=== PATIENT | female | born 1945 | race Caucasian/White ===

== ENCOUNTER → 2018-01-28 | Outpatient (CLI) | payer OTHER ==
[~2018-01-28] MED LIST: ATOR-22 PO; HYDC25 PO; LISI-461 PO; OMEP20CA9 OR; SERT50TA PO; SYNUNK
[2018-01-28 12:08] LABS: BASO % 0.3 %; BASO ABS # 0.02 K/uL (0-0.2); EOS % 2.2 %; EOS ABS # 0.15 K/uL (0-0.5); HEMATOCRIT 38.5 % (37-47); IG# 0.01 K/uL (0.00-0.02); LYMPH % 19.4 %; LYMPH ABS # 1.32 K/uL (1.2-3.4); MEAN CELL VOLUME 88.1 fL (80-100); MEAN CORPUSCULAR HEMOGLOBIN 29.7 pg (25-34); MEAN CORPUSCULAR HGB CONC 33.8 g/dl (32-36); MEAN PLATELET VOLUME 10.5 fL (7.4-10.4); MONO % 5.6 %; MONO ABS # 0.38 K/uL (0.11-0.59); NEUT % 72.4 %; NEUT ABS # 4.93 K/uL (1.4-6.5); PLATELET COUNT 198 K/uL (130-400); RED CELL DISTRIBUTION WIDTH CV 14.9 % (11.5-14.5); WHITE BLOOD COUNT 6.81 K/uL (4.8-10.8)
[2018-01-28 12:41] LABS: ALBUMIN 3.7 gm/dl (3.4-5.0); ALT/SGPT 58 U/L (12-78); AST/SGOT 37 U/L (15-37); BLOOD UREA NITROGEN 16 mg/dl (7-18); CALCIUM 8.9 mg/dl (8.5-10.1); CARBON DIOXIDE 24 mmol/L (21-32); CREATININE 1.04 mg/dl (0.60-1.20); GLUCOSE 119 mg/dl (70-99); POTASSIUM 3.9 mmol/L (3.5-5.1); SODIUM 138 mmol/L (136-145)
[2018-01-28 12:53] LABS: ALKALINE PHOSPHATASE 47 U/L (45-117); CHOLESTEROL 255 mg/dl (0-200); LDL CHOLESTEROL CALCULATED 170 mg/dl; TOTAL PROTEIN 7.6 gm/dl (6.4-8.2)
== END | disposition home or self-care (01) ==
LOC: C.LAB1850 10:00
PROVIDERS: ATTEND Internal Medicine
DX: E03.9 Hypothyroidism, unspecified (principal); E78.5 Hyperlipidemia, unspecified; I10 Essential (primary) hypertension; E55.9 Vitamin D deficiency, unspecified

== ENCOUNTER → 2018-06-11 | Day surgery (SDC) | payer OTHER ==
[2018-05-28 09:21] VITALS: Ht 157.5 cm; Wt 90.9 kg
[~2018-06-11] VITALS: Ht 157.5 cm; Wt 90.9 kg
[~2018-06-11] MED LIST changes: +500ML BSS 0.3ML EPI 1:1000PF IRRIG ONE; +ACETAMINOPHEN 325 MG TAB PO PRN; +AMVISC PLUS 0.8ML SYRINGE INT OCU ONE; +ATROPINE SULFATE 0.1 MG/ML 5ML SYR IV PRN; +AcetaZOLAMIDE 250 MG TAB PO SCH; +BETAXOLOL HCL 0.25% OP SUSP PER DROP CHARGE OPR SCH; +BRIMONIDINE TART 0.2% OP SOLN PER DROP CHARGE ONE; +BSS FLUSH ONE; +CARTIA PO; +ENDOCOAT 0.85ML SYRINGE INT OCU ONE; +EpHEDrine SULFATE INJ 50 MG/ML AMP IV PRN; +EpINEphrine INJ 1MG/ML AMP 1 MG/ML AMP ONE; +FENTANYL CITRATE INJ 50 MCG/1 ML 2 ML VIAL IV PRN; -HYDC25 PO; +HYDR25TA4 PO; +LACTATED RINGER'S 1000ML 500 ML IV SCH; +LEVO50TA6 PO; +LIDOCAINE 4% OP SOLN DROP CHARGE ONE; +LIDOCAINE 4% OP SOLN DROP CHARGE OPR SCH; +LIDOCAINE HCL 1% MPF 2 ML VIAL ONE; +MIDAZOLAM HCL 1 MG/ML 2ML VIAL ONE; +MIX: 4ML BSS 1ML EPI 1:1000 PF INSTIL ONE; +MOXIFLOXACIN OPH SOLN PER DROP CHARGE ONE; -OMEP20CA9 OR; +OMEP20CA9 PO; +ONDANSETRON INJ 2 MG/ML 2 ML VIAL IV PRN; +POVIDONE-IODINE OP SOLN 30 ML BTL ONE; +PROPARACAINE 0.5% OP SOLN PER DROP CHARGE OPR SCH; -SYNUNK; +TOBRAMYCIN/DEXAMETHASONE OPH OINT PER APPLN CHARGE ONE
[2018-06-11] MEDS: PHENYLEPHRINE HCL 2.5% OP SOLN PER DROP CHARGE OPR SCH ×2 (06:08→07:29)
--- NOTE | 2018-06-11 06:51 | History & Physical Bridge - SC ---
H&P Re-Evaluation Bridge Note: I have examined the patient, reviewed the History & Physical and in the interval since the performance of the History & Physical I have noted the following changes of clinical significance: No changes noted
[2018-06-11] MEDS: TROPICAMIDE 1% OP SOLN PER DROP CHARGE OPR SCH ×2 (07:30→07:39)
[2018-06-11] MEDS: CYCLOPENTOLATE HCL 1% OP SOLN PER DROP CHARGE OPR SCH ×2 (07:31→07:40)
[2018-06-11] MEDS: MOXIFLOXACIN OPH SOLN PER DROP CHARGE OPR SCH ×2 (07:32→07:41)
--- NOTE | 2018-06-11 07:58 | [facility] Operative Report ---
Operative Report Date of Service Jun 11, 2018. Operative Report 1. PREOPERATIVE DIAGNOSIS: Senile nuclear cataract, right eye. 2. POSTOPERATIVE DIAGNOSIS: Senile nuclear cataract, right eye. 3. PROCEDURE: Phacoemulsification of right cataract with posterior chamber lens implant, type [employer], model MI60L, power +30.0 diopters. ANESTHESIA: Local standby. SURGEON: Dr. Flores. COMPLICATIONS: None. OPERATING TIME: 10 minutes. 4. OPERATION AND FINDINGS: DESCRIPTION OF PROCEDURE: The right pupil was dilated. The anesthetic was administered using a topical technique. The right eye was prepped and draped. A speculum was placed. A clear corneal incision was formed. The chamber was filled with Amvisc Plus and Endocoat. Epinephrine solution was used. A paracentesis was placed. A capsulorrhexis was performed. The nucleus was hydrodissected. The lens was removed with phacoemulsification. Time was 1.76 seconds. The aspiration unit was used to remove the cortex. The capsule was filled with Amvisc Plus. The lens implant was folded and placed into the capsule. The incision was hydrated. The Amvisc was aspirated. The wound was secure. The chamber was deep. The pupil was round. Brimonidine, TobraDex ointment and Vigamox solution were placed. The speculum was removed. The patient was returned to the Recovery Room in stable condition. I attest to the content of the Intraoperative Record and any orders documented therein. Any exceptions are noted below. The scribe's documentation has been prepared in my presence, under my direction and personally reviewed by me in its entirety. I confirm that the note above accurately reflects all work, treatment, procedures, and medical decision making performed by me. I personally scribed for James Flores M.D. ([email or web address]) on 06/11/18 at 07:58. Electronically submitted by Kelly Salgado ([email or web address]).
--- NOTE | 2018-06-11 07:59 | Discharge Instructions-SurgCtr ---
Discharge Instructions Date of Service Jun 11, 2018. Visit Reason for Visit: Cataract Right Eye Discharge Discharge Diagnosis / Problem: lens implant right eye Discharge Goals Goal(s): Improve function Activity Recommendations Activity Limitations: resume your previous activity Lifting Limitations: no more than 10 pounds Exercise/Sports Limitations: gradually increase as tolerated May Resume Sexual Activity: when tolerated Shower/Bathe: tomorrow Driving or Machine Use: resume 1 day after discharge Anesthesia . Post Anesthesia Instructions: If you have had General Anesthesia or IV Sedation: * Do not drive today. * Resume driving when surgeon permits. * Do not make important decisions or sign legal documents today. * Call surgeon for: 1. Temperature elevations greater than 101 degrees F. 2. Uncontrollable pain. 3. Excessive bleeding. 4. Persistent nausea and vomiting. 5. Medication intolerance (nausea, vomiting or rash). * For nausea and vomiting use only clear liquids such as: tea, soda, bouillon until nausea subsides, then gradually increase diet as tolerated. * If you have any concerns or questions, call your surgeon's office. If physician is unavailable and it is an emergency, call 911 or go to the nearest emergency room. . Instructions / Follow-Up Instructions / Follow-Up ACTIVITY RECOMMENDATIONS: * Light activities. * Mild irritation and blurred vision are common for the first few days. * You may walk outside, read, watch television. * Redness around the white part of the eye is common. MEDICATIONS: Resume previous medications unless instructed otherwise by your surgeon. * Take white Diamox (Acetazolamide) tablet at 1 pm today. Start all eye drops at 1 pm today: * Eye drops (today and tomorrow): Prednisone - one drop in operative eye every 3 hours while awake Ofloxacin - one drop in operative eye every 3 hours while awake SPECIAL CARE INSTRUCTIONS: * Tape plastic shield over eye to sleep at night. Call your doctor at with any concerns or problems. FOLLOW UP VISIT: Follow-up with Dr Flores at [facility] as scheduled. Diet Recommendations Home Diet: no limitations Procedures Procedures Performed: Right Cataract Phacoemulsification With Intraocular Lens Implant Pending Studies Studies pending at discharge: no Medical Emergencies . Who to Call and When: Medical Emergencies: If at any time you feel your situation is an emergency, please call 911 immediately. . Non-Emergent Contact Non-Emergency issues call your: Event Mgr Call Non-Emergent contact if: your pain is not controlled [phone] . . "Provider Documentation" section prepared by James Flores. .
[2018-06-11 08:02] VITALS: TEMP 36.5
[2018-06-11 08:28] VITALS: BP 150/78; PULSE 75; O2SAT 95
--- NOTE | 2018-06-11 08:34 | Anesthesia Progress Nt - [facility] ---
Anesthesia Post Op Note Date & Time Jun 11, 2018 at 08:33 Vital Signs Pain Intensity: 2 Vital Signs Past 12 Hours Date Time Temp Pulse Resp B/P (MAP) Pulse Ox O2 Delivery O2 Flow Rate FiO2 06/11/18 08:28 75 16 150/78 (102) 95 Room Air 06/11/18 08:02 36.5 75 16 137/79 (98) 93 Room Air 06/11/18 07:07 36.7 78 16 152/83 (106) 96 Room Air Notes Mental Status: alert / awake / arousable, participated in evaluation Pt Amnestic to Procedure: Yes Nausea / Vomiting: adequately controlled Pain: adequately controlled Airway Patency, RR, SpO2: stable & adequate BP & HR: stable & adequate Hydration State: stable & adequate Anesthetic Complications: no major complications apparent
== END | disposition home or self-care (01) ==
LOC: X.SURG 06:48
PROVIDERS: ATTEND Specialist
DX: H25.11 Age-related nuclear cataract, right eye (principal); I10 Essential (primary) hypertension; Z88.0 Allergy status to penicillin; Z79.899 Other long term (current) drug therapy; E66.01 Morbid (severe) obesity due to excess calories; Z68.43 Body mass index [BMI] 50.0-59.9, adult; F32.9 Major depressive disorder, single episode, unspecified

== ENCOUNTER 2019-03-13 08:08 | Inpatient (IN) ==
[2019-03-13] MEDS ORDERED: ACETAMINOPHEN 1,000 MG/100 ML VIAL IV ONE (08:34)
[2019-03-13] MEDS ORDERED: SODIUM CHLORIDE 0.9% 1000ML 1,000 ML IV ONE (08:36)
--- NOTE | 2019-03-13 08:56 | XRay Report ---
XR chest 1V portable CLINICAL HISTORY: 73 years-old Female presenting with chest pain, SOB. TECHNIQUE: Portable upright AP view of the chest was obtained. COMPARISON: None. FINDINGS: Atherosclerosis of the aortic arch. Cardiac silhouette mildly enlarged. Mildly low lung volumes. Coar sened lung markings. Right basilar opacity. No large effusion or pneumothorax. Degenerative changes o f the thoracic spine. Upper abdomen normal. IMPRESSION: 1. Right basilar opacity, possibly subsegmental atelectasis although this is indeterminate. Confirma tion with PA and lateral views to be considered. 2. Mild cardiomegaly. Coarsened lung markings could relate to underlying mild interstitial congestiv e change. No bolivar pulmonary edema. Electronically signed by: Grant Jameson M.D. 03/13/2019 8:55 AM
[2019-03-13 09:05] LABS: Hematocrit (blood only) 30.5 % (37-47); Hemoglobin 10.3 g/dL (12.0-16.0); Mean Corpuscular Hgb Conc 33.8 g/dL (32-36); Mean Corpuscular Volume 86.4 fL (80-100); Mean Platelet Volume 9.5 fL (7.4-10.4); Nucleated RBC # (auto) 0.02 K/uL (0-0); Nucleated RBC % (auto) 0.1 %; Platelet Count 111 K/uL (130-400); RDW Coefficient of Variation 18.6 % (11.5-14.5); RDW Standard Deviation 58.1 fL (36.4-46.3); Red Blood Count 3.53 M/uL (4.2-5.4); White Blood Count 15.56 K/uL (4.8-10.8)
[2019-03-13 09:21] LABS: Alanine Aminotransferase 40 U/L (12-78); Albumin Level 3.1 gm/dl (3.4-5.0); Aspartate Aminotransferase 21 U/L (15-37); BUN Creatinine Ratio 12.3 (10-20); Blood Urea Nitrogen 13 mg/dl (7-18); Calcium 8.3 mg/dl (8.5-10.1); Carbon Dioxide 23 mmol/L (21-32); Chloride 102 mmol/L (98-107); Creatinine Clr Calc Pharmacy 51.1 ml/min; Est GFR (African American) 58.7; Est GFR (Non-African American) 50.7; Glucose 140 mg/dl (70-99); Sodium 134 mmol/L (136-145)
[2019-03-13 09:26] LABS: Alkaline Phosphatase 56 U/L (45-117); Bilirubin,Total 1.3 mg/dl (0.2-1); Globulin 3.2 gm/dl (2.5-4.0); Total Protein 6.3 gm/dl (6.4-8.2); Troponin I < 0.015 ng/ml (0-0.045)
[2019-03-13 09:52] LABS: Basophils # (auto) 0.01 K/uL (0-0.2); Basophils % (auto) 0.1 %; Eosinophils # (auto) 0.01 K/uL (0-0.5); Eosinophils % (auto) 0.1 %; Immature Granulocytes % (auto) 2.6 %; Lymphocytes # (auto) 0.65 K/uL (1.2-3.4); Lymphocytes % (auto) 4.2 %; Monocytes # (auto) 0.56 K/uL (0.11-0.59); Monocytes % (auto) 3.6 %; Neutrophils # (auto) 13.93 K/uL (1.4-6.5); Neutrophils % (auto) 89.4 %; Toxic Granulation 1+
--- NOTE | 2019-03-13 10:52 | XRay Report ---
XR chest 2V routine CLINICAL HISTORY: 73 years-old Female presenting with Eval R basilar infiltrate vs atelectasis. TECHNIQUE: PA and lateral views of the chest were obtained. COMPARISON: AP view of the chest performed earlier today. FINDINGS: Atherosclerosis of the aortic arch. Cardiac silhouette enlarged. Bandlike basilar opacities noted in the lower lobes. No pleural effusion or pneumothorax. Degenerative changes of the thoracic spine. Upp er abdomen normal. IMPRESSION: 1. Minimal basilar opacities likely atelectasis or scarring. No convincing evidence of acute cardiop ulmonary disease. 2. Cardiomegaly. Electronically signed by: Grant Jameson M.D. 03/13/2019 10:50 AM
--- NOTE | 2019-03-13 11:02 | Emergency Department Note ---
History of Present Illness General Chief complaint: Cough Stated complaint: COUGH, FEVER, DRY SKIN Time Seen by Provider: 03/13/19 08:12 History of Present Illness Maximum Pain Intensity: 0 73-year-old female, history of breast cancer recently completing a course of chemotherapy, who presents to the emergency department with complaint of sore throat, shortness of breath, dry nonproductive cough, weakness, intermittent diarrhea, loss of appetite and fever of 100.4 F this morning. The patient reports discomfort when attempting to drink fluids. The patient completed her last round of chemotherapy on 03/02/2019. She was scheduled to drive to [facility] today to see her oncologist and surgeon to discuss planning for bilateral mastectomy. After her mastectomy procedure, the patient reports that she then is to undergo radiation therapy. The patient denies any urinary symptoms, back pain or abdominal pain. She does not recall any sick contacts. She rates her overall discomfort a 2 out of 10. Home Medications Home Medications Medication Instructions Recorded Confirmed Type acetaminophen [Tylenol Extra 500 mg PO Q6H PRN 03/13/19 03/13/19 History Strength] cholecalciferol (vitamin D3) 2,000 unit PO HS 03/13/19 03/13/19 History [Vitamin D3] cyclophosphamide 0 mg IV UD 03/13/19 03/13/19 History dexamethasone 8 mg PO UD 03/13/19 03/13/19 History diltiazem HCl [Cartia XT] 120 mg PO QAM 03/13/19 03/13/19 History levothyroxine 50 mcg PO QAM 03/13/19 03/13/19 History lisinopril 10 mg PO QAM 03/13/19 03/13/19 History omeprazole 10 mg PO QAM 03/13/19 03/13/19 History paclitaxel 0 mg IV UD 03/13/19 03/13/19 History sertraline 100 mg PO QAM 03/13/19 03/13/19 History Allergies Allergy/AdvReac Type Severity Reaction Status Date / Time Penicillins Allergy Intermediate RASH Unverified 03/13/19 11:42 shellfish derived Allergy Mild HIVES RASH Unverified 03/13/19 11:42 Past Med/Surg History Medical History Depression GERD (gastroesophageal reflux disease) HTN (hypertension) Hypothyroid Breast cancer PNA (pneumonia) No significant past surgical history Family History Father Stroke Social History Preferred Language: Japanese Communication Ability: Effective 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 Denies difficulty swallowing or oral lesions. PULMONARY: See HPI. CARDIOVASCULAR: Denies chest pain, palpitations, dyspnea on exertion, orthopnea or peripheral edema. GASTROINTESTINAL: Denies any significant nausea, vomiting, or abdominal pain. GENITOURINARY: Denies dysuria, frequency, urgency or nocturia. NEUROLOGIC: Denies history of epilepsy, CVA, TIA or chronic headaches. MUSCULOSKELETAL: Denies history of joint tenderness/swelling. SKIN: Denies rashes or lesions. PSYCHIATRIC: History of depression. ENDOCRINE: Denies history of diabetes. Reports history of hypothyroidism. Physical Exam Vital Signs Vital Signs - 24 hr 03/13/19 08:16 03/13/19 08:50 03/13/19 09:02 Temperature 37.2 C Temperature Source Oral Sepsis Recent Fever Within 48 Hours No Sepsis New/Unexplained Change in Mental Status No Sepsis Action Taken by Nursing No Action Required Pulse Rate 122 H 101 H Pulse Rate from SpO2 Sensor 100 H Respiratory Rate 18 14 Respiratory Effort / Characteristics Non-Labored Spontaneous Respiratory Depth Normal Respiratory Pattern Regular Blood Pressure 137/69 131/80 Blood Pressure Mean 91 97 Blood Pressure Position Sitting Pulse Oximetry 96 87 L 94 Oxygen Delivery Method Room Air Room Air Nasal Cannula Oxygen Flow Rate 2 03/13/19 09:31 03/13/19 10:01 03/13/19 10:02 Temperature Temperature Source Sepsis Recent Fever Within 48 Hours Sepsis New/Unexplained Change in Mental Status Sepsis Action Taken by Nursing Pulse Rate 94 H 93 H 92 H Pulse Rate from SpO2 Sensor 94 H 94 H 92 H Respiratory Rate 19 20 20 Respiratory Effort / Characteristics Respiratory Depth Respiratory Pattern Blood Pressure 135/68 125/69 Blood Pressure Mean 90 87 Blood Pressure Position Pulse Oximetry 95 96 95 Oxygen Delivery Method Oxygen Flow Rate 2 2 03/13/19 10:30 03/13/19 10:31 03/13/19 11:00 Temperature 36.8 C Temperature Source Sepsis Recent Fever Within 48 Hours Sepsis New/Unexplained Change in Mental Status Sepsis Action Taken by Nursing Pulse Rate 91 H 91 H Pulse Rate from SpO2 Sensor 91 H 91 H 100 H Respiratory Rate 18 19 Respiratory Effort / Characteristics Respiratory Depth Respiratory Pattern Blood Pressure 96/54 L Blood Pressure Mean 68 Blood Pressure Position Pulse Oximetry 94 94 96 Oxygen Delivery Method Oxygen Flow Rate 03/13/19 11:25 03/13/19 11:30 03/13/19 12:01 Temperature Temperature Source Sepsis Recent Fever Within 48 Hours Sepsis New/Unexplained Change in Mental Status Sepsis Action Taken by Nursing Pulse Rate Pulse Rate from SpO2 Sensor 92 H 91 H 90 Respiratory Rate Respiratory Effort / Characteristics Respiratory Depth Respiratory Pattern Blood Pressure 126/63 133/66 120/61 Blood Pressure Mean 84 88 80 Blood Pressure Position Pulse Oximetry 96 96 96 Oxygen Delivery Method Oxygen Flow Rate 03/13/19 12:04 03/13/19 12:31 03/13/19 13:00 Temperature Temperature Source Sepsis Recent Fever Within 48 Hours Sepsis New/Unexplained Change in Mental Status Sepsis Action Taken by Nursing Pulse Rate 85 Pulse Rate from SpO2 Sensor 85 85 Respiratory Rate 17 Respiratory Effort / Characteristics Non-Labored Spontaneous SOB on Exertion Respiratory Depth Normal Respiratory Pattern Blood Pressure 114/63 119/59 L Blood Pressure Mean 80 79 Blood Pressure Position Pulse Oximetry 96 95 Oxygen Delivery Method Nasal Cannula Oxygen Flow Rate 2 CONSTITUTIONAL: Healthy and well nourished. Alert and oriented X 3. Patient does not appear in any acute distress, nor does she appear toxic. HEENT: Normocephalic, atraumatic. Pupils equal, round and reactive. Examination of the ears and nares are clear. Examination of the oropharynx shows minimal posterior pharyngeal erythema. Mucous membranes are dry. No exudates noted. NECK: Full active range of motion without discomfort. No nuchal rigidity. No JVD or carotid bruits. LYMPHATICS: No cervical chain adenopathy appreciated. RESPIRATORY: Clear to auscultation bilaterally with no wheezing, crackles, rhonchi or stridor. CARDIOVASCULAR: Regular rate and rhythm with no murmurs, rubs or gallops. GASTROINTESTINAL: Bowel sounds present in all quadrants. Abdomen is soft and nontender to palpation. MUSCULOSKELETAL: Full range of motion of all joints without discomfort. INTEGUMENTARY: No rash or other significant dermatologic conditions noted. HEMATOLOGIC: No ecchymosis or petechiae. PSYCHIATRIC: Positive affect. NEUROLOGIC: No focal neurologic deficits noted. Course Patient history and physical exam were performed. Nurse's notes were reviewed. Initial vital signs were reviewed. The patient is currently afebrile, but does have a heart rate of 122 bpm. She is normotensive. IV access was established, and labs were drawn. The patient was hydrated with normal saline, and administered IV Tylenol. Review of labs shows a moderate leukocytosis with left shift and bandemia. No neutropenia is noted. Hemoglobin is 10.3. I did review labs that were performed for the patient on 03/02/2019 that showed a hemoglobin of 9.9 and a count of 163,000. Lately count today is 111,000. INR is 1.2. CMP shows a mild hyponatremia and mildly elevated total bilirubin. LFTs are normal. Sed rate and C-reactive protein are markedly elevated with a [id number] lactate elevation of 2.29. An initial portable chest x-ray shows a right basilar infiltrate versus atelectasis. A two-view chest x-ray was therefore performed and did not show any obvious consolidations. Initial ECG shows a sinus bradycardia of [address] elevation or ischemic changes. The case was further discussed with Dr. Mata, ED attending physician, who recommended additional IV hydration, along with IV cefepime and vancomycin antibiotics. The case was then discussed with Dr. Melba Bradford, [facility] hospitalist. The patient was evaluated and admitted to the hospital. Please see their dictation for further treatment and final disposition. Administered Medications Sodium Chloride (Nss 1000ml) 1,000 mls @ 125 mls/hr IV .Q8H STA Stop: 03/13/19 19:46 Last Infusion: 03/13/19 16:15 Dose: 0 mls/hr Documented by: [id number] Admin: 03/13/19 12:56 Dose: 125 mls/hr Documented by: [id number] Sodium Chloride (1/2 Nss) 1,000 mls @ 50 mls/hr IV .Q20H TERA Stop: 04/12/19 16:59 Last Admin: 03/13/19 16:18 Dose: 50 mls/hr Documented by: [id number] Discontinued Medications Acetaminophen (Ofirmev) 1,000 mg in 100 mls @ 400 mls/hr IV NOW ONE Stop: 03/13/19 08:48 Last Infusion: 03/13/19 09:27 Dose: 0 mls/hr Documented by: [id number] Admin: 03/13/19 09:09 Dose: 400 mls/hr Documented by: [id number] Sodium Chloride (Nss 1000ml) 1,000 mls @ 999 mls/hr IV .Q1H1M ONE Stop: 03/13/19 09:36 Last Infusion: 03/13/19 10:11 Dose: 0 mls/hr Documented by: [id number] Admin: 03/13/19 09:09 Dose: 999 mls/hr Documented by: [id number] Sodium Chloride (Nss 1000ml) 500 mls @ 999 mls/hr IV .Q31M ONE Stop: 03/13/19 12:17 Last Infusion: 03/13/19 12:56 Dose: 0 mls/hr Documented by: [id number] Admin: 03/13/19 12:23 Dose: 999 mls/hr Documented by: [id number] Vancomycin HCl 1,750 mg/ (Sodium Chloride) 535 mls @ 200 mls/hr IV NOW ONE; Protocol Stop: 03/13/19 14:27 Last Infusion: 03/13/19 15:30 Dose: 0 mls/hr Documented by: [id number] Admin: 03/13/19 12:24 Dose: 200 mls/hr Documented by: [id number] Cefepime HCl 1,000 mg/ Syringe 11.3 mls @ 5.5 mls/min IV NOW STA; Protocol Stop: 03/13/19 11:49 Last Admin: 03/13/19 12:39 Dose: 5.5 mls/min Documented by: [id number] Medical Decision Making Medical Records Attestation: I reviewed the patient's medical records. Home Medications Current Medication List: was personally reviewed by me Laboratory Data Attestation: I reviewed the patient's lab results. Result diagrams: 03/13/19 08:56 03/13/19 08:56 Lab Results 03/13/19 03/13/19 03/13/19 Range/Units 08:56 08:56 09:01 WBC 15.56 H (4.8-10.8) K/uL RBC 3.53 L (4.2-5.4) M/uL Hgb 10.3 L (12.0-16.0) g/dL Hct 30.5 L (37-47) % MCV 86.4 (80-100) fL MCH 29.2 (25-34) pg MCHC 33.8 (32-36) g/dL RDW Std Deviation 58.1 H (36.4-46.3) fL RDW Coeff of Catrachito 18.6 H (11.5-14.5) % Plt Count 111 L (130-400) K/uL MPV 9.5 (7.4-10.4) fL Immature Gran % (Auto) 2.6 % Neut % (Auto) 89.4 % Lymph % (Auto) 4.2 % Ward % (Auto) 3.6 % Eos % (Auto) 0.1 % Baso % (Auto) 0.1 % Immature Gran # (Auto) 0.40 H (0.00-0.02) K/uL Neut # (Auto) 13.93 H (1.4-6.5) K/uL Lymph # (Auto) 0.65 L (1.2-3.4) K/uL Ward # (Auto) 0.56 (0.11-0.59) K/uL Eos # (Auto) 0.01 (0-0.5) K/uL Baso # (Auto) 0.01 (0-0.2) K/uL Absolute Nucleated RBC 0.02 H (0-0) K/uL Nucleated RBC % (auto) 0.1 % Toxic Granulation 1+ Sodium 134 L (136-145) mmol/L Potassium 4.0 (3.5-5.1) mmol/L Chloride 102 (98-107) mmol/L Carbon Dioxide 23 (21-32) mmol/L Anion Gap 9.0 (3-11) BUN 13 (7-18) mg/dl Creatinine 1.09 (0.6-1.2) mg/dl Est Cr Clr Drug Dosing 51.1 ml/min Est GFR ( Amer) 58.7 Est GFR (Non-Af Amer) 50.7 BUN/Creatinine Ratio 12.3 (10-20) Glucose 140 H (70-99) mg/dl POC Lactic Acid Braden 2.29 H (0.90-1.70) mmol/L Calcium 8.3 L (8.5-10.1) mg/dl Total Bilirubin 1.3 H (0.2-1) mg/dl AST 21 (15-37) U/L ALT 40 (12-78) U/L Alkaline Phosphatase 56 (45-117) U/L Troponin I < 0.015 (0-0.045) ng/ml C-Reactive Protein 14.90 H (0-0.29) mg/dl Total Protein 6.3 L (6.4-8.2) gm/dl Albumin 3.1 L (3.4-5.0) gm/dl Globulin 3.2 (2.5-4.0) gm/dl Albumin/Globulin Ratio 1.0 (0.9-2) Imaging Data Attestation: I personally reviewed and interpreted this imaging study as follows: My Impression: Initial portable chest x-ray shows a right basilar consolidation versus atelectasis. No cardiomegaly or pneumothorax noted. Repeat two-view chest x-ray shows minimal basilar opacities likely atelectasis or scarring. Cardia megaly is noted. Radiologist reports were reviewed. Radiologist's Impression: XR chest 1V portable CLINICAL HISTORY: 73 years-old Female presenting with chest pain, SOB. TECHNIQUE: Portable upright AP view of the chest was obtained. COMPARISON: None. FINDINGS: Atherosclerosis of the aortic arch. Cardiac silhouette mildly enlarged. Mildly low lung volumes. Coarsened lung markings. Right basilar opacity. No large effusion or pneumothorax. Degenerative changes of the thoracic spine. Upper a bdomen normal. IMPRESSION: 1. Right basilar opacity, possibly subsegmental atelectasis although this is indeterminate. Confirmation with PA and lateral views to be considered. 2. Mild cardiomegaly. Coarsened lung markings could relate to underlying mild interstitial congestive change. No bolivar pulmonary edema. XR chest 2V routine CLINICAL HISTORY: 73 years-old Female presenting with Eval R basilar infiltrate vs atelectasis. TECHNIQUE: PA and lateral views of the chest were obtained. COMPARISON: AP view of the chest performed earlier today. FINDINGS: Atherosclerosis of the aortic arch. Cardiac silhouette enlarged. Bandlike basilar opacities noted in the lower lobes. No pleural effusion or pneumothorax. Degenerative changes of the thoracic spine. Upper abdomen normal. IMPRESSION: 1. Minimal basilar opacities likely atelectasis or scarring. No convincing evidence of acute cardiopulmonary disease. 2. Cardiomegaly. ECG Data Attestation: I personally reviewed and interpreted this ECG as follows: Indication: SOB/dyspnea and weakness Rhythm: sinus bradycardia Comparison ECG Date: no prior available Blood Pressure Blood Pressure Findings: Normal blood pressure MDM Narrative Patient presents for evaluation of weakness, cough, sore throat and fever for less than 24 hours. Patient has a history of breast cancer with recent chemotherapy. The patient is currently not neutropenic. She does have a moderate leukocytosis and mild thrombocytopenia. I suspect the source of the patient's infection is likely upper respiratory. Chest x-ray does show consolidation versus atelectasis, and given the patient's current fever, underlying pneumonia cannot be ruled out. Based on work-up, I do not suspect myocardial infarction. Chest x-ray is not consistent with heart failure. Impression & Plan Upper respiratory infection, Breast cancer Discharge Plan Visit Data *Final* Discharge Date/Time: 03/13/19 13:52 Chief Complaint: Cough Stated Complaint: COUGH, FEVER, DRY SKIN ED Provider: Caleb Mata ED Midlevel Provider: Jesu Hector Discharge Problem: Upper respiratory infection, Breast cancer Patient Disposition: Admitted As Inpatient Discharge Instructions Interventions: ED Discharge Assessment Last Done: 03/13/19 13:52
[2019-03-13] MEDS ORDERED: SODIUM CHLORIDE 0.9% 1000ML 1,000 ML IV STA (11:47)
[2019-03-13] MEDS ORDERED: SODIUM CHLORIDE 0.9% 1000ML 500 ML IV ONE (11:47)
[2019-03-13] MEDS ORDERED: VANCOMYCIN CONSULT ACTIVE PRN (11:47)
[2019-03-13] MEDS ORDERED: VANCOMYCIN HCL 1,750 MG in SODIUM CHLORIDE 0.9% 500 ML IV ONE (11:47)
[2019-03-13] MEDS ORDERED: CEFEPIME 1,000 MG in SYRINGE 0 ML IV STA (11:47)
--- NOTE | 2019-03-13 13:37 | History & Physical Report ---
Date of Service March 13, 2019 Assessment & Plan (1) PNA (pneumonia): CXR as noted, PNA vs atelectasis Pt has elevated WBC, however recent steroid use BP is borderline hypoTN, however BP medication was recently increased Elevated lactic acid Given pt's immunocompromised state, will treat as PNA for now Cefepime/vanco started in the ED, continue with cefepime and will re-dose vanco if febrile (2) Breast cancer: Just finished chemo [place] [facility] [place] m[place] in March, date is TBD, with radiation after (3) Hypothyroid: continue home meds (4) HTN (hypertension): Pt with lisinopril increased last week from 10mg to 20mg and home BPs have been lower Monitor with 10mg for now (5) GERD (gastroesophageal reflux disease): continue home meds (6) Depression: continue home meds (7) DVT prophylaxis: Lovenox for DVT proph History of Present Illness Primary Care Provider: Armin Mosher MD 73 y/o F c/o cough and SOB. Pt states she has been coughing and getting SOB with exertion only for the last 2 days. She has had decreased appetite for some time now, which she associates with her chemo. She does tolerate the PO she takes. She has intermittent diarrhea since starting her chemo as well. Pt noted a fever of 100.4 this AM, so came to the ED. Pt received IVF and abx in the ED and states she is feeling much improved. Pt denies chest pain, abd pain, n/v, LE pain or swelling. Allergies Allergy/AdvReac Type Severity Reaction Status Date / Time Penicillins Allergy Intermediate RASH Unverified 03/13/19 11:42 shellfish derived Allergy Mild HIVES RASH Unverified 03/13/19 11:42 Home Medications Home Medications Medication Instructions Recorded Confirmed Type acetaminophen [Tylenol Extra 500 mg PO Q6H PRN 03/13/19 03/13/19 History Strength] cholecalciferol (vitamin D3) 2,000 unit PO HS 03/13/19 03/13/19 History [Vitamin D3] cyclophosphamide 0 mg IV UD 03/13/19 03/13/19 History dexamethasone 8 mg PO UD 03/13/19 03/13/19 History diltiazem HCl [Cartia XT] 120 mg PO QAM 03/13/19 03/13/19 History levothyroxine 50 mcg PO QAM 03/13/19 03/13/19 History lisinopril 10 mg PO QAM 03/13/19 03/13/19 History omeprazole 10 mg PO QAM 03/13/19 03/13/19 History paclitaxel 0 mg IV UD 03/13/19 03/13/19 History sertraline 100 mg PO QAM 03/13/19 03/13/19 History Past Med/Surg History Family History Father Stroke Social History Preferred Language: Nepali Communication Ability: Effective Video Editing Intern Required: No Beliefs That Will Affect Care: None Current Living Situation: Spouse Other Information That Helps Us Care for You: No Feels Safe at Home: Yes Safety Concerns: Feels Safe At This Time Smoking Status: Never smoker Do You Dip or Chew Tobacco: No Second Hand Exposure: No Tobacco Cessation Education Requested by Patient: No Hx Alcohol Use: Yes (occasional prior to cancer, dx but none now) Hx Substance Use: No Review of Systems Review of Systems: Pertinent positives and negatives reviewed in HPI--all others negative Physical Exam Constitutional: WD/WN, vitals as above Eyes: normal visual campa by confrontation and + anicteric sclerae Neck: normal visual inspection and trachea midline Respiratory: normal respiratory effort; no respiratory distress Auscultation: + crackles (R base); no wheezes Cardiovascular: Rate/Rhythm: regular rate and regular rhythm Gastrointestinal (Abdomen): Inspection/Auscultation: abdomen not distended Percussion/Palpation: abdomen soft; abdomen nontender Musculoskeletal: Head/Neck/Chest: normocephalic and head atraumatic negative for edema, peripheral pulses intact Skin: no rashes, warm and dry Neurologic: awake; not confused Speech / Cognition: normal speech Psychiatric: A+Ox3, euthymic affect Results & Data Vital Signs (Past 12 Hours) Vital Signs Temp Pulse Resp BP Pulse Ox 03/13/19 13:00 85 17 119/59 L 95 03/13/19 12:31 114/63 96 03/13/19 12:01 120/61 96 03/13/19 11:30 133/66 96 03/13/19 11:25 126/63 96 03/13/19 11:00 36.8 C 96 03/13/19 10:31 91 H 19 96/54 L 94 03/13/19 10:30 91 H 18 94 03/13/19 10:02 92 H 20 95 03/13/19 10:01 93 H 20 125/69 96 03/13/19 09:31 94 H 19 135/68 95 03/13/19 09:02 101 H 14 131/80 94 03/13/19 08:50 87 L 03/13/19 08:16 37.2 C 122 H 18 137/69 96 Diagnostic Findings CXR: atelectasis vs RLL PNA ECG Rhythm: normal sinus Code Status & VTE Plan Code Status Full code VTE Prophylaxis Plan VTE Prophylaxis will be ordered: Yes
[2019-03-13] MEDS ORDERED: ACETAMINOPHEN 500 MG TAB PO PRN (15:56)
[2019-03-13] MEDS ORDERED: MAGNESIUM HYDROXIDE SUSP 30 ML UDC PO PRN (15:56)
[2019-03-13] MEDS: SODIUM CHLORIDE 0.45 % 1,000 ML IV SCH ×2 (16:17→16:18)
--- NOTE | 2019-03-13 16:36 | Emergency Department Note ---
Entered by Krysta Villanueva acting as a scribe for Caleb Mata MD ED Visit Note The patient was seen and examined by myself in conjunction with the advanced care provider, Jesu Hector PA-C. I agree with the history, physical and findings as documented. Please see the note for disposition and details. . The scribe's documentation has been prepared under my direction and personally reviewed by me in its entirety. I confirm that the note above accurately reflects all work, treatment, procedures, and medical decision making performed by me.
[2019-03-13 16:58] LABS: INR 1.2 (0.9-1.1); Prothrombin Time 11.7 Seconds (9.0-12.0)
[2019-03-13] MEDS: ONDANSETRON INJ 2 MG/ML 2 ML VIAL IV PRN (19:38)
[2019-03-13] MEDS: CHOLECALCIFEROL 1,000 UNITS TAB PO SCH (20:46)
[2019-03-13] MEDS: CEFEPIME 2,000 MG in SYRINGE 7.5 ML IV SCH (20:46)
[2019-03-14] MEDS: LEVOTHYROXINE SODIUM 50 MCG TABLET PO SCH (05:49)
[2019-03-14 06:00] LABS: Hematocrit (blood only) 26.3 % (37-47); Hemoglobin 8.6 g/dL (12.0-16.0); Mean Corpuscular Hgb Conc 32.7 g/dL (32-36); Mean Corpuscular Volume 88.6 fL (80-100); RDW Coefficient of Variation 18.6 % (11.5-14.5); RDW Standard Deviation 59.6 fL (36.4-46.3); Red Blood Count 2.97 M/uL (4.2-5.4); White Blood Count 10.44 K/uL (4.8-10.8)
[2019-03-14 06:34] LABS: BUN Creatinine Ratio 11.9 (10-20); Calcium 7.9 mg/dl (8.5-10.1); Creatinine Clr Calc Pharmacy 67.9 ml/min; Est GFR (African American) 82.9; Est GFR (Non-African American) 71.5
[2019-03-14 06:35] LABS: Anisocytosis Present; Basophils # (auto) 0.01 K/uL (0-0.2); Basophils % (auto) 0.1 %; Dohle Bodies 1+; Eosinophils # (auto) 0.01 K/uL (0-0.5); Eosinophils % (auto) 0.1 %; Immature Granulocytes # (auto) 0.12 K/uL (0.00-0.02); Immature Granulocytes % (auto) 1.1 %; Lymphocytes # (auto) 0.38 K/uL (1.2-3.4); Lymphocytes % (auto) 3.6 %; Mean Platelet Volume 9.5 fL (7.4-10.4); Monocytes # (auto) 0.63 K/uL (0.11-0.59); Neutrophils # (auto) 9.29 K/uL (1.4-6.5); Neutrophils % (auto) 89.1 %; Phosphorus 3.6 mg/dl (2.5-4.9); Platelet Count 82 K/uL (130-400); Tear Drop Cells 1+
[2019-03-14] MEDS: CEFEPIME 2,000 MG in SYRINGE 7.5 ML IV SCH ×2 (08:36→20:42)
[2019-03-14] MEDS: dilTIAZem HCL 120 MG CAPCR PO SCH (08:41)
[2019-03-14] MEDS: PANTOprazole 40 MG TAB PO SCH (08:41)
[2019-03-14] MEDS: SERTRALINE HCL 100 MG TABLET PO SCH (08:42)
[2019-03-14] MEDS: LISINOPRIL 10 MG TAB PO SCH (08:42)
[2019-03-14] MEDS: ENOXAPARIN INJ 40 MG/0.4 ML SYR SQ SCH (08:43)
[2019-03-14] MEDS: ACETAMINOPHEN 325 MG TAB PO PRN (10:18)
--- NOTE | 2019-03-14 12:05 | Hospitalist Progress Note ---
Date of Service March 14, 2019 Assessment & Plan (1) PNA (pneumonia): CXR as noted, PNA vs atelectasis Pt has elevated WBC on admission, however recent steroid use--improving BP is borderline hypoTN on admission, however BP medication was recently increased Stable BP on lisinopril 10mg (prior dose) Elevated lactic acid Given pt's immunocompromised state, will treat as PNA for now Cefepime/vanco started in the ED, continue with cefepime only, will re-dose vanco if febrile Add humidifier to O2 (2) Breast cancer: Just finished chemo [place] [facility] [place] plan [place] b/[place] mastectomy in March, date is TBD, with radiation after (3) Hypothyroid: continue home meds (4) HTN (hypertension): Pt with lisinopril increased last week from 10mg to 20mg and home BPs have been lower Monitor with 10mg for now--stable (5) GERD (gastroesophageal reflux disease): continue home meds (6) Depression: continue home meds (7) DVT prophylaxis: Lovenox for DVT proph Subjective Pt states she feels weak today. She is still with GARRETT, but no SOB at rest. She feels that that O2 is drying out her nose so she is breathing through her mouth. No diarrhea today. Ongoing appetite issues. Did not eat much for breakfast. She states she feels "shaky". Nursing in to check BS and it was 133. No n/v. She does have a headache today. Pt denies fever, chest pain, abd pain, LE pain or swelling. Review of Systems Review of Systems: Pertinent positives and negatives reviewed in HPI--all others negative Physical Exam Constitutional: WD/WN, vitals as above Eyes: normal visual campa by confrontation and + anicteric sclerae Neck: normal visual inspection and trachea midline Respiratory: normal respiratory effort; no respiratory distress Auscultation: + crackles (R base); no wheezes Cardiovascular: Rate/Rhythm: regular rate and regular rhythm Gastrointestinal (Abdomen): Inspection/Auscultation: abdomen not distended Percussion/Palpation: abdomen soft; abdomen nontender Musculoskeletal: Head/Neck/Chest: normocephalic and head atraumatic Neg edema Skin: no rashes, warm and dry Neurologic: awake; not confused Speech / Cognition: normal speech Psychiatric: A+Ox3, euthymic affect Results & Data Vital Signs (Past 12 Hours) Vital Signs Temp Pulse Resp BP Pulse Ox 03/14/19 10:21 37.5 C 95 H 16 129/68 90 03/14/19 07:45 37 C 88 17 148/68 H 98
[2019-03-14] MEDS: CHOLECALCIFEROL 1,000 UNITS TAB PO SCH (20:42)
[2019-03-15] MEDS: LEVOTHYROXINE SODIUM 50 MCG TABLET PO SCH (06:04)
[2019-03-15] MEDS: ACETAMINOPHEN 325 MG TAB PO PRN (06:06)
[2019-03-15] MEDS: CEFEPIME 2,000 MG in SYRINGE 7.5 ML IV SCH ×2 (08:58→20:18)
[2019-03-15] MEDS: dilTIAZem HCL 120 MG CAPCR PO SCH (09:02)
[2019-03-15] MEDS: PANTOprazole 40 MG TAB PO SCH (09:02)
[2019-03-15] MEDS: LISINOPRIL 10 MG TAB PO SCH (09:02)
[2019-03-15] MEDS: ENOXAPARIN INJ 40 MG/0.4 ML SYR SQ SCH (09:03)
[2019-03-15] MEDS: SERTRALINE HCL 100 MG TABLET PO SCH (09:03)
[2019-03-15] MEDS ORDERED: SODIUM CHLORIDE 0.65% NA SOLN 45 ML (OCEAN) ONE (09:22)
[2019-03-15 10:14] LABS: Hematocrit (blood only) 26.8 % (37-47); Mean Corpuscular Hgb Conc 33.6 g/dL (32-36); Mean Corpuscular Volume 85.9 fL (80-100); RDW Coefficient of Variation 18.1 % (11.5-14.5); RDW Standard Deviation 56.3 fL (36.4-46.3); Red Blood Count 3.12 M/uL (4.2-5.4); White Blood Count 11.66 K/uL (4.8-10.8)
[2019-03-15 10:17] LABS: Mean Platelet Volume 9.3 fL (7.4-10.4); Platelet Count 93 K/uL (130-400)
[2019-03-15 10:31] LABS: BUN Creatinine Ratio 12.8 (10-20); Calcium 8.4 mg/dl (8.5-10.1); Creatinine Clr Calc Pharmacy 62.6 ml/min; Est GFR (Non-African American) 64.7; Potassium 3.7 mmol/L (3.5-5.1)
[2019-03-15 10:32] LABS: Basophils # (auto) 0.02 K/uL (0-0.2); Basophils % (auto) 0.2 %; Eosinophils # (auto) 0.01 K/uL (0-0.5); Eosinophils % (auto) 0.1 %; Immature Granulocytes # (auto) 0.09 K/uL (0.00-0.02); Immature Granulocytes % (auto) 0.8 %; Lymphocytes % (auto) 3.4 %; Monocytes # (auto) 0.55 K/uL (0.11-0.59); Monocytes % (auto) 4.7 %; Neutrophils # (auto) 10.59 K/uL (1.4-6.5); Neutrophils % (auto) 90.8 %
--- NOTE | 2019-03-15 14:56 | Hospitalist Progress Note ---
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 Umanzor at [facility] [place] Current plan is b/l mastectomy in March, date is TBD, with radiation after (4) Hypothyroid: continue home meds (5) HTN (hypertension): Pt with lisinopril increased last week from 10mg to 20mg and home BPs have been lower Monitor with 10mg for now--stable (6) GERD (gastroesophageal reflux disease): continue home meds (7) Depression: continue home meds (8) DVT prophylaxis: Lovenox for DVT proph Subjective Pt is feeling much improved today. She is not weak or shaky today. Her appetite has picked up and no n/v. She is still with cough and GARRETT. Attempted to d/c O2 and pt's sats dropped to high 80s at rest and low 80s with activity. Pt denies fever, chest pain, abd pain, c/d, LE pain or swelling. Review of Systems Review of Systems: Pertinent positives and negatives reviewed in HPI--all others negative Physical Exam Constitutional: WD/WN, vitals as above Eyes: normal visual campa by confrontation and + anicteric sclerae Neck: normal visual inspection and trachea midline Respiratory: normal respiratory effort; no respiratory distress Auscultation: + crackles (R base); no wheezes Cardiovascular: Rate/Rhythm: regular rate and regular rhythm Gastrointestinal (Abdomen): Inspection/Auscultation: abdomen not distended Percussion/Palpation: abdomen soft; abdomen nontender Musculoskeletal: Head/Neck/Chest: normocephalic and head atraumatic Skin: no rashes, warm and dry Neurologic: awake; not confused Speech / Cognition: normal speech Psychiatric: A+Ox3, euthymic affect Results & Data Vital Signs (Past 12 Hours) Vital Signs Temp Pulse Resp BP Pulse Ox 03/15/19 14:45 37.4 C 96 H 16 122/61 90 03/15/19 11:44 93 03/15/19 11:42 81 L 03/15/19 07:31 37.1 C 93 H 16 144/71 H 91
--- NOTE | 2019-03-15 15:36 | XRay Report ---
XR chest 2V routine HISTORY: desats off of O2 COMPARISON: Chest 03/13/2019. FINDINGS: No pneumothorax. No pleural effusions. The heart is mildly enlarged. Mild diffuse interstit ial thickening and basilar densities have likely been progressed. IMPRESSION: Progressive diffuse interstitial thickening and bibasilar densities. This likely represents resolving pulmonary edema. An atypical interstitial pneumonitis could also have a similar appearance. Electronically signed by: Nacho Mckenna M.D. 03/15/2019 3:33 PM
[2019-03-15] MEDS: ONDANSETRON INJ 2 MG/ML 2 ML VIAL IV PRN (15:59)
[2019-03-15] MEDS: CHOLECALCIFEROL 1,000 UNITS TAB PO SCH (20:18)
[2019-03-16] MEDS: LEVOTHYROXINE SODIUM 50 MCG TABLET PO SCH (05:50)
[2019-03-16 06:34] LABS: Hematocrit (blood only) 27.4 % (37-47); Hemoglobin 9.4 g/dL (12.0-16.0); Mean Corpuscular Hgb Conc 34.3 g/dL (32-36); Mean Corpuscular Volume 85.6 fL (80-100); Mean Platelet Volume 9.1 fL (7.4-10.4); Platelet Count 113 K/uL (130-400); RDW Standard Deviation 56.6 fL (36.4-46.3); White Blood Count 12.57 K/uL (4.8-10.8)
[2019-03-16 06:55] LABS: Basophils # (auto) 0.02 K/uL (0-0.2); Basophils % (auto) 0.2 %; Eosinophils # (auto) 0.01 K/uL (0-0.5); Eosinophils % (auto) 0.1 %; Immature Granulocytes # (auto) 0.06 K/uL (0.00-0.02); Immature Granulocytes % (auto) 0.5 %; Lymphocytes # (auto) 0.59 K/uL (1.2-3.4); Lymphocytes % (auto) 4.7 %; Monocytes # (auto) 0.59 K/uL (0.11-0.59); Monocytes % (auto) 4.7 %; Neutrophils % (auto) 89.8 %
[2019-03-16 07:12] LABS: BUN Creatinine Ratio 11.1 (10-20); Calcium 8.6 mg/dl (8.5-10.1); Creatinine Clr Calc Pharmacy 67.1 ml/min; Est GFR (African American) 81.7; Est GFR (Non-African American) 70.4; Potassium 3.5 mmol/L (3.5-5.1)
[2019-03-16] MEDS: LISINOPRIL 10 MG TAB PO SCH (07:56)
[2019-03-16] MEDS: PANTOprazole 40 MG TAB PO SCH (07:56)
[2019-03-16] MEDS: ENOXAPARIN INJ 40 MG/0.4 ML SYR SQ SCH (07:56)
[2019-03-16] MEDS: CEFEPIME 2,000 MG in SYRINGE 7.5 ML IV SCH ×2 (07:56→20:09)
[2019-03-16] MEDS: dilTIAZem HCL 120 MG CAPCR PO SCH (07:56)
[2019-03-16] MEDS: SERTRALINE HCL 100 MG TABLET PO SCH (07:57)
[2019-03-16] MEDS: GUAIFENESIN/DEXTROM SYRUP 100MG/10MG 5ML UDC PO PRN ×2 (10:03→21:50)
[2019-03-16] MEDS: CHOLECALCIFEROL 1,000 UNITS TAB PO SCH (20:10)
--- NOTE | 2019-03-16 22:32 | Hospitalist Progress Note ---
Date of Service March 16, 2019 Assessment & Plan (1) PNA (pneumonia): CXR as noted, PNA vs atelectasis Pt has elevated WBC on admission, however recent steroid use--improving BP is borderline hypoTN on admission, however BP medication was recently increased Stable BP on lisinopril 10mg (prior dose) Elevated lactic acid on admission Given pt's immunocompromised state, treating as PNA for now Cefepime/vanco started in the ED, continue with cefepime only, will re-dose vanco if febrile. 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 Likely multifacotorial from cancer treatment. Will continue to monitor patient. Reviwed x-ray will repeat tomorrow. (2) Anemia: Decreased s/p IVF, but now trending up Likely dilutional and low baseline related to recent chemo Monitor (3) Breast cancer: Just finished [place] [facility] [place], date is TBD, with radiation after (4) Hypothyroid: continue home meds (5) HTN (hypertension): Pt with lisinopril increased last week from 10mg to 20mg and home BPs have been lower Monitor with 10mg for now--stable (6) GERD (gastroesophageal reflux disease): continue home meds (7) Depression: continue home meds (8) DVT prophylaxis: Lovenox for DVT proph Spent 35 minutes in management of patient. Subjective Patient reports that her breathing is better but she still feels fatigued. She is concerned that her energy has not improved Review of Systems Review of Systems: All systems reviewed & are unremarkable except as noted in HPI & below Physical Exam Physical Exam: Constitutional: WD/WN, vitals as above Eyes: normal visual campa by confrontation and + anicteric sclerae Neck: normal visual inspection and trachea midline Respiratory: normal respiratory effort; no respiratory distress Auscultation: + crackles (R base); Cardiovascular: Rate/Rhythm: regular rate and regular rhythm Gastrointestinal (Abdomen): Inspection/Auscultation: abdomen not distended Percussion/Palpation: abdomen soft; abdomen nontender Musculoskeletal: Head/Neck/Chest: normocephalic and head atraumatic Skin: no rashes, warm and dry Neurologic: awake; not confused Speech / Cognition: normal speech Psychiatric: A+Ox3, euthymic affec Results & Data Vital Signs (Past 12 Hours) Vital Signs Temp Pulse Resp BP Pulse Ox 03/16/19 14:46 37.5 C 88 16 104/64 91
[2019-03-17] MEDS: LEVOTHYROXINE SODIUM 50 MCG TABLET PO SCH (05:53)
[2019-03-17] MEDS: CEFEPIME 2,000 MG in SYRINGE 7.5 ML IV SCH ×2 (08:02→21:02)
[2019-03-17] MEDS: dilTIAZem HCL 120 MG CAPCR PO SCH (08:02)
[2019-03-17] MEDS: ENOXAPARIN INJ 40 MG/0.4 ML SYR SQ SCH (08:03)
[2019-03-17] MEDS: SERTRALINE HCL 100 MG TABLET PO SCH (08:03)
[2019-03-17] MEDS: PANTOprazole 40 MG TAB PO SCH (08:03)
[2019-03-17] MEDS: LISINOPRIL 10 MG TAB PO SCH (08:03)
[2019-03-17] MEDS: GUAIFENESIN/DEXTROM SYRUP 100MG/10MG 5ML UDC PO PRN ×2 (08:03→21:17)
--- NOTE | 2019-03-17 15:11 | XRay Report ---
XR chest 1V portable CLINICAL HISTORY: pneumonia COMPARISON STUDY: 03/15/2019 FINDINGS: The heart is borderline enlarged. There are progressive bilateral pulmonary airspace opacit ies. There is an underlying nodular component. Diagnostic considerations include a multifocal pneumon ia versus pulmonary edema superimposed on chronic lung disease.[ IMPRESSION: Progressive bilateral pulmonary airspace opacities. Electronically signed by: Lucas Guerrero M.D. 03/17/2019 3:10 PM
[2019-03-17 15:28] LABS: Basophils # (auto) 0.01 K/uL (0-0.2); Basophils % (auto) 0.1 %; Eosinophils # (auto) 0.02 K/uL (0-0.5); Eosinophils % (auto) 0.2 %; Hematocrit (blood only) 24.3 % (37-47); Immature Granulocytes # (auto) 0.04 K/uL (0.00-0.02); Immature Granulocytes % (auto) 0.5 %; Lymphocytes % (auto) 4.6 %; Mean Corpuscular Hgb Conc 32.9 g/dL (32-36); Mean Corpuscular Volume 86.2 fL (80-100); Monocytes # (auto) 0.48 K/uL (0.11-0.59); Monocytes % (auto) 5.5 %; Neutrophils # (auto) 7.77 K/uL (1.4-6.5); Neutrophils % (auto) 89.1 %; Platelet Count 115 K/uL (130-400); RDW Coefficient of Variation 17.8 % (11.5-14.5); Red Blood Count 2.82 M/uL (4.2-5.4); White Blood Count 8.72 K/uL (4.8-10.8)
[2019-03-17 15:30] LABS: BUN Creatinine Ratio 13.3 (10-20); Calcium 8.3 mg/dl (8.5-10.1); Creatinine Clr Calc Pharmacy 75.2 ml/min; Est GFR (African American) 93.8; Est GFR (Non-African American) 80.9; Magnesium 2.1 mg/dl (1.8-2.4); Phosphorus 2.8 mg/dl (2.5-4.9); Potassium 3.1 mmol/L (3.5-5.1)
[2019-03-17] MEDS: ACETAMINOPHEN 325 MG TAB PO PRN (16:30)
[2019-03-17] MEDS ORDERED: methylPREDNISolone 125 MG/2 ML VIAL IV STA (18:33)
[2019-03-17] MEDS: LEVALBUTEROL HCL 1.25 MG/3 ML NEB NEB SCH (18:55)
[2019-03-17] MEDS ORDERED: methylPREDNISolone 60 MG in SYRINGE 0 ML IV ONE (19:30)
[2019-03-17] MEDS: POTASSIUM CHLORIDE 20 MEQ TABCR PO SCH (21:01)
[2019-03-17] MEDS: LEVOFLOXACIN/D5W 750 MG/150 ML BAG IV SCH (21:02)
[2019-03-17] MEDS: CHOLECALCIFEROL 1,000 UNITS TAB PO SCH (21:03)
--- NOTE | 2019-03-17 22:52 | Hospitalist Progress Note ---
Date of Service March 17, 2019 Assessment & Plan (1) PNA (pneumonia): CXR as noted, PNA vs atelectasis Pt has elevated WBC on admission, however recent steroid use--improving BP is borderline hypoTN on admission, however BP medication was recently increased Stable BP on lisinopril 10mg (prior dose) Elevated lactic acid on admission Given pt's immunocompromised state, treating as PNA for now Cefepime/vanco started in the ED, continue with cefepime only, will re-dose vanco if febrile. 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 Though WBC is better. X-Ray appear to have worsening bilateral infiltrates: worsening pneumonia vs possible early stages of ARDS. Will add second pseudomonal agent: levaquin. Will add steroid. Concern over possibliity that patient may be going into ARDS; currently not there at this point. Patient appears comfortable at rest, will keep patient on med surg overnight. Disucssed with pulmonary. Will also repeat chest x ray in AM. May consider diuerteics in AM, patient does not appear to be wet today. (2) Anemia: Decreased s/p IVF, but now trending up Likely dilutional and low baseline related to recent chemo Monitor (3) Breast cancer: Just finished chemo Follows with Dr. Umanzor at [facility] [place] Current plan is b/l mastectomy in March, date is TBD, with radiation after (4) Hypothyroid: continue home meds (5) HTN (hypertension): Pt with lisinopril increased last week from 10mg to 20mg and home BPs have been lower Monitor with 10mg for now--stable (6) GERD (gastroesophageal reflux disease): continue home meds (7) Depression: continue home meds (8) DVT prophylaxis: Lovenox for DVT proph Spent 35 minutes in management of patient. Subjective 73 yo female reports today feeling more SOB than yesterday. When she ambulated without oxygen her o2 sat dropped in the 70s. Nursing states her lips turned blue. Family was not at bedside. Tried calling but went to voice mail. Review of Systems Review of Systems: All systems reviewed & are unremarkable except as noted in HPI & below Physical Exam Physical Exam: Constitutional: WD/WN, vitals as above Eyes: normal visual campa by confrontation and + anicteric sclerae Neck: normal visual inspection and trachea midline Respiratory: normal respiratory effort; no respiratory distress Auscultation: + crackles (R base); with bilateral rhonchi' Cardiovascular: Rate/Rhythm: regular rate and regular rhythm Gastrointestinal (Abdomen): Inspection/Auscultation: abdomen not distended Percussion/Palpation: abdomen soft; abdomen nontender Musculoskeletal: Head/Neck/Chest: normocephalic and head atraumatic Skin: no rashes, warm and dry Neurologic: awake; not confused Speech / Cognition: normal speech Psychiatric: A+Ox3, euthymic affect Results & Data Vital Signs (Past 12 Hours) Vital Signs Temp Pulse Pulse Resp BP Pulse Ox 03/17/19 18:55 97 H 24 93 03/17/19 15:54 36.9 C 81 18 125/68 94
[2019-03-18] MEDS: LEVALBUTEROL HCL 1.25 MG/3 ML NEB NEB SCH ×4 (02:00→19:41)
[2019-03-18] MEDS: LEVOTHYROXINE SODIUM 50 MCG TABLET PO SCH (05:36)
[2019-03-18 06:42] LABS: Hematocrit (blood only) 27.8 % (37-47); Hemoglobin 9.1 g/dL (12.0-16.0); Mean Corpuscular Hgb Conc 32.7 g/dL (32-36); Mean Corpuscular Volume 86.6 fL (80-100); Mean Platelet Volume 8.9 fL (7.4-10.4); Platelet Count 141 K/uL (130-400); RDW Coefficient of Variation 17.5 % (11.5-14.5); RDW Standard Deviation 55.1 fL (36.4-46.3); Red Blood Count 3.21 M/uL (4.2-5.4)
[2019-03-18 07:19] LABS: BUN Creatinine Ratio 11.7 (10-20); Calcium 9.1 mg/dl (8.5-10.1); Creatinine Clr Calc Pharmacy 59.9 ml/min; Est GFR (African American) 71.2; Est GFR (Non-African American) 61.4; Potassium 3.4 mmol/L (3.5-5.1)
[2019-03-18] MEDS: dilTIAZem HCL 120 MG CAPCR PO SCH (07:47)
[2019-03-18] MEDS: POTASSIUM CHLORIDE 20 MEQ TABCR PO SCH ×2 (07:47→21:39)
[2019-03-18] MEDS: ENOXAPARIN INJ 40 MG/0.4 ML SYR SQ SCH (07:47)
[2019-03-18] MEDS: GUAIFENESIN/DEXTROM SYRUP 100MG/10MG 5ML UDC PO PRN (07:48)
[2019-03-18] MEDS: SERTRALINE HCL 100 MG TABLET PO SCH (07:48)
[2019-03-18] MEDS: LISINOPRIL 10 MG TAB PO SCH (07:48)
[2019-03-18] MEDS: PANTOprazole 40 MG TAB PO SCH (07:48)
[2019-03-18] MEDS: CEFEPIME 2,000 MG in SYRINGE 7.5 ML IV SCH ×2 (07:52→20:02)
--- NOTE | 2019-03-18 08:36 | XRay Report ---
XR chest 2V routine HISTORY: 73 years-old Female pneumonia acute shortness of breath COMPARISON: Chest radiograph 03/17/2019 TECHNIQUE: PA and lateral views of the chest FINDINGS: Cardiac silhouette is enlarged, unchanged. Pulmonary vascular congestion. Bilateral mixed interstitia l and alveolar opacities are redemonstrated, mildly improved from comparison. No pneumothorax, large pleural effusion or new focal airspace consolidation. Degenerative changes of the shoulders and spine . IMPRESSION: Mildly improved yet persistent mixed bilateral interstitial and alveolar opacities. The above report was generated using voice recognition software. It may contain grammatical, syntax o r spelling errors. Electronically signed by: Luís Cardoso M.D. 03/18/2019 8:34 AM
[2019-03-18] MEDS: methylPREDNISolone 60 MG in SYRINGE 0 ML IV SCH ×2 (10:26→20:01)
--- NOTE | 2019-03-18 13:59 | Hospitalist Progress Note ---
Date of Service March 18, 2019 Assessment & Plan (1) PNA (pneumonia): With cough and shortness of breath developing several days prior to admission CXR as noted with diffuse interstitial and alveolar opacities bilaterally, PNA versus question of chemotherapy-induced pneumonitis Pt has elevated WBC on admission, however recent steroid use--improving BP is borderline hypoTN on admission, however BP medication was recently increased Stable BP on lisinopril 10mg (prior dose) Elevated lactic acid on admission Given pt's immunocompromised state, treating as PNA for now She is much improved today Cefepime/vanco started in the ED, vancomycin was then discontinued due to negative MRSA swab -Levaquin was then added on on 03/17 as she was not improving -Continue IV Solu-Medrol in the case of pneumonitis Follow chest imaging -Awaiting pulmonary consultation (2) Anemia: Hemoglobin improved today at 9.1 Likely low previous due to being dilutional and low baseline related to recent chemo Monitor (3) Breast cancer: Just finished chemo with Taxol and cyclophosphamide [place] [facility] [place] Current plan is b/l mastectomy in March, date is TBD, with radiation afterwards (4) Hypothyroid: continue home meds (5) HTN (hypertension): Pt with lisinopril increased last week from 10mg to 20mg and home BPs have been lower Monitor with 10mg for now--stable (6) GERD (gastroesophageal reflux disease): continue home meds (7) Depression: continue home meds (8) Acute respiratory failure with hypoxia: Requiring oxygen as above for pneumonia pneumonitis -Wean as tolerated Ambulation (9) DVT prophylaxis: Lovenox for DVT proph Disposition-remain hospitalized Subjective Feels her breathing is better today. Still coughing but nonproductive. No chest pain. No abdominal pain or nausea. Review of Systems Review of Systems: All systems reviewed & are unremarkable except as noted in HPI & below Physical Exam Constitutional: WD/WN, vitals as above + obese Eyes: PERRL, conjunctivae normal, anicteric sclerae ENMT: external ear and nose normal, oropharynx normal Neck: trachea midline, no thyromegaly Respiratory: no respiratory distress and no labored breathing Auscultation: + diminished lung sounds (Throughout) and + crackles (And lower and middle lung campa bilaterally) Cardiovascular: RRR, no murmur, no edema Gastrointestinal (Abdomen): normal bowel sounds, soft, nontender, no hepatosplenomegaly Musculoskeletal: Extremities: extremities normal to inspection; no cyanosis and no clubbing Skin: no rashes, warm and dry Neurologic: moves all extremities and awake; no focal motor deficits Psychiatric: A+Ox3, euthymic affect Results & Data Vital Signs (Past 12 Hours) Vital Signs Temp Pulse Pulse Resp BP Pulse Ox 03/18/19 07:14 36.5 C 89 16 125/63 92 03/18/19 06:59 93 H 16 95 03/18/19 02:00 100 H 24 91 Diagnostic Findings XR chest 2V routine HISTORY: 73 years-old Female pneumonia acute shortness of breath COMPARISON: Chest radiograph 03/17/2019 TECHNIQUE: PA and lateral views of the chest FINDINGS: Cardiac silhouette is enlarged, unchanged. Pulmonary vascular congestion. Bilateral mixed interstitial and alveolar opacities are redemonstrated, mildly improved from comparison. No pneumothorax, large pleural effusion or new focal airspace consolidation. Degenerative changes of the shoulders and spine. IMPRESSION: Mildly improved yet persistent mixed bilateral interstitial and alveolar opacities.
[2019-03-18] MEDS ORDERED: OPTIRAY 320 125ml IV PRN (16:22)
--- NOTE | 2019-03-18 16:28 | CT Scan Report ---
CT ANGIOGRAM OF THE CHEST CLINICAL HISTORY: Hypoxemia/breast ca COMPARISON STUDY: Chest x-ray dated 03/16/2019 TECHNIQUE: Following the IV administration of 82 mL of [id number]-[id number], CT angiogram of the thorax was pe rformed from the thoracic inlet to the lung bases utilizing the pulmonary embolus protocol. Images ar e reviewed in the axial, sagittal, and coronal planes. IV contrast was administered without complicat ion. MIP imaging was performed. A dose lowering technique was utilized adhering to the principles of ALARA. CT DOSE: 503.68 mGycm FINDINGS: Visualized portions of the upper abdomen reveal suspected hepatic steatosis and splenomegaly. There are mildly enlarged mediastinal lymph nodes including an 11 mm of carinal lymph node. Hilar lym ph nodes are borderline enlarged. There was no evidence of thoracic aortic dilatation. There were no pulmonary artery filling defects to indicate acute pulmonary embolism. There is a trace left pleural effusion There are bilateral interstitial and groundglass pulmonary opacities. Diagnostic considerations inclu de multifocal pneumonia, drug reaction, or atypical appearance of pulmonary edema. IMPRESSION: 1. No evidence of acute pulmonary embolism 2. Trace left pleural effusion 3. Mild adenopathy 4. Bilateral interstitial and groundglass pulmonary opacities. Likely diagnostic considerations inclu de multifocal pneumonia, drug reaction, or atypical appearance of pulmonary edema. I. Hepatic steatosis and probable splenomegaly Electronically signed by: Lucas Guerrero M.D. 03/18/2019 4:27 PM
[2019-03-18] MEDS: LEVOFLOXACIN/D5W 750 MG/150 ML BAG IV SCH (20:02)
[2019-03-18] MEDS: CHOLECALCIFEROL 1,000 UNITS TAB PO SCH (21:39)
--- NOTE | 2019-03-18 21:49 | Consultation Report ---
DATE OF CONSULTATION: 03/18/2019 PULMONARY MEDICINE CONSULTATION REASON FOR CONSULTATION: Pneumonia in an immunocompromised patient with a history of breast cancer. HISTORY OF PRESENT ILLNESS: A 73-year-old white female who was admitted onto the hospitalist service on 03/14/2019 with a leukocytosis, worsening dyspnea and treated initially for hospital-acquired pneumonia with cefepime/vancomycin started in the Emergency Room and then switched to cefepime only within 24 hours. O2 supplementation was required for the first time. The patient is followed by Dr. Jordan at [facility]. She is postmenopausal and noticed changes in her right breast around September of 2018. On 11/18/2018, diagnostic imaging was done which showed a spiculated mass involving the right breast about 6 cm in total, it was secondary to an adjacent lesion measuring 2 cm. There was skin involvement and dimpling. Lymphadenopathy in the right axilla were felt to be abnormal and biopsies were obtained. Three areas that were biopsied showed invasive ductal carcinoma, intermediate grade, ER/ND positive, HER-2/cindy negative. The Ki-67 staining was high involving the lesions in the right breast and 25% of the left. The patient was presented at tumor board and neoadjuvant chemotherapy given. She has bilateral breast CA with axillary lymph node on the right. TC regimen was chosen. She may have had a reaction to chemotherapy with swelling of the lips and was seen by dermatology on 03/04/2019. She was felt to have suffered from "hand-foot syndrome" from the chemotherapy as her hands did turn purple. She is clinically stage III, T3N1Mx on the right with left breast CA stage II, T2N0M0. Decadron was added to the regimen. The plan was to complete 4 full cycles, treat as needed with Neulasta and surgery to be considered by Dr. Santana. Radiation oncology consultation was to be obtained. She has seen Dr. Shila Jordan from oncology. Her primary care is Dr. Daniels. The patient has been here for 5 days and over the last 12-24 hours has felt some improvement with her breathing with a persistent nonproductive cough without pleuritic pain or hemoptysis, but a degree of night sweats noted. She has a negative smoking history and has not been on home oxygen prior to this hospitalization. PHYSICAL EXAMINATION: CURRENT VITAL SIGNS: Blood pressure 125/63, pulse 101 and regular, respiratory rate 22, temperature 36.5, O2 sat 90% on 4 liters. SKIN: Without lesion. HEENT: Atraumatic, normocephalic. PERRLA. LUNGS: Some fine crackles at the bases with shallow inspiratory effort, no wheezing noted. CARDIAC: Sinus tachycardia, did not appreciate an S3. ABDOMEN: Soft, protuberant. No evidence of hepatosplenomegaly. EXTREMITIES: No pedal edema, clubbing, or cyanosis. NEUROLOGICAL: Cranial nerves II-XII grossly intact. LABORATORY DATA: The patient's white count was 15,000 on admission with H and H 10.3 and 30.5 with hypochromic microcytic indices. The H and H with hydration came down to 8.6 and 26.3. It is now 9.1 and 27.8 but stable. No significant peripheral eosinophilia noted. Platelet count 141,000, potassium 3.4. MRSA screen was negative. The chest x-ray from 03/17/2019 to 03/18/2019 showed improvement, but mixed bilateral interstitial and alveolar opacities noted. We do not have a CAT scan at our disposal, but chest x-ray on 03/13/2019 showed a right basilar opacity with some subsegmental atelectasis, coarse lung markings, would suggest mild interstitial congestive changes without bolivar pulmonary edema. The lung volumes look decreased bilaterally, which would suggest a form of interstitial lung disease underlying. OVERALL ASSESSMENT AND PLAN: A 73-year-old white female with a recent diagnosis of bilateral breast CA, clinical stage III on the right breast and II on the left, who apparently has completed 4 cycles of neoadjuvant chemotherapy and presents now with mixed interstitial alveolar opacities and progressive hypoxemia that is new with previous reaction to chemotherapy with "hand-foot syndrome" pretreated with diphenhydramine and Decadron. We would like to obtain previous CT scans to compare and we will obtain a CT scan of the chest currently to better evaluate. We will hold off on bronchoscopic intervention at this point in time given the improvement over the past 24 hours. An echocardiogram will be ordered as well to evaluate left ventricular function and pulmonary arterial pressures.
[2019-03-19] MEDS: LEVALBUTEROL HCL 1.25 MG/3 ML NEB NEB SCH ×4 (02:08→19:30)
[2019-03-19] MEDS: methylPREDNISolone 60 MG in SYRINGE 0 ML IV SCH ×3 (02:20→22:07)
[2019-03-19] MEDS: LEVOTHYROXINE SODIUM 50 MCG TABLET PO SCH (06:43)
[2019-03-19] MEDS: CEFEPIME 2,000 MG in SYRINGE 7.5 ML IV SCH ×2 (07:40→22:06)
[2019-03-19] MEDS: ENOXAPARIN INJ 40 MG/0.4 ML SYR SQ SCH (07:41)
[2019-03-19] MEDS: LISINOPRIL 10 MG TAB PO SCH (07:45)
[2019-03-19] MEDS: dilTIAZem HCL 120 MG CAPCR PO SCH (07:45)
[2019-03-19] MEDS: SERTRALINE HCL 100 MG TABLET PO SCH (07:45)
[2019-03-19] MEDS: PANTOprazole 40 MG TAB PO SCH (07:45)
[2019-03-19] MEDS: POTASSIUM CHLORIDE 20 MEQ TABCR PO SCH ×2 (07:46→22:06)
[2019-03-19 10:43] LABS: Basophils # (auto) 0.01 K/uL (0-0.2); Basophils % (auto) 0.1 %; Hematocrit (blood only) 27.5 % (37-47); Hemoglobin 8.8 g/dL (12.0-16.0); Immature Granulocytes # (auto) 0.12 K/uL (0.00-0.02); Immature Granulocytes % (auto) 0.9 %; Lymphocytes % (auto) 2.9 %; Mean Corpuscular Volume 88.1 fL (80-100); Mean Platelet Volume 9.9 fL (7.4-10.4); Monocytes # (auto) 0.35 K/uL (0.11-0.59); Monocytes % (auto) 2.5 %; Neutrophils # (auto) 12.89 K/uL (1.4-6.5); Neutrophils % (auto) 93.6 %; Platelet Count 175 K/uL (130-400); RDW Coefficient of Variation 17.9 % (11.5-14.5); Red Blood Count 3.12 M/uL (4.2-5.4); White Blood Count 13.77 K/uL (4.8-10.8)
[2019-03-19 11:12] LABS: BUN Creatinine Ratio 15.7 (10-20); Calcium 9.6 mg/dl (8.5-10.1); Creatinine Clr Calc Pharmacy 47.7 ml/min; Est GFR (Non-African American) 47.5
[2019-03-19] MEDS ORDERED: CARBOHYDRATES FOR HYPOGLYCEMIA PO PRN (11:16)
[2019-03-19] MEDS ORDERED: GLUCAGON FOR INJ 1 MG VIAL SQ PRN (11:16)
[2019-03-19] MEDS ORDERED: GLUCOSE 40% GEL 15 GM TUBE PO PRN (11:16)
[2019-03-19] MEDS ORDERED: DEXTROSE 50% 50 ML SYRINGE IV PRN (11:16)
[2019-03-19] MEDS ORDERED: GLUCOSE 10 TABS/TUBE PO PRN (11:16)
[2019-03-19] MEDS ORDERED: SODIUM CHLORIDE 0.9% 1000ML 1,000 ML IV ONE (11:20)
[2019-03-19] MEDS ORDERED: INSULIN GLARGINE SOLOSTAR 100 UNITS/ML 3 ML PEN SC SCH ×2 (11:30→19:45)
[2019-03-19] MEDS: INSULIN ASPART 100 UNITS/ML 3 ML PEN SC SCH ×4 (11:50→22:11)
--- NOTE | 2019-03-19 12:22 | Hospitalist Progress Note ---
Date of Service March 19, 2019 Assessment & Plan (1) PNA (pneumonia): With cough and shortness of breath developing several days prior to admission CXR as noted with diffuse interstitial and alveolar opacities bilaterally PNA versus question of chemotherapy-induced pneumonitis Pt has elevated WBC on admission, however recent steroid use--improving BP is borderline hypoTN on admission, however BP medication was recently increased Stable BP on lisinopril 10mg (prior dose) Elevated lactic acid on admission Given pt's immunocompromised state, treating as PNA for now Continues to be slightly improved today after starting steroids on 03/17 Cefepime/vanco started in the ED, vancomycin was then discontinued due to negative MRSA swab -Levaquin was then added on on 03/17 as she was not improving -Continue IV Solu-Medrol in the case of pneumonitis and taper down to 60 mg every 12 today due to severe hyperglycemia Follow chest imaging Echocardiogram with mild LVH, poorly visualized right ventricle, preserved LVEF at 55-60% -Appreciate pulmonary consultation-questions Taxol-induced pneumonitis but cannot be sure if this is truly the cause of her symptoms. Pulmonology also questions asymmetric pulmonary edema. I doubt pulmonary edema as she has a normal echocardiogram here and never had any difficulty. In fact, she is dehydrated based on the fact that she has an anion gap metabolic acidosis with hyperglycemia here. Gave her IV fluids for that. -No need for bronchoscopy at this time (2) Anemia: Hemoglobin table at 9.1 which is around her baseline after review of her blood work from several weeks ago at [facility] -Is likely antineoplastic related anemia -Follow CBC periodically (3) Breast cancer: Just finished chemo with Taxol and cyclophosphamide Follows with Dr. Jordan at [facility] for oncology-I will contact her oncology overnight caregiver at the request at phone number [phone] Current plan is b/l mastectomy in March, date is TBD, with radiation afterwards (4) Hypothyroid: continue home levothyroxine 50 mg daily TSH was normal at 3 in the last 6 months (5) HTN (hypertension): Pt with lisinopril increased last week from 10mg to 20mg and home BPs have been lower Monitor with 10mg for now--stable -Continue diltiazem 120 mg p.o. once daily (6) GERD (gastroesophageal reflux disease): continue PPI (7) Depression: continue home meds (8) Acute respiratory failure with hypoxia: Requiring oxygen as above for pneumonia or chemotherapy-induced pneumonitis -Wean as tolerated-continues on 4 L Ambulation encouraged today -Flutter valve (9) Prediabetes: Hemoglobin A1c 6.1% back in the fall 2018 With hyperglycemia here secondary to corticosteroid use -Checking hemoglobin A1c today Treatment for hyperglycemia as below (10) Hyperglycemia: With blood sugars now in the 2 and 300 secondary corticosteroids Patient reports sugars have been in the 200s with taking steroids with her chemotherapy in the last couple of months. Developing metabolic acidosis with anion gap as below -Start Lantus 10 units once daily now with sliding scale NovoLog Accu-Cheks added -Change to diabetic diet Will follow -Will taper down IV steroids (11) Metabolic acidosis: Metabolic acidosis with bicarb of 18 and anion gap 12 today Secondary to hypoglycemia and dehydration -Bolused with IV fluids normal saline x1 L now -Treated with insulin as above (12) DVT prophylaxis: Lovenox for DVT proph Disposition-remain hospitalized Subjective Patient feeling improved today, a little less short of breath. Denies chest pain. She is not coughing up anything. She is afebrile. She has been ambulating around the room without worsening dyspnea. Her blood sugars have been very high today secondary to corticosteroids but she does report that they have been in the 200s recently when she has blood work due to taking steroids for her hand-foot syndrome. Review of Systems Review of Systems: All systems reviewed & are unremarkable except as noted in HPI & below Physical Exam Constitutional: WD/WN, vitals as above + obese Eyes: PERRL, conjunctivae normal, anicteric sclerae ENMT: external ear and nose normal, oropharynx normal Neck: trachea midline, no thyromegaly Respiratory: no respiratory distress and no labored breathing Auscultation: + crackles (At right base only, otherwise much clearer than previous); no diminished lung sounds, no rhonchi and no wheezes Cardiovascular: RRR, no murmur, no edema Gastrointestinal (Abdomen): normal bowel sounds, soft, nontender, no hepatosplenomegaly Musculoskeletal: Extremities: extremities normal to inspection; no cyanosis and no clubbing Skin: no rashes, warm and dry Neurologic: moves all extremities and awake; no focal motor deficits Psychiatric: A+Ox3, euthymic affect Results & Data Vital Signs (Past 12 Hours) Vital Signs Temp Pulse Pulse Resp BP Pulse Ox 05/23/19 07:36 36.7 C 99 H 18 109/61 96 03/19/19 06:54 102 H 20 90 03/19/19 02:11 97 H 18 90 Laboratory Results 03/20/19 03/20/19 03/19/19 Range/Units 05: 01:02 20:41 WBC (4.8-10.8) K/uL RBC (4.2-5.4) M/uL Hgb (12.0-16.0) g/dL Hct (37-47) % MCV (80-100) fL MCH (25-34) pg MCHC (32-36) g/dL RDW Std Deviation (36.4-46.3) fL RDW Coeff of Catrachito (11.5-14.5) % Plt Count (130-400) K/uL MPV (7.4-10.4) fL Immature Gran % (Auto) % Neut % (Auto) % Lymph % (Auto) % Bosque % (Auto) % Eos % (Auto) % Baso % (Auto) % Immature Gran # (Auto) (0.00-0.02) K/uL Neut # (Auto) (1.4-6.5) K/uL Lymph # (Auto) (1.2-3.4) K/uL Bosque # (Auto) (0.11-0.59) K/uL Eos # (Auto) (0-0.5) K/uL Baso # (Auto) (0-0.2) K/uL Sodium 141 (136-145) mmol/L Potassium 5.0 D (3.5-5.1) mmol/L Chloride 110 H (98-107) mmol/L Carbon Dioxide 25 (21-32) mmol/L Anion Gap 6.0 (3-11) BUN 21 H (7-18) mg/dl Creatinine 0.92 (0.6-1.2) mg/dl Est Cr Clr Drug Dosing 59.7 ml/min Est GFR ( Amer) 72.1 Est GFR (Non-Af Amer) 62.2 BUN/Creatinine Ratio 22.7 H (10-20) Glucose 227 H (70-99) mg/dl POC Glucose 218 H 356 H* (70-99) Estimat Average Glucose mg/dl Hemoglobin A1c (4.5-5.6) % Calcium 9.3 (8.5-10.1) mg/dl Beta-Hydroxybutyric Acd (0.2-2.81) mg/dl 03/19/19 03/19/19 03/19/19 Range/Units 16:56 16:55 14:36 WBC (4.8-10.8) K/uL RBC (4.2-5.4) M/uL Hgb (12.0-16.0) g/dL Hct (37-47) % MCV (80-100) fL MCH (25-34) pg MCHC (32-36) g/dL RDW Std Deviation (36.4-46.3) fL RDW Coeff of Catrachito (11.5-14.5) % Plt Count (130-400) K/uL MPV (7.4-10.4) fL Immature Gran % (Auto) % Neut % (Auto) % Lymph % (Auto) % Bosque % (Auto) % Eos % (Auto) % Baso % (Auto) % Immature Gran # (Auto) (0.00-0.02) K/uL Neut # (Auto) (1.4-6.5) K/uL Lymph # (Auto) (1.2-3.4) K/uL Bosque # (Auto) (0.11-0.59) K/uL Eos # (Auto) (0-0.5) K/uL Baso # (Auto) (0-0.2) K/uL Sodium (136-145) mmol/L Potassium (3.5-5.1) mmol/L Chloride (98-107) mmol/L Carbon Dioxide (21-32) mmol/L Anion Gap (3-11) BUN (7-18) mg/dl Creatinine (0.6-1.2) mg/dl Est Cr Clr Drug Dosing ml/min Est GFR ( Amer) Est GFR (Non-Af Amer) BUN/Creatinine Ratio (10-20) Glucose (70-99) mg/dl POC Glucose 317 H* 302 H* 245 H (70-99) Estimat Average Glucose mg/dl Hemoglobin A1c (4.5-5.6) % Calcium (8.5-10.1) mg/dl Beta-Hydroxybutyric Acd (0.2-2.81) mg/dl 03/19/19 03/19/19 03/19/19 Range/Units 11:15 11:14 10:31 WBC (4.8-10.8) K/uL RBC (4.2-5.4) M/uL Hgb (12.0-16.0) g/dL Hct (37-47) % MCV (80-100) fL MCH (25-34) pg MCHC (32-36) g/dL RDW Std Deviation (36.4-46.3) fL RDW Coeff of Catrachito (11.5-14.5) % Plt Count (130-400) K/uL MPV (7.4-10.4) fL Immature Gran % (Auto) % Neut % (Auto) % Lymph % (Auto) % Bosque % (Auto) % Eos % (Auto) % Baso % (Auto) % Immature Gran # (Auto) (0.00-0.02) K/uL Neut # (Auto) (1.4-6.5) K/uL Lymph # (Auto) (1.2-3.4) K/uL Bosque # (Auto) (0.11-0.59) K/uL Eos # (Auto) (0-0.5) K/uL Baso # (Auto) (0-0.2) K/uL Sodium (136-145) mmol/L Potassium (3.5-5.1) mmol/L Chloride (98-107) mmol/L Carbon Dioxide (21-32) mmol/L Anion Gap (3-11) BUN (7-18) mg/dl Creatinine (0.6-1.2) mg/dl Est Cr Clr Drug Dosing ml/min Est GFR ( Amer) Est GFR (Non-Af Amer) BUN/Creatinine Ratio (10-20) Glucose (70-99) mg/dl POC Glucose 332 H* 331 H* (70-99) Estimat Average Glucose 137 mg/dl Hemoglobin A1c 6.4 H (4.5-5.6) % Calcium (8.5-10.1) mg/dl Beta-Hydroxybutyric Acd (0.2-2.81) mg/dl 03/19/19 03/19/19 Range/Units 10:31 10:31 WBC 13.77 H (4.8-10.8) K/uL RBC 3.12 L (4.2-5.4) M/uL Hgb 8.8 L (12.0-16.0) g/dL Hct 27.5 L (37-47) % MCV 88.1 (80-100) fL MCH 28.2 (25-34) pg MCHC 32.0 (32-36) g/dL RDW Std Deviation 57.0 H (36.4-46.3) fL RDW Coeff of Catrachito 17.9 H (11.5-14.5) % Plt Count 175 (130-400) K/uL MPV 9.9 (7.4-10.4) fL Immature Gran % (Auto) 0.9 % Neut % (Auto) 93.6 % Lymph % (Auto) 2.9 % Bosque % (Auto) 2.5 % Eos % (Auto) 0.0 % Baso % (Auto) 0.1 % Immature Gran # (Auto) 0.12 H (0.00-0.02) K/uL Neut # (Auto) 12.89 H (1.4-6.5) K/uL Lymph # (Auto) 0.40 L (1.2-3.4) K/uL Bosque # (Auto) 0.35 (0.11-0.59) K/uL Eos # (Auto) 0.00 (0-0.5) K/uL Baso # (Auto) 0.01 (0-0.2) K/uL Sodium 139 (136-145) mmol/L Potassium 4.3 D (3.5-5.1) mmol/L Chloride 110 H (98-107) mmol/L Carbon Dioxide 18 L (21-32) mmol/L Anion Gap 12.0 H (3-11) BUN 18 D (7-18) mg/dl Creatinine 1.15 (0.6-1.2) mg/dl Est Cr Clr Drug Dosing 47.7 ml/min Est GFR ( Amer) 55.0 Est GFR (Non-Af Amer) 47.5 BUN/Creatinine Ratio 15.7 (10-20) Glucose 316 H* (70-99) mg/dl POC Glucose (70-99) Estimat Average Glucose mg/dl Hemoglobin A1c (4.5-5.6) % Calcium 9.6 (8.5-10.1) mg/dl Beta-Hydroxybutyric Acd 0.86 (0.2-2.81) mg/dl
[2019-03-19 12:59] LABS: Estimated Average Glucose 137 mg/dl
[2019-03-19 13:50] LABS: Potassium 4.3 mmol/L (3.5-5.1)
--- NOTE | 2019-03-19 14:13 | Progress Note ---
DATE: 03/19/2019 PULMONARY MEDICINE PROGRESS NOTE Chart reviewed, the patient examined. SUBJECTIVE: The patient feels better today, less dyspneic with even minimal exertion. Her cough is less violent and remains nonproductive. No chest discomfort noted. OBJECTIVE: CURRENT VITAL SIGNS: Temperature 36.7, pulse 90 and regular, respiratory rate 18, blood pressure 109/61, O2 sat 96% on current O2 supplementation at 4 liters. SKIN: Without lesion. HEENT: Alopecia from chemotherapy. NECK: Neck veins are not distended at 45 degrees. No adenopathy. LUNGS: Some fine rales audible bilaterally, left greater than right. CARDIAC: Regular rate and rhythm. I do not appreciate a gallop. ABDOMEN: Soft, protuberant. EXTREMITIES: No significant pedal edema, clubbing or cyanosis. NEUROLOGIC: Intact. No lateralizing signs. LABORATORY DATA: CT angiogram done yesterday at my request showed no evidence of acute pulmonary thromboembolic disease, trace left pleural effusion noted with mild adenopathy and bilateral interstitial and ground-glass pulmonary opacities with diagnostic considerations including multifocal pneumonia/drug reaction or atypical appearance of pulmonary edema, mild splenomegaly suggested. White count 13,700, H and H 8.8 and 27.5 down from 9.1 and 27.8, platelet count 175,000. Glucose levels in the 300 range. BUN 18, creatinine 1.1. OVERALL ASSESSMENT: A 73-year-old with recent diagnosis of bilateral breast CA, clinical stage III involving the right breast and 2 on the left, who completed in the first week of February, the 4th cycle of neoadjuvant chemotherapy (TC), suspect Taxol and carboplatin and await full records from [facility]. The patient has had significant reaction to the chemotherapy in the form of "hand-foot syndrome" and has to be pretreated with diphenhydramine and Decadron. My sense is that the findings on x-ray represent perhaps Taxol -induced pulmonary toxicity, although I cannot be sure of that. She is on appropriate antibiotics and with IV Solu-Medrol and O2 supplementation. Certainly, this could represent atypical pulmonary edema, but I suspect it is more of an inflammatory infectious etiology. She seems to be slowly progressing and getting better, and at this point in time, would continue once again what we are doing and continue to follow and wait for radiographic and clinical improvement involving her chest exam and we will hold off on any diagnostic considerations i.e., the bronchoscopy with transbronchial biopsy or a video-assisted thorascopic biopsy.
[2019-03-19] MEDS ORDERED: NovoLIN-R INSULIN PER UNIT CHARGE IV STA (17:02)
[2019-03-19] MEDS ORDERED: INSULIN HUMAN REGULAR IV BOLUS 5 UNITS in SYRINGE 0 ML IV STA ×2 (17:10→17:21)
[2019-03-19] MEDS: LEVOFLOXACIN/D5W 750 MG/150 ML BAG IV SCH (18:40)
[2019-03-19] MEDS: CHOLECALCIFEROL 1,000 UNITS TAB PO SCH (22:07)
[2019-03-19] MEDS ORDERED: INSULIN ASPART 100 UNITS/ML 3 ML PEN SC ONE (22:35)
[2019-03-20] MEDS: LEVALBUTEROL HCL 1.25 MG/3 ML NEB NEB SCH ×4 (01:47→19:10)
[2019-03-20 06:09] LABS: BUN Creatinine Ratio 22.7 (10-20); Calcium 9.3 mg/dl (8.5-10.1); Creatinine Clr Calc Pharmacy 59.7 ml/min; Est GFR (African American) 72.1; Est GFR (Non-African American) 62.2
[2019-03-20] MEDS: LEVOTHYROXINE SODIUM 50 MCG TABLET PO SCH (06:11)
[2019-03-20] MEDS: ACETAMINOPHEN 325 MG TAB PO PRN (06:13)
[2019-03-20] MEDS: SERTRALINE HCL 100 MG TABLET PO SCH (08:06)
[2019-03-20] MEDS: FUROSEMIDE 20 MG TAB PO SCH (08:06)
[2019-03-20] MEDS: ENOXAPARIN INJ 40 MG/0.4 ML SYR SQ SCH (08:06)
[2019-03-20] MEDS: dilTIAZem HCL 120 MG CAPCR PO SCH (08:06)
[2019-03-20] MEDS: LISINOPRIL 10 MG TAB PO SCH (08:06)
[2019-03-20] MEDS: PANTOprazole 40 MG TAB PO SCH (08:06)
[2019-03-20] MEDS: INSULIN ASPART 100 UNITS/ML 3 ML PEN SC SCH ×4 (08:11→21:49)
[2019-03-20] MEDS: CEFEPIME 2,000 MG in SYRINGE 7.5 ML IV SCH (08:15)
[2019-03-20] MEDS ORDERED: INSULIN GLARGINE SOLOSTAR 100 UNITS/ML 3 ML PEN SC SCH (09:00)
[2019-03-20] MEDS ORDERED: POTASSIUM CHLORIDE 20 MEQ TABCR PO SCH (09:00)
[2019-03-20] MEDS: methylPREDNISolone 60 MG in SYRINGE 0 ML IV SCH ×2 (10:04→21:54)
--- NOTE | 2019-03-20 14:55 | Infectious Disease Consult ---
Date of Consultation March 20, 2019 Assessment & Plan (1) Interstitial pneumonitis: 73-year-old female with breast cancer on chemotherapy now with bilateral interstitial pneumonitis. Bacterial infection appears less likely given normal procalcitonin level. Think that drug reaction appears more likely. Would give consideration to transition to oral antibiotics in the next day or so if continues to improve. Will follow. History of Present Illness Reason for Consultation: Interstitial pneumonitis, immunocompromise, empiric therapy Attending Physician: Karissa Thomas MD History of Present Illness 73-year-old female with breast cancer diagnosed earlier this year, undergoing chemotherapy. She reports that after last round of chemotherapy, she developed lip swelling and ulceration with inability to eat consistent with drug reaction. She was then admitted on the with several days of progressively worsening shortness of breath, dry cough, and fever to 100 degrees. She is found to have elevated white blood cell count but is been on steroids, and also mildly elevated lactic acid. Chest x-ray suggested bilateral pneumonitis, with differential of pneumonia versus drug reaction. Procalcitonin in the normal range. She was started empirically on vancomycin and cefepime, vancomycin discontinued with negative MRSA smear. Also receiving increase in steroids. Has been feeling better the last few days, has been afebrile, decreasing shortness of breath. Offers no other new complaints. No significant travel or exposure history otherwise. Allergies Allergy/AdvReac Type Severity Reaction Status Date / Time Penicillins Allergy Intermediate RASH Unverified 03/13/19 11:42 shellfish derived Allergy Mild HIVES RASH Unverified 03/13/19 11:42 Home Medications Home Medications Medication Instructions Recorded Confirmed Type acetaminophen [Tylenol Extra 500 mg PO Q6H PRN 03/13/19 03/13/19 History Strength] cholecalciferol (vitamin D3) 2,000 unit PO HS 03/13/19 03/13/19 History [Vitamin D3] cyclophosphamide 0 mg IV UD 03/13/19 03/13/19 History dexamethasone 8 mg PO UD 03/13/19 03/13/19 History diltiazem HCl [Cartia XT] 120 mg PO QAM 03/13/19 03/13/19 History levothyroxine 50 mcg PO QAM 03/13/19 03/13/19 History lisinopril 10 mg PO QAM 03/13/19 03/13/19 History omeprazole 10 mg PO QAM 03/13/19 03/13/19 History paclitaxel 0 mg IV UD 03/13/19 03/13/19 History sertraline 100 mg PO QAM 03/13/19 03/13/19 History Patient History Medical History Depression GERD (gastroesophageal reflux disease) HTN (hypertension) Hypothyroid Breast cancer PNA (pneumonia) No significant past surgical history Family History Father Stroke Social History Preferred Language: Hebrew Communication Ability: Effective 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 Beliefs That Will Affect Care: None Current Living Situation: Spouse Other Information That Helps Us Care for You: No Feels Safe at Home: Yes Safety Concerns: Feels Safe At This Time Smoking Status: Never smoker Do You Dip or Chew Tobacco: No Second Hand Exposure: No Tobacco Cessation Education Requested by Patient: No Hx Alcohol Use: Yes (occasional prior to cancer, dx but none now) Hx Substance Use: No Review of Systems Review of Systems: All systems reviewed & are unremarkable except as noted in HPI & below Physical Exam Constitutional: WD/WN, vitals as above comfortable; no acute distress Eyes: PERRL, conjunctivae normal, anicteric sclerae ENMT: external ear and nose normal, oropharynx normal Neck: trachea midline, no thyromegaly neck nontender Respiratory: normal respiratory effort, lungs clear to auscultation normal percussion; does not use accessory muscles Cardiovascular: Rate/Rhythm: regular rate and regular rhythm Heart Sounds: normal S1 and normal S2; no gallop, no murmur and no cardiac rub Vessels: normal peripheral pulses; no JVD Gastrointestinal (Abdomen): normal bowel sounds, soft, nontender, no hepatosplenomegaly Musculoskeletal: no cyanosis or clubbing, extremities motor strength 5/5 Spine: thoracic spine normal to inspection and lumbar spine normal to inspection; no cervical spinal tenderness Skin: no rashes, warm and dry normal turgor; no lesions Neurologic: patellar DTR's 2+ bilat, sensation intact no focal motor deficits Psychiatric: A+Ox3, euthymic affect Orientation: cooperative Lymphatic: no cervical or axillary lymphadenopathy no inguinal lymphadenopathy Results & Data Vital Signs (Past 12 Hours) Vital Signs Temp Pulse Resp BP Pulse Ox 03/20/19 14:27 92 H 16 98 03/20/19 06:57 36.4 C L 90 20 150/73 H 98 03/20/19 06:56 74 18 96 Laboratory Results [facility] 03/20/19 05:24 Sodium 141 Potassium 5.0 D Chloride 110 H Carbon Dioxide 25 BUN 21 H Creatinine 0.92 Glucose 227 H Calcium 9.[address] ANGIOGRAM OF THE CHEST CLINICAL HISTORY: Hypoxemia/breast ca COMPARISON STUDY: Chest x-ray dated 03/16/2019 TECHNIQUE: Following the IV administration of 82 mL of [id number]-[id number], CT angiogram of the thorax was performed from the thoracic inlet to the lung bases utilizing the pulmonary embolus protocol. Images are reviewed in the axial, sagittal, and coronal planes. IV contrast was administered without complication. MIP imaging was performed. A dose lowering technique was utilized adhering to the principles of ALARA. CT DOSE: 503.68 mGycm FINDINGS: Visualized portions of the upper abdomen reveal suspected hepatic steatosis and splenomegaly. There are mildly enlarged mediastinal lymph nodes including an 11 mm of carinal lymph node. Hilar lymph nodes are borderline enlarged. There was no evidence of thoracic aortic dilatation. There were no pulmonary artery filling defects to indicate acute pulmonary embolism. There is a trace left pleural effusion There are bilateral interstitial and groundglass pulmonary opacities. Diagnostic considerations include multifocal pneumonia, drug reaction, or atypical appearance of pulmonary edema. IMPRESSION: 1. No evidence of acute pulmonary embolism 2. Trace left pleural effusion 3. Mild adenopathy 4. Bilateral interstitial and groundglass pulmonary opacities. Likely diagnostic considerations include multifocal pneumonia, drug reaction, or atypical appearance of pulmonary edema. I. Hepatic steatosis and probable splenomegaly Electronically signed by: Lucas Guerrero M.D. 03/18/2019 4:27 PM Dictated: 03/18/19 [id number]
--- NOTE | 2019-03-20 16:42 | Progress Note ---
DATE: 03/20/2019 PULMONARY MEDICINE PROGRESS NOTE Chart reviewed, the patient examined. SUBJECTIVE: I have had the opportunity to speak with Dr. Rashid Han from infectious disease consultation about this patient and spoke with her oncologist at [facility], Dr. Jordan. Dr. Han and I feel it is unlikely that this represents an invasive Aspergillus infection, given normal procalcitonin level and the fact that the patient seems to have clinically responded to above-mentioned therapy. I have sent serologies off in addition and will not empirically start on IV voriconazole after discussing the case with Dr. Han. Dr. Jordan is aware of the situation and I think most people believe this is a drug-induced pneumonitis, a well-reported entity especially from Taxol preparations (paclitaxel). Nevertheless, if we reach a plateau phase with our clinical course, the patient may very well require a video-assisted thorascopic surgery with biopsy for more definitive diagnosis with culture of the lung tissue and washings as well to be considered.Pneumocystis jirovecii much less likely w/o classic radiographic appearance. MTDD
--- NOTE | 2019-03-20 17:17 | Progress Note ---
DATE: 03/20/2019 Chart reviewed, the patient is examined. SUBJECTIVE: The patient still seems somewhat breathless when she exerts herself, but she has only had mild dry nonproductive cough without pleuritic pain or chest discomfort. No hemoptysis noted. She has been afebrile and overall feeling better over the last several days. She remains on IV Solu-Medrol 60 mg q. 12 hours, but because of severe hyperglycemia, the dose has been titrated by Dr. Thomas. Echocardiogram had showed mild LVH, but normal LVEF. Levaquin was added to her regimen of 03/17/2019 after she has been on cefepime and vancomycin since initial hospitalization. She is anemic, although her hemoglobin is stable at 9.1. She just finished chemotherapy with Dr. Jordan with neoadjuvant chemotherapy in the form of Taxol and (?) carboplatin versus cyclophosphamide being utilized. She is scheduled for a mastectomy in March if all goes according to plan and with postoperative radiation. She was given some hydration yesterday because of mild metabolic acidosis with an anion gap, all secondary to hyperglycemia from her steroid therapy. 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 PHYSICAL EXAMINATION: VITAL SIGNS: Blood pressure 150/73, pulse 90 and regular, respiratory rate 20, temperature 36.4, O2 sat 98% on 4 liters. SKIN: Without lesion. HEENT: Atraumatic, normocephalic. PERRLA. LUNGS: Some fine rales at both bases. CARDIAC: Regular rate and rhythm. I do not appreciate a gallop. ABDOMEN: Soft, protuberant. EXTREMITIES: No pedal edema, clubbing or cyanosis. NEUROLOGIC: Intact. No lateralizing signs. LABORATORY DATA: White count yesterday 13,700. H and H 8.8 and 27.5, the day before 9.1 and 27.8. BUN 21, creatinine 0.9, glucose levels have come down in the 260 range. CTA on 03/18/2019 once again was reviewed, compared to chest x-ray on 03/16/2019 showed no evidence of pulmonary thromboembolic disease, trace left pleural effusion, mild adenopathy with bilateral interstitial and ground-glass opacities noted. OVERALL ASSESSMENT: A 73-year-old with bilateral breast cancer, completed full course of neoadjuvant chemotherapy, possibly with a drug-induced lung disease versus an infectious multifocal etiology, seems to be slowly improving. I will speak with Dr. Jordan today, but at this point, I would continue to slowly taper the steroids because of her hyperglycemia and get her to an oral dose tomorrow and mobilize the patient. At this point, I do not believe a transbronchial biopsy or even a video-assisted thorascopic biopsy is indicated, but if we plateaued without improvement, that may very well be the case and would reassess the early part of this coming week.
--- NOTE | 2019-03-20 17:57 | Hospitalist Progress Note ---
Date of Service March 20, 2019 Assessment & Plan (1) PNA (pneumonia): With cough and shortness of breath developing several days prior to admission, no fevers CXR as noted with diffuse interstitial and alveolar opacities bilaterally CT angiogram of chest on 03/19 with no PE, with trace left pleural effusion, mild adenopathy, and bilateral interstitial and groundglass pulmonary opacities. Radiologist interpretation is: "Likely diagnostic considerations include multifocal pneumonia, drug reaction, or atypical appearance of pulmonary edema." PNA versus question of chemotherapy-induced pneumonitis from Taxol Pt has elevated WBC on admission, however recent steroid use--improving Chest x-ray findings not secondary to pulmonary edema most likely as with echocardiogram with mild LVH, poorly visualized right ventricle, preserved LVEF at 55-60% Elevated lactic acid on admission, procalcitonin negative Given pt's immunocompromised state, treating as PNA for now, however seems to be most improved with starting steroids on 03/17 Infectious disease consultation also suspects pneumonitis Consider fungal infection, PCP pneumonia but not likely Cefepime/vanco started in the ED, vancomycin was then discontinued due to negative MRSA swab -Levaquin was then added on on 03/17 as she was not improving -ID recommends likely switching to oral antibiotics and finishing a course in the near future -Continue IV Solu-Medrol 60 mg every 12 hours in the case of pneumonitis Follow chest imaging -Appreciate pulmonary consultation-questions Taxol-induced pneumonitis but cannot be sure if this is truly the cause of her symptoms. If not continuing to improve in the next few days, would consider VATS or bronchoscopy for lung biopsy and lavage (2) Anemia: Hemoglobin table at 9.1 which is around her baseline after review of her blood work from several weeks ago at [place] -Is likely antineoplastic related anemia -Follow CBC periodically (3) Breast cancer: Just finished chemo with Taxol and cyclophosphamide Follows with Dr. Jordan at [facility] for oncology-I spoke with her on the phone today-phone number [phone]-she questions if PCP or fungal pneumonia as well, but agrees that it could very well be Taxol-induced pneumonitis Current plan is b/l mastectomy in March, date is TBD, with radiation afterwards (4) Hypothyroid: continue home levothyroxine 50 mg daily TSH was normal at 3 in the last 6 months (5) HTN (hypertension): Pt with lisinopril increased last week from 10mg to 20mg and home BPs have been lower Monitor with 10mg for now--stable -Continue diltiazem 120 mg p.o. once daily (6) GERD (gastroesophageal reflux disease): continue PPI (7) Depression: Stable -Continue home sertraline 100 mg daily (8) Acute respiratory failure with hypoxia: Requiring oxygen as above for pneumonia or chemotherapy-induced pneumonitis -Wean as tolerated-continues on 4 L Ambulation encouraged today -Flutter valve (9) Prediabetes: Hemoglobin A1c 6.1% back in the fall 2018 and is now only 6.4% With severe hyperglycemia here secondary to corticosteroid use -Treating for hyperglycemia as below (10) Hyperglycemia: With blood sugars persistently in the 200s and 300s secondary to corticosteroids Patient reports sugars have been in the 200s with taking steroids with her chemotherapy in the last couple of months. -Increase Lantus to 25 units twice daily -Tighten down NovoLog correction factor and carb ratio today -Continue Accu-Cheks -Continue diabetic diet (11) Metabolic acidosis: Metabolic acidosis with bicarb of 18 and anion gap 12 associated with hyperglycemia Treated with IV fluids on 03/19 -Now resolved -Follow BMP -Continue to treat hypoglycemia (12) DVT prophylaxis: Lovenox for DVT proph Disposition-remain hospitalized Subjective Feeling much improved today, less short of breath. She is ambulating around the room. Denies diarrhea or constipation. Remains afebrile. No chest pain. Review of Systems Review of Systems: All systems reviewed & are unremarkable except as noted in HPI & below Physical Exam Constitutional: WD/WN, vitals as above + obese Eyes: PERRL, conjunctivae normal, anicteric sclerae ENMT: external ear and nose normal, oropharynx normal Neck: trachea midline, no thyromegaly Respiratory: no respiratory distress and no labored breathing Auscultation: + crackles (At right base only, otherwise much clearer than previous); no diminished lung sounds, no rhonchi and no wheezes Cardiovascular: RRR, no murmur, no edema Gastrointestinal (Abdomen): normal bowel sounds, soft, nontender, no hepatosplenomegaly Musculoskeletal: Extremities: extremities normal to inspection; no cyanosis and no clubbing Skin: no rashes, warm and dry Neurologic: moves all extremities and awake; no focal motor deficits Psychiatric: A+Ox3, euthymic affect Results & Data Vital Signs (Past 12 Hours) Vital Signs Temp Pulse Resp BP Pulse Ox 03/20/19 15:04 36.4 C L 97 H 20 139/66 96 03/20/19 14:27 92 H 16 98 03/20/19 06:57 36.4 C L 90 20 150/73 H 98 03/20/19 06:56 74 18 96 Laboratory Results 03/20/19 03/20/19 03/20/19 Range/Units 19:53 16:51 16:20 Sodium (136-145) mmol/L Potassium (3.5-5.1) mmol/L Chloride (98-107) mmol/L Carbon Dioxide (21-32) mmol/L Anion Gap (3-11) BUN (7-18) mg/dl Creatinine (0.6-1.2) mg/dl Est Cr Clr Drug Dosing ml/min Est GFR ( Amer) Est GFR (Non-Af Amer) BUN/Creatinine Ratio (10-20) Glucose (70-99) mg/dl POC Glucose 306 H* 245 H (70-99) Calcium (8.5-10.1) mg/dl L.pneumophila IgM Ab Urine Legionella Ag Pending Mycoplasma pneumon IgG Mycoplasma pneumon IgM Saccharo. viridis Ab T. candidus Antibody T. sacchari Antibody T. vulgaris Antibody Alternaria tenuis IgG Aspergillus flavus Ab Aspergill fumigatus Ab A. galactomannan Ag A. galactomannan Ag Idx Aspergillus niger Ab Aureobasidium pullulans Cladosporium herbar IgG Penicillium notatum IgG Phoma species IgG Ab Trichoderma viride IgG S. rectivirgula Beta-(1,3)-D-Glucan B-(1,3)-D-Glucan Intrp 03/20/19 03/20/19 03/20/19 Range/Units 14:18 14:18 11:36 Sodium (136-145) mmol/L Potassium (3.5-5.1) mmol/L Chloride (98-107) mmol/L Carbon Dioxide (21-32) mmol/L Anion Gap (3-11) BUN (7-18) mg/dl Creatinine (0.6-1.2) mg/dl Est Cr Clr Drug Dosing ml/min Est GFR ( Amer) Est GFR (Non-Af Amer) BUN/Creatinine Ratio (10-20) Glucose (70-99) mg/dl POC Glucose 274 H (70-99) Calcium (8.5-10.1) mg/dl L.pneumophila IgM Ab Pending Urine Legionella Ag Mycoplasma pneumon IgG Pending Mycoplasma pneumon IgM Pending Saccharo. viridis Ab Pending T. candidus Antibody Pending T. sacchari Antibody Pending T. vulgaris Antibody Pending Alternaria tenuis IgG Pending Aspergillus flavus Ab Pending Aspergill fumigatus Ab Pending Pending A. galactomannan Ag Pending A. galactomannan Ag Idx Pending Aspergillus niger Ab Pending Aureobasidium pullulans Pending Cladosporium herbar IgG Pending Penicillium notatum IgG Pending Phoma species IgG Ab Pending Trichoderma viride IgG Pending S. rectivirgula Pending Beta-(1,3)-D-Glucan Pending B-(1,3)-D-Glucan Intrp Pending 03/20/19 03/20/19 03/20/19 Range/Units 07:44 05:24 01:02 Sodium 141 (136-145) mmol/L Potassium 5.0 D (3.5-5.1) mmol/L Chloride 110 H (98-107) mmol/L Carbon Dioxide 25 (21-32) mmol/L Anion Gap 6.0 (3-11) BUN 21 H (7-18) mg/dl Creatinine 0.92 (0.6-1.2) mg/dl Est Cr Clr Drug Dosing 59.7 ml/min Est GFR ( Amer) 72.1 Est GFR (Non-Af Amer) 62.2 BUN/Creatinine Ratio 22.7 H (10-20) Glucose 227 H (70-99) mg/dl POC Glucose 261 H 218 H (70-99) Calcium 9.3 (8.5-10.1) mg/dl L.pneumophila IgM Ab Urine Legionella Ag Mycoplasma pneumon IgG Mycoplasma pneumon IgM Saccharo. viridis Ab T. candidus Antibody T. sacchari Antibody T. vulgaris Antibody Alternaria tenuis IgG Aspergillus flavus Ab Aspergill fumigatus Ab A. galactomannan Ag A. galactomannan Ag Idx Aspergillus niger Ab Aureobasidium pullulans Cladosporium herbar IgG Penicillium notatum IgG Phoma species IgG Ab Trichoderma viride IgG S. rectivirgula Beta-(1,3)-D-Glucan B-(1,3)-D-Glucan Intrp
[2019-03-20] MEDS: LEVOFLOXACIN/D5W 750 MG/150 ML BAG IV SCH (19:05)
[2019-03-20] MEDS: INSULIN GLARGINE SOLOSTAR 100 UNITS/ML 3 ML PEN SC SCH (21:50)
[2019-03-20] MEDS: CHOLECALCIFEROL 1,000 UNITS TAB PO SCH (21:53)
[2019-03-20] MEDS ORDERED: INSULIN ASPART 100 UNITS/ML 3 ML PEN SC ONE (22:06)
[2019-03-21] MEDS: LEVALBUTEROL HCL 1.25 MG/3 ML NEB NEB SCH ×4 (01:38→18:48)
[2019-03-21 05:58] LABS: Basophils # (auto) 0.01 K/uL (0-0.2); Basophils % (auto) 0.1 %; Hematocrit (blood only) 23.9 % (37-47); Hemoglobin 7.8 g/dL (12.0-16.0); Immature Granulocytes # (auto) 0.12 K/uL (0.00-0.02); Immature Granulocytes % (auto) 1.3 %; Lymphocytes % (auto) 3.3 %; Mean Corpuscular Hgb Conc 32.6 g/dL (32-36); Mean Corpuscular Volume 88.5 fL (80-100); Mean Platelet Volume 9.5 fL (7.4-10.4); Monocytes # (auto) 0.19 K/uL (0.11-0.59); Monocytes % (auto) 2.1 %; Neutrophils # (auto) 8.46 K/uL (1.4-6.5); Neutrophils % (auto) 93.2 %; Nucleated RBC # (auto) 0.03 K/uL (0-0); Nucleated RBC % (auto) 0.3 %; Platelet Count 122 K/uL (130-400); RDW Coefficient of Variation 18.4 % (11.5-14.5); RDW Standard Deviation 58.4 fL (36.4-46.3); White Blood Count 9.08 K/uL (4.8-10.8)
[2019-03-21] MEDS: LEVOTHYROXINE SODIUM 50 MCG TABLET PO SCH (06:10)
[2019-03-21 06:21] LABS: Tear Drop Cells Occasional
[2019-03-21 06:33] LABS: BUN Creatinine Ratio 29.5 (10-20); Creatinine Clr Calc Pharmacy 62.4 ml/min; Est GFR (African American) 76.1; Est GFR (Non-African American) 65.6; Magnesium 2.1 mg/dl (1.8-2.4); Potassium 4.9 mmol/L (3.5-5.1)
--- NOTE | 2019-03-21 07:33 | XRay Report ---
XR chest 1V portable CLINICAL HISTORY: pneumonitis dyspnea COMPARISON STUDY: 03/18/2019 FINDINGS: Slight improvement in aeration left lung base. Slight improvement in visibility left hemidi aphragm. Bilateral parenchymal infiltrative change is otherwise stable. IMPRESSION: Diffuse bilateral parenchymal infiltrative changes stable to slightly improved. The above report was generated using voice recognition software. It may contain grammatical, syntax or spelling errors. Electronically signed by: Shalom Silverman M.D. 03/21/2019 7:31 AM
[2019-03-21] MEDS: ACETAMINOPHEN 325 MG TAB PO PRN (08:02)
--- NOTE | 2019-03-21 08:17 | Infectious Disease Progress Nt ---
Date of Service March 21, 2019 Assessment & Plan (1) Interstitial pneumonitis: 73-year-old female with breast cancer on chemotherapy now with bilateral interstitial pneumonitis. Bacterial infection appears less likely given normal procalcitonin level. Think that drug reaction appears more likely. Discussed with pulm, may undergo biospy in upcoming week. will continue abx for now. crypto antigen negative. Would give consideration to transition to oral antibiotics in the next day or so if continues to improve. Will follow. Subjective pt seen in followup, eating breakfast. afebrile overnight, slept well. no f/c. no cough. slight underwood this morning but otherwise feeling better. on steroids and levaquin, tolerating well. no abd pain, no n/v/d. no cp, no sob. no wheeze. Review of Systems Review of Systems: All systems reviewed & are unremarkable except as noted in HPI & below Physical Exam Constitutional: WD/WN, vitals as above Eyes: PERRL, conjunctivae normal, anicteric sclerae ENMT: external ear and nose normal, oropharynx normal Neck: normal visual inspection Respiratory: normal respiratory effort, lungs clear to auscultation Cardiovascular: RRR, no murmur, no edema Gastrointestinal (Abdomen): normal bowel sounds, soft, nontender, no hepatosplenomegaly Musculoskeletal: no cyanosis or clubbing, extremities motor strength 5/5 Skin: no rashes, warm and dry Psychiatric: A+Ox3, euthymic affect Results & Data Vital Signs (Past 12 Hours) Vital Signs Temp Pulse Resp BP Pulse Ox 03/21/19 07:29 36.5 C 83 18 151/74 H 96 03/21/19 07:27 87 18 96 03/20/19 23:00 36.4 C L 83 20 136/72 96 Laboratory Results Microbiology 03/20/19 14:18 Blood Cryptococcal Antigen - Final
[2019-03-21] MEDS: INSULIN ASPART 100 UNITS/ML 3 ML PEN SC SCH ×4 (09:03→20:46)
[2019-03-21] MEDS: INSULIN GLARGINE SOLOSTAR 100 UNITS/ML 3 ML PEN SC SCH ×2 (09:04→20:46)
[2019-03-21] MEDS: FUROSEMIDE 20 MG TAB PO SCH (09:08)
[2019-03-21] MEDS: dilTIAZem HCL 120 MG CAPCR PO SCH (09:08)
[2019-03-21] MEDS: PANTOprazole 40 MG TAB PO SCH (09:09)
[2019-03-21] MEDS: SERTRALINE HCL 100 MG TABLET PO SCH (09:10)
[2019-03-21] MEDS: LISINOPRIL 10 MG TAB PO SCH (09:10)
[2019-03-21] MEDS: ENOXAPARIN INJ 40 MG/0.4 ML SYR SQ SCH (09:19)
[2019-03-21] MEDS: methylPREDNISolone 60 MG in SYRINGE 0 ML IV SCH (10:31)
--- NOTE | 2019-03-21 11:33 | Progress Note ---
DATE: 03/21/2019 PULMONARY MEDICINE PROGRESS NOTE Chart reviewed, the patient examined and assessed. SUBJECTIVE: The patient states she feels better today and is able to walk greater distances in the hallway with her O2 supplementation. Her cough is minimal and is dry and nonproductive. No pleuritic pain or chest discomfort noted. She is eating her meals and feels slightly stronger. PHYSICAL EXAMINATION: CURRENT VITAL SIGNS: Blood pressure 151/74, pulse 83 and regular, respiratory rate 18, temperature 36.5, O2 sat 96% on 3 liters. SKIN: Without lesion. HEENT: Atraumatic. Alopecia noted. PERRLA. EOMI. Conjunctivae pale. NECK: Neck veins are not distended at 45 degrees. LUNGS: Some fine rales at the posterior lung field. CARDIAC: Regular rhythm. I do not appreciate a gallop. ABDOMEN: Soft, protuberant. No evidence of hepatosplenomegaly. EXTREMITIES: No pedal edema, clubbing or cyanosis. NEUROLOGIC: Intact. The chest x-ray continues to show mixed interstitial and alveolar opacities, may be slightly improved. Other lab data pending patient's H and H has dropped a little bit further to 7.8 and 23.9, platelet count 122,000. OVERALL ASSESSMENT: A 73-year-old with history of bilateral breast carcinoma status post neoadjuvant chemotherapy with Taxol and cyclophosphamide with probable drug-induced lung toxicity appears clinically to be improving with very slow improvement radiographically. The anemia and thrombocytopenia noted. The patient may very well require a unit or two of packed red blood cells if there is any further drop in her hemoglobin, although as we get further away from her last or fourth cycle of neoadjuvant chemotherapy that should improve. As stated in my previous note and to the family as well as to Dr. Thomas and Dr. Jordan that if we do not see considerable improvement by Saturday or Saturday, we may need to consider a video-assisted thorascopic surgery but with a wedge biopsy and BAL. I think it is extremely unlikely invasive Aspergillus infection or pneumocystis J is operative here. It certainly cannot be definitively ruled out, although once again she clinically appears to be improving.
[2019-03-21 12:04] LABS: Hematocrit (blood only) 24.8 % (37-47); Hemoglobin 8.2 g/dL (12.0-16.0); Mean Corpuscular Hgb Conc 33.1 g/dL (32-36); Mean Corpuscular Volume 87.6 fL (80-100); Nucleated RBC # (auto) 0.05 K/uL (0-0); Nucleated RBC % (auto) 0.4 %; Platelet Count 143 K/uL (130-400); RDW Coefficient of Variation 18.5 % (11.5-14.5); RDW Standard Deviation 58.9 fL (36.4-46.3); Red Blood Count 2.83 M/uL (4.2-5.4); White Blood Count 11.51 K/uL (4.8-10.8)
--- NOTE | 2019-03-21 12:17 | Hospitalist Progress Note ---
Date of Service March 21, 2019 Assessment & Plan (1) PNA (pneumonia): With cough and shortness of breath developing several days prior to admission, no fevers CXR as noted with diffuse interstitial and alveolar opacities bilaterally CT angiogram of chest on 03/19 with no PE, with trace left pleural effusion, mild adenopathy, and bilateral interstitial and groundglass pulmonary opacities. Radiologist interpretation is: "Likely diagnostic considerations include multifocal pneumonia, drug reaction, or atypical appearance of pulmonary edema." PNA versus question of chemotherapy-induced pneumonitis from Taxol Pt with elevated WBC on admission, however had recent steroid use--improving Chest x-ray findings not secondary to pulmonary edema most likely as with echocardiogram with mild LVH, poorly visualized right ventricle, preserved LVEF at 55-60% Elevated lactic acid on admission, procalcitonin negative Given pt's immunocompromised state, treating as PNA for now, however seems to be most improved with starting steroids on 03/17 Infectious disease consultation also suspects pneumonitis Consider fungal infection, PCP pneumonia but not likely, CD4 count pending, mycoplasma, Legionella pending. Cryptococcal antigen negative Cefepime/vanco given initially, vancomycin was then discontinued due to negative MRSA swab -Levaquin was then added on on 03/17 as she was not improving -Cefepime now discontinued -ID recommends likely switching to oral antibiotics and finishing a course in the near future -Continue IV Solu-Medrol for the pneumonitis but will taper down to 40 mg every 12 hours due to severe hyperglycemia Follow chest imaging-repeat chest x-ray on 03/21 is improving -Appreciate pulmonary consultation- If not continuing to improve by Saturday, would consider VATS or bronchoscopy for lung biopsy and lavage -Pulmonary also started her on Lasix 20 mg daily in case some mild pulmonary edema component (2) Anemia: Hemoglobin stable around 8-9 which is around her baseline after review of her blood work from several weeks ago at [place]. CBC from this morning was lab error most likely Repeat CBC later today was stable from previous -Is likely antineoplastic related anemia -Follow CBC periodically (3) Breast cancer: Just finished chemo with Taxol and cyclophosphamide Has bilateral breast cancer Follows with Dr. Jordan at [facility] for oncology-I spoke with her on the phone today-phone number [phone]-she questions if PCP or fungal pneumonia as well, but agrees that it could very well be Taxol-induced pneumonitis Current plan is b/l mastectomy in March, date is TBD, with radiation afterwards (4) Hypothyroid: continue home levothyroxine 50 mg daily TSH was normal at 3 in the last 6 months (5) HTN (hypertension): Blood pressure is mildly elevated but also could be secondary to corticosteroid high-dose Pt with lisinopril increased the week prior to admission from 10mg to 20mg, however she had low blood pressures on admission and the dose was lowered back to 10 mg here Monitor with 10mg for now--stable -Continue diltiazem 120 mg p.o. once daily (6) GERD (gastroesophageal reflux disease): continue PPI (7) Depression: Stable -Continue home sertraline 100 mg daily (8) Acute respiratory failure with hypoxia: Requiring oxygen as above for pneumonia or chemotherapy-induced pneumonitis Weaned down to 3 L today which is an improvement -Continue to wean as tolerated to keep pulse ox greater than 90% Ambulation encouraged today -Flutter valve (9) Prediabetes: Hemoglobin A1c 6.1% back in the fall 2017 and is now only 6.4% With severe hyperglycemia here secondary to corticosteroid use -Treating for hyperglycemia as below (10) Hyperglycemia: With blood sugars persistently in the 200s and 300s secondary to corticosteroids despite escalation of insulin therapy Patient reports sugars have been in the 200s with taking steroids with her chemotherapy in the last couple of months. -Increase Lantus again to 28 units twice daily -We will once again tighten down NovoLog correction factor and carb ratio today -Continue Accu-Cheks -Continue diabetic diet -Tapering steroids down as above (11) Metabolic acidosis: Metabolic acidosis with bicarb of 18 and anion gap 12 associated with hyperglycemia Treated with IV fluids on 03/19 -Now resolved -Follow BMP -Continue to treat hyperglycemia (12) DVT prophylaxis: Lovenox for DVT proph Disposition-remain hospitalized Subjective Patient feeling less short of breath today. She ambulated the halls yesterday evening dyspneic with that but improved from previous. Denies chest pain or abdominal pain. Is coughing but nonproductive. Afebrile. She is moving her bowels and denies blood in her stool. Review of Systems Review of Systems: All systems reviewed & are unremarkable except as noted in HPI & below Physical Exam Constitutional: WD/WN, vitals as above + obese Eyes: PERRL, conjunctivae normal, anicteric sclerae Neck: trachea midline, no thyromegaly Respiratory: + cough (Frequent); no respiratory distress and no labored breathing Auscultation: + crackles (At right base only, otherwise much clearer than previous); no diminished lung sounds, no rhonchi and no wheezes Cardiovascular: RRR, no murmur, no edema Extremities: no calf tenderness and no pedal edema Gastrointestinal (Abdomen): normal bowel sounds, soft, nontender, no hepatosplenomegaly Musculoskeletal: Extremities: extremities normal to inspection; no cyanosis and no clubbing Skin: no rashes, warm and dry Neurologic: moves all extremities and awake; no focal motor deficits Psychiatric: A+Ox3, euthymic affect Results & Data Vital Signs (Past 12 Hours) Vital Signs Temp Pulse Resp BP Pulse Ox 03/21/19 07:29 36.5 C 83 18 151/74 H 96 03/21/19 07:27 87 18 96 Laboratory Results 03/21/19 03/21/19 03/21/19 Range/Units 11:55 11:50 11:49 WBC 11.51 H (4.8-10.8) K/uL RBC 2.83 L (4.2-5.4) M/uL Hgb 8.2 L (12.0-16.0) g/dL Hct 24.8 L (37-47) % MCV 87.6 (80-100) fL MCH 29.0 (25-34) pg MCHC 33.1 (32-36) g/dL RDW Std Deviation 58.9 H (36.4-46.3) fL RDW Coeff of Catrachito 18.5 H (11.5-14.5) % Plt Count 143 (130-400) K/uL MPV 9.0 (7.4-10.4) fL Immature Gran % (Auto) % Neut % (Auto) % Lymph % (Auto) % Blount % (Auto) % Eos % (Auto) % Baso % (Auto) % Immature Gran # (Auto) (0.00-0.02) K/uL Neut # (Auto) (1.4-6.5) K/uL Lymph # (Auto) (1.2-3.4) K/uL Blount # (Auto) (0.11-0.59) K/uL Eos # (Auto) (0-0.5) K/uL Baso # (Auto) (0-0.2) K/uL Absolute Nucleated RBC 0.05 H (0-0) K/uL Nucleated RBC % (auto) 0.4 % Tear Drop Cells Sodium (136-145) mmol/L Potassium (3.5-5.1) mmol/L Chloride (98-107) mmol/L Carbon Dioxide (21-32) mmol/L Anion Gap (3-11) BUN (7-18) mg/dl Creatinine (0.6-1.2) mg/dl Est Cr Clr Drug Dosing ml/min Est GFR ( Amer) Est GFR (Non-Af Amer) BUN/Creatinine Ratio (10-20) Glucose (70-99) mg/dl POC Glucose 313 H* 317 H* (70-99) Calcium (8.5-10.1) mg/dl Magnesium (1.8-2.4) mg/dl L.pneumophila IgM Ab Urine Legionella Ag Mycoplasma pneumon IgG Mycoplasma pneumon IgM Saccharo. viridis Ab T. candidus Antibody T. sacchari Antibody T. vulgaris Antibody Alternaria tenuis IgG Aspergillus flavus Ab Aspergill fumigatus Ab A. galactomannan Ag A. galactomannan Ag Idx Aspergillus niger Ab Aureobasidium pullulans Cladosporium herbar IgG Penicillium notatum IgG Phoma species IgG Ab Trichoderma viride IgG S. rectivirgula Beta-(1,3)-D-Glucan B-(1,3)-D-Glucan Intrp 03/21/19 03/21/19 03/21/19 Range/Units 07:52 05:25 05:25 WBC 9.08 (4.8-10.8) K/uL RBC 2.70 L (4.2-5.4) M/uL Hgb 7.8 L (12.0-16.0) g/dL Hct 23.9 L (37-47) % MCV 88.5 (80-100) fL MCH 28.9 (25-34) pg MCHC 32.6 (32-36) g/dL RDW Std Deviation 58.4 H (36.4-46.3) fL RDW Coeff of Catrachito 18.4 H (11.5-14.5) % Plt Count 122 L (130-400) K/uL MPV 9.5 (7.4-10.4) fL Immature Gran % (Auto) 1.3 % Neut % (Auto) 93.2 % Lymph % (Auto) 3.3 % Blount % (Auto) 2.1 % Eos % (Auto) 0.0 % Baso % (Auto) 0.1 % Immature Gran # (Auto) 0.12 H (0.00-0.02) K/uL Neut # (Auto) 8.46 H (1.4-6.5) K/uL Lymph # (Auto) 0.30 L (1.2-3.4) K/uL Blount # (Auto) 0.19 (0.11-0.59) K/uL Eos # (Auto) 0.00 (0-0.5) K/uL Baso # (Auto) 0.01 (0-0.2) K/uL Absolute Nucleated RBC 0.03 H (0-0) K/uL Nucleated RBC % (auto) 0.3 % Tear Drop Cells Occasional Sodium 141 (136-145) mmol/L Potassium 4.9 (3.5-5.1) mmol/L Chloride 107 (98-107) mmol/L Carbon Dioxide 28 (21-32) mmol/L Anion Gap 6.0 (3-11) BUN 26 H (7-18) mg/dl Creatinine 0.88 (0.6-1.2) mg/dl Est Cr Clr Drug Dosing 62.4 ml/min Est GFR ( Amer) 76.1 Est GFR (Non-Af Amer) 65.6 BUN/Creatinine Ratio 29.5 H (10-20) Glucose 197 H (70-99) mg/dl POC Glucose 242 H (70-99) Calcium 10.0 (8.5-10.1) mg/dl Magnesium 2.1 (1.8-2.4) mg/dl L.pneumophila IgM Ab Urine Legionella Ag Mycoplasma pneumon IgG Mycoplasma pneumon IgM Saccharo. viridis Ab T. candidus Antibody T. sacchari Antibody T. vulgaris Antibody Alternaria tenuis IgG Aspergillus flavus Ab Aspergill fumigatus Ab A. galactomannan Ag A. galactomannan Ag Idx Aspergillus niger Ab Aureobasidium pullulans Cladosporium herbar IgG Penicillium notatum IgG Phoma species IgG Ab Trichoderma viride IgG S. rectivirgula Beta-(1,3)-D-Glucan B-(1,3)-D-Glucan Intrp 03/21/19 03/20/19 03/20/19 Range/Units 00:01 19:53 16:51 WBC (4.8-10.8) K/uL RBC (4.2-5.4) M/uL Hgb (12.0-16.0) g/dL Hct (37-47) % MCV (80-100) fL MCH (25-34) pg MCHC (32-36) g/dL RDW Std Deviation (36.4-46.3) fL RDW Coeff of Catrachito (11.5-14.5) % Plt Count (130-400) K/uL MPV (7.4-10.4) fL Immature Gran % (Auto) % Neut % (Auto) % Lymph % (Auto) % Blount % (Auto) % Eos % (Auto) % Baso % (Auto) % Immature Gran # (Auto) (0.00-0.02) K/uL Neut # (Auto) (1.4-6.5) K/uL Lymph # (Auto) (1.2-3.4) K/uL Blount # (Auto) (0.11-0.59) K/uL Eos # (Auto) (0-0.5) K/uL Baso # (Auto) (0-0.2) K/uL Absolute Nucleated RBC (0-0) K/uL Nucleated RBC % (auto) % Tear Drop Cells Sodium (136-145) mmol/L Potassium (3.5-5.1) mmol/L Chloride (98-107) mmol/L Carbon Dioxide (21-32) mmol/L Anion Gap (3-11) BUN (7-18) mg/dl Creatinine (0.6-1.2) mg/dl Est Cr Clr Drug Dosing ml/min Est GFR ( Amer) Est GFR (Non-Af Amer) BUN/Creatinine Ratio (10-20) Glucose (70-99) mg/dl POC Glucose 151 H 306 H* 245 H (70-99) Calcium (8.5-10.1) mg/dl Magnesium (1.8-2.4) mg/dl L.pneumophila IgM Ab Urine Legionella Ag Mycoplasma pneumon IgG Mycoplasma pneumon IgM Saccharo. viridis Ab T. candidus Antibody T. sacchari Antibody T. vulgaris Antibody Alternaria tenuis IgG Aspergillus flavus Ab Aspergill fumigatus Ab A. galactomannan Ag A. galactomannan Ag Idx Aspergillus niger Ab Aureobasidium pullulans Cladosporium herbar IgG Penicillium notatum IgG Phoma species IgG Ab Trichoderma viride IgG S. rectivirgula Beta-(1,3)-D-Glucan B-(1,3)-D-Glucan Intrp 03/20/19 03/20/19 03/20/19 Range/Units 16:20 14:18 14:18 WBC (4.8-10.8) K/uL RBC (4.2-5.4) M/uL Hgb (12.0-16.0) g/dL Hct (37-47) % MCV (80-100) fL MCH (25-34) pg MCHC (32-36) g/dL RDW Std Deviation (36.4-46.3) fL RDW Coeff of Catrachito (11.5-14.5) % Plt Count (130-400) K/uL MPV (7.4-10.4) fL Immature Gran % (Auto) % Neut % (Auto) % Lymph % (Auto) % Blount % (Auto) % Eos % (Auto) % Baso % (Auto) % Immature Gran # (Auto) (0.00-0.02) K/uL Neut # (Auto) (1.4-6.5) K/uL Lymph # (Auto) (1.2-3.4) K/uL Blount # (Auto) (0.11-0.59) K/uL Eos # (Auto) (0-0.5) K/uL Baso # (Auto) (0-0.2) K/uL Absolute Nucleated RBC (0-0) K/uL Nucleated RBC % (auto) % Tear Drop Cells Sodium (136-145) mmol/L Potassium (3.5-5.1) mmol/L Chloride (98-107) mmol/L Carbon Dioxide (21-32) mmol/L Anion Gap (3-11) BUN (7-18) mg/dl Creatinine (0.6-1.2) mg/dl Est Cr Clr Drug Dosing ml/min Est GFR ( Amer) Est GFR (Non-Af Amer) BUN/Creatinine Ratio (10-20) Glucose (70-99) mg/dl POC Glucose (70-99) Calcium (8.5-10.1) mg/dl Magnesium (1.8-2.4) mg/dl L.pneumophila IgM Ab Pending Urine Legionella Ag Pending Mycoplasma pneumon IgG Pending Mycoplasma pneumon IgM Pending Saccharo. viridis Ab Pending T. candidus Antibody Pending T. sacchari Antibody Pending T. vulgaris Antibody Pending Alternaria tenuis IgG Pending Aspergillus flavus Ab Pending Aspergill fumigatus Ab Pending Pending A. galactomannan Ag Pending A. galactomannan Ag Idx Pending Aspergillus niger Ab Pending Aureobasidium pullulans Pending Cladosporium herbar IgG Pending Penicillium notatum IgG Pending Phoma species IgG Ab Pending Trichoderma viride IgG Pending S. rectivirgula Pending Beta-(1,3)-D-Glucan Pending B-(1,3)-D-Glucan Intrp Pending Diagnostic Findings Chest x-ray on 03/21 images personally reviewed by me and agree with the following: XR chest 1V portable CLINICAL HISTORY: pneumonitis dyspnea COMPARISON STUDY: 03/18/2019 FINDINGS: Slight improvement in aeration left lung base. Slight improvement in visibility left hemidiaphragm. Bilateral parenchymal infiltrative change is otherwise stable. IMPRESSION: Diffuse bilateral parenchymal infiltrative changes stable to slightly improved.
[2019-03-21] MEDS: LEVOFLOXACIN/D5W 750 MG/150 ML BAG IV SCH (19:08)
[2019-03-21] MEDS: CHOLECALCIFEROL 1,000 UNITS TAB PO SCH (20:47)
[2019-03-21] MEDS: methylPREDNISolone 40 MG in SYRINGE 0 ML IV SCH (21:42)
[2019-03-22] MEDS: LEVALBUTEROL HCL 1.25 MG/3 ML NEB NEB SCH ×4 (01:18→19:40)
[2019-03-22] MEDS: LEVOTHYROXINE SODIUM 50 MCG TABLET PO SCH (06:08)
[2019-03-22 06:09] LABS: Basophils # (auto) 0.01 K/uL (0-0.2); Basophils % (auto) 0.1 %; Hematocrit (blood only) 24.7 % (37-47); Hemoglobin 7.9 g/dL (12.0-16.0); Immature Granulocytes # (auto) 0.13 K/uL (0.00-0.02); Immature Granulocytes % (auto) 1.6 %; Lymphocytes # (auto) 0.32 K/uL (1.2-3.4); Lymphocytes % (auto) 3.9 %; Mean Corpuscular Volume 89.5 fL (80-100); Mean Platelet Volume 9.7 fL (7.4-10.4); Monocytes # (auto) 0.18 K/uL (0.11-0.59); Monocytes % (auto) 2.2 %; Neutrophils % (auto) 92.2 %; Nucleated RBC # (auto) 0.08 K/uL (0-0); Nucleated RBC % (auto) 0.9 %; Platelet Count 134 K/uL (130-400); RDW Coefficient of Variation 18.7 % (11.5-14.5); RDW Standard Deviation 60.5 fL (36.4-46.3); Red Blood Count 2.76 M/uL (4.2-5.4); White Blood Count 8.24 K/uL (4.8-10.8)
[2019-03-22 06:29] LABS: Tear Drop Cells Occasional
[2019-03-22 06:51] LABS: BUN Creatinine Ratio 33.4 (10-20); Creatinine Clr Calc Pharmacy 68.6 ml/min; Est GFR (African American) 85.4; Est GFR (Non-African American) 73.7; Potassium 4.1 mmol/L (3.5-5.1)
[2019-03-22] MEDS: ENOXAPARIN INJ 40 MG/0.4 ML SYR SQ SCH (09:19)
[2019-03-22] MEDS: PANTOprazole 40 MG TAB PO SCH (09:20)
[2019-03-22] MEDS: SERTRALINE HCL 100 MG TABLET PO SCH (09:20)
[2019-03-22] MEDS: FUROSEMIDE 20 MG TAB PO SCH (09:20)
[2019-03-22] MEDS: LISINOPRIL 10 MG TAB PO SCH (09:20)
[2019-03-22] MEDS: dilTIAZem HCL 120 MG CAPCR PO SCH (09:20)
[2019-03-22] MEDS: INSULIN ASPART 100 UNITS/ML 3 ML PEN SC SCH ×4 (09:21→21:20)
[2019-03-22] MEDS: INSULIN GLARGINE SOLOSTAR 100 UNITS/ML 3 ML PEN SC SCH ×2 (09:22→21:20)
--- NOTE | 2019-03-22 09:37 | Progress Note ---
DATE: 03/22/2019 Chart reviewed, patient examined. SUBJECTIVE: The patient was sleeping comfortable, feels that she is making slow progress with less dyspnea on exertion. Cough is minimal and certainly nonproductive without pleuritic pain. PHYSICAL EXAMINATION: VITAL SIGNS: Blood pressure 142/72, pulse 97 and regular, respiratory rate 18, temperature 36.6, O2 sat 96% on 2 liters. SKIN: Without lesion. HEENT: Atraumatic, normocephalic. PERRLA. LUNGS: Some fine crackles. CARDIAC: Regular rate and rhythm. I do not appreciate a gallop. ABDOMEN: Soft, protuberant. EXTREMITIES: No significant pedal edema, clubbing or cyanosis. NEUROLOGIC: Intact. No lateralizing signs. LABORATORY DATA: H and H 7.9 and 24.7, which is stable. Normal white count. Platelet count 134,000. Glucose levels are much more acceptable. Serology studies are pending. OVERALL ASSESSMENT: A 73-year-old with bilateral breast cancer, status post neoadjuvant chemotherapy with Taxol and cyclophosphamide suspect drug-induced interstitial pneumonitis with slow resolution while on current antibiotic selection and steroid therapy which has been slowly tapered. There remains an outside possibility of an invasive Aspergillus infection or even Pneumocystis J, though that would seem less likely given her clinical improvement . I would like to have Dr. Reddy see patient in consultation from a thoracic surgery standpoint and would consider a VATS procedure with biopsy if the patient plateaus clinically and does not show further improvement, but I think this would be less likely. The patient is amenable to seeing Dr. Reddy so that he knows about her presentation and can discuss her clinical course with the primary service and her oncologist at [facility], Dr. Jordan.Somewhat surprised at slow recovery of H and H and platelet count(if all secondary to chemotherapy at beginning of the month) and pt may benefit from PRBC transfusion. MTDD
[2019-03-22] MEDS: methylPREDNISolone 40 MG in SYRINGE 0 ML IV SCH ×2 (09:52→21:21)
--- NOTE | 2019-03-22 14:56 | Consultation Report ---
DATE OF CONSULTATION: 03/22/2019 REASON FOR CONSULTATION: Evaluate for possible lung biopsy. 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 She was hypoxic. The patient had bilateral breast cancers and has been treated with chemotherapy, and consideration for radiation therapy was also given. She is normally followed by Dr. Mosher. She was evaluated by Dr. James Jain from the pulmonary department, and I was asked to see her from a thoracic surgery standpoint to determine whether or not a lung biopsy would be required. It should be noted that the patient feels better, and this morning, the patient and her both state she is "much better" than she was [address] scan shows infiltrative pattern bilaterally, and she also has some lymphadenopathy. I had a long talk with the patient and her this morning in her room. PAST MEDICAL HISTORY: 1. Bilateral breast cancers. 2. Status post chemotherapy with immunosuppression. 3. Gastroesophageal reflux disease. 4. Hiatal hernia. 5. Depression. 6. Hypertension. 7. Hypothyroidism. PAST SURGICAL HISTORY: 0, para 0, abortus 0. MEDICATIONS: 1. Cyclophosphamide. 2. Dexamethasone. 3. Cartia XT. 4. Lisinopril. 5. Synthroid. 6. Omeprazole. 7. Paclitaxel. 8. Sertraline (the patient has not received her chemotherapy since 03/02/2019). ALLERGIES: 1. PENICILLIN CAUSES A RASH. 2. SHELLFISH CAUSES URTICARIA WITH RASH. SOCIAL HISTORY: The patient lives with her . She is originally from [place]. She currently lives in [place]. 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 She has never smoked cigarettes. She does not really drink alcohol. She lives at home with her . She has no children. FAMILY MEDICAL HISTORY: The patient's father at 85 and suffered from "age related leukemia" as well as prostate cancer and apparently had a cerebrovascular accident. Her mother at 82 from malignant melanoma. REVIEW OF SYSTEMS: The patient states her weight has been relatively stable. She does have alopecia. She has respiratory issues as described in the history of present illness. She denies palpitations or chest pain. She has had no visual symptoms that are acute. She does wear glasses. She denies problems with her hearing. She has had no skin breakdown or rashes. She has had no GI symptoms such as nausea, vomiting, or diarrhea. She denies abdominal pain. She denies any symptoms such as hematuria, dysuria, or frequency. She has no neurologic symptoms suggestive of transient ischemic attack or brain metastases. She has no focal deficits, seizures, transient ischemic attacks, or amaurosis fugax. She has no peripheral edema. She denies rest pain or joint swelling. PHYSICAL EXAMINATION: GENERAL: This is a 5 feet 5 inches, 190 pound female, who is awake, alert and oriented. She wears glasses. She is wearing supplemental oxygen. On 2 liters, she has 96% saturations. She is afebrile. HEENT: Her extraocular movements are intact. Sclerae are pale but anicteric. She has no nasolabial flattening. Tongue is midline. She is edentulous with upper and lower denture plates, but I see no evidence of candidiasis or any breakdown or wounds. Tongue is midline. NECK: Supple. I really detect no supraclavicular or cervical lymphadenopathy or neck vein distention. She has no thyromegaly. HEART: She has a regular rate and rhythm of her heart with no significant rub. I detect no significant murmur. LUNGS: She is actually moving air well with occasional upper airway rhonchi. She has some clearing of this with cough. The patient does state that her cough is "looser" than it was earlier. She has a few crackles in both bases but really her lungs are by large clear. ABDOMEN: Obese, soft, nontender. She has no evidence of ascites or hepatosplenomegaly. EXTREMITIES: She has excellent peripheral pulses. She has no joint effusions; however, she does have trace edema of her pretibial area. She has good capillary refill. NEUROLOGIC: She is completely intact. ASSESSMENT AND PLAN: A 73-year-old female with questionable interstitial pneumonitis. The differential diagnosis for her x-ray and clinical findings with hypoxemia is rather long. I agree with Dr. Jain that a lung biopsy may be necessary. However, if she continues to improve with the current therapy, we may hold off. I will follow along with her for the next few days, and if we do not see significant improvement, we will proceed with a lung biopsy. We discussed this in detail at the patient's bedside today.
[2019-03-22] MEDS: LEVOFLOXACIN/D5W 750 MG/150 ML BAG IV SCH (18:30)
--- NOTE | 2019-03-22 19:45 | Infectious Disease Progress Nt ---
Date of Service March 22, 2019 Assessment & Plan (1) Interstitial pneumonitis: 73-year-old female with breast cancer on chemotherapy now with bilateral interstitial pneumonitis. Bacterial infection appears less likely given normal procalcitonin level. Think that drug reaction appears more likely. Discussed with pulm, may undergo biospy in upcoming week. will continue abx for now. crypto antigen negative. Would give consideration to transition to oral antibiotics in the next day or so if continues to improve. Will follow. Subjective pt seen in followup, eating breakfast. afebrile overnight, slept well. no f/c. no cough. slight underwood this morning but otherwise feeling better. on steroids and levaquin, tolerating well. no abd pain, no n/v/d. no cp, no sob. no wheeze. Review of Systems Review of Systems: All systems reviewed & are unremarkable except as noted in HPI & below Physical Exam Constitutional: WD/WN, vitals as above comfortable; no acute distress Eyes: PERRL, conjunctivae normal, anicteric sclerae ENMT: external ear and nose normal, oropharynx normal Neck: trachea midline, no thyromegaly neck nontender Respiratory: normal respiratory effort, lungs clear to auscultation normal percussion; does not use accessory muscles Cardiovascular: Rate/Rhythm: regular rate and regular rhythm Heart Sounds: normal S1 and normal S2; no gallop, no murmur and no cardiac rub Vessels: normal peripheral pulses; no JVD Gastrointestinal (Abdomen): normal bowel sounds, soft, nontender, no hepatosplenomegaly Musculoskeletal: no cyanosis or clubbing, extremities motor strength 5/5 Spine: thoracic spine normal to inspection and lumbar spine normal to inspection; no cervical spinal tenderness Skin: no rashes, warm and dry normal turgor; no lesions Neurologic: patellar DTR's 2+ bilat, sensation intact no focal motor deficits Psychiatric: A+Ox3, euthymic affect Orientation: cooperative Lymphatic: no cervical or axillary lymphadenopathy no inguinal lymph adenopathy Results & Data Vital Signs (Past 12 Hours) Vital Signs Temp Pulse Resp BP Pulse Ox 03/22/19 19:41 95 H 16 94 03/22/19 15:03 36.7 C 101 H 18 104/58 L 96 03/22/19 14:27 89 18 97 03/22/19 11:06 36.4 C L 92 H 18 126/75 95 Laboratory Results Laboratory Results - last 48 hr 03/20/19 03/21/19 03/21/19 19:53 00:01 05:25 WBC 9.08 RBC 2.70 L Hgb 7.8 L Hct 23.9 L MCV 88.5 MCH 28.9 MCHC 32.6 RDW Std Deviation 58.4 H RDW Coeff of [place] 18.4 H Plt Count 122 L MPV 9.5 Immature Gran % (Auto) 1.3 Neut % (Auto) 93.2 Lymph % (Auto) 3.3 [place] % (Auto) 2.1 Eos % (Auto) 0.0 Baso % (Auto) 0.1 Immature Gran # (Auto) 0.12 H Neut # (Auto) 8.46 H Lymph # (Auto) 0.30 L [place] # (Auto) 0.19 Eos # (Auto) 0.00 Baso # (Auto) 0.01 Absolute Nucleated RBC 0.03 H Nucleated RBC % (auto) 0.3 Tear Drop Cells Occasional Sodium Potassium Chloride Carbon Dioxide Anion Gap BUN Creatinine Est Cr Clr Drug Dosing Est GFR ( Amer) Est GFR (Non-Af Amer) BUN/Creatinine Ratio Glucose POC Glucose 306 H* 151 H Calcium Magnesium Stool Occult Bld Scrn 03/21/19 03/21/19 03/21/19 05:25 07:52 11:49 WBC RBC Hgb Hct MCV MCH MCHC RDW Std Deviation RDW Coeff of [place] Plt Count MPV Immature Gran % (Auto) Neut % (Auto) Lymph % (Auto) [place] % (Auto) Eos % (Auto) Baso % (Auto) Immature Gran # (Auto) Neut # (Auto) Lymph # (Auto) [place] # (Auto) Eos # (Auto) Baso # (Auto) Absolute Nucleated RBC Nucleated RBC % (auto) Tear Drop Cells Sodium 141 Potassium 4.9 Chloride 107 Carbon Dioxide 28 Anion Gap 6.0 BUN 26 H Creatinine 0.88 Est Cr Clr Drug Dosing 62.4 Est GFR ( Amer) 76.1 Est GFR (Non-Af Amer) 65.6 BUN/Creatinine Ratio 29.5 H Glucose 197 H POC Glucose 242 H 317 H* Calcium 10.0 Magnesium 2.1 Stool Occult Bld Scrn 03/21/19 03/21/19 03/21/19 11:50 11:55 16:05 WBC 11.51 H RBC 2.83 L Hgb 8.2 L Hct 24.8 L MCV 87.6 MCH 29.0 MCHC 33.1 RDW Std Deviation 58.9 H RDW Coeff of [place] 18.5 H Plt Count 143 MPV 9.0 Immature Gran % (Auto) Neut % (Auto) Lymph % (Auto) [place] % (Auto) Eos % (Auto) Baso % (Auto) Immature Gran # (Auto) Neut # (Auto) Lymph # (Auto) [place] # (Auto) Eos # (Auto) Baso # (Auto) Absolute Nucleated RBC 0.05 H Nucleated RBC % (auto) 0.4 Tear Drop Cells Sodium Potassium Chloride Carbon Dioxide Anion Gap BUN Creatinine Est Cr Clr Drug Dosing Est GFR ( Amer) Est GFR (Non-Af Amer) BUN/Creatinine Ratio Glucose POC Glucose 313 H* Calcium Magnesium Stool Occult Bld Scrn Negative 03/21/19 03/21/19 03/22/19 16:54 20:05 05:14 WBC 8.24 RBC 2.76 L Hgb 7.9 L Hct 24.7 L MCV 89.5 MCH 28.6 MCHC 32.0 RDW Std Deviation 60.5 H RDW Coeff of [place] 18.7 H Plt Count 134 MPV 9.7 Immature Gran % (Auto) 1.6 Neut % (Auto) 92.2 Lymph % (Auto) 3.9 [place] % (Auto) 2.2 Eos % (Auto) 0.0 Baso % (Auto) 0.1 Immature Gran # (Auto) 0.13 H Neut # (Auto) 7.60 H Lymph # (Auto) 0.32 L [place] # (Auto) 0.18 Eos # (Auto) 0.00 Baso # (Auto) 0.01 Absolute Nucleated RBC 0.08 H Nucleated RBC % (auto) 0.9 Tear Drop Cells Occasional Sodium Potassium Chloride Carbon Dioxide Anion Gap BUN Creatinine Est Cr Clr Drug Dosing Est GFR ( Amer) Est GFR (Non-Af Amer) BUN/Creatinine Ratio Glucose POC Glucose 143 H 243 H Calcium Magnesium Stool Occult Bld Scrn 03/22/19 03/22/19 03/22/19 05:14 08:09 11:49 WBC RBC Hgb Hct MCV MCH MCHC RDW Std Deviation RDW Coeff of [place] Plt Count MPV Immature Gran % (Auto) Neut % (Auto) Lymph % (Auto) [place] % (Auto) Eos % (Auto) Baso % (Auto) Immature Gran # (Auto) Neut # (Auto) Lymph # (Auto) [place] # (Auto) Eos # (Auto) Baso # (Auto) Absolute Nucleated RBC Nucleated RBC % (auto) Tear Drop Cells Sodium 141 Potassium 4.1 D Chloride 105 Carbon Dioxide 30 Anion Gap 6.0 BUN 27 H Creatinine 0.80 Est Cr Clr Drug Dosing 68.6 Est GFR ( Amer) 85.4 Est GFR (Non-Af Amer) 73.7 BUN/Creatinine Ratio 33.4 H Glucose 155 H POC Glucose 195 H 192 H Calcium 9.0 Magnesium Stool Occult Bld Scrn 03/22/19 16:40 WBC RBC Hgb Hct MCV MCH MCHC RDW Std Deviation RDW Coeff of [place] Plt Count MPV Immature Gran % (Auto) Neut % (Auto) Lymph % (Auto) [place] % (Auto) Eos % (Auto) Baso % (Auto) Immature Gran # (Auto) Neut # (Auto) Lymph # (Auto) [place] # (Auto) Eos # (Auto) Baso # (Auto) Absolute Nucleated RBC Nucleated RBC % (auto) Tear Drop Cells Sodium Potassium Chloride Carbon Dioxide Anion Gap BUN Creatinine Est Cr Clr Drug Dosing Est GFR ( Amer) Est GFR (Non-Af Amer) BUN/Creatinine Ratio Glucose POC Glucose 126 H Calcium Magnesium Stool Occult Bld Scrn Diagnostic Findings Microbiology 03/20/19 14:18 Blood Cryptococcal Antigen - Final XR chest 1V portable CLINICAL HISTORY: pneumonitis dyspnea COMPARISON STUDY: 03/18/2019 FINDINGS: Slight improvement in aeration left lung base. Slight improvement in visibility left hemidiaphragm. Bilateral parenchymal infiltrative change is otherwise stable. IMPRESSION: Diffuse bilateral parenchymal infiltrative changes stable to slightly improved.
[2019-03-22] MEDS: CHOLECALCIFEROL 1,000 UNITS TAB PO SCH (21:19)
--- NOTE | 2019-03-23 00:53 | Hospitalist Progress Note ---
Date of Service DOS actually 03/22/19 March 23, 2019 Assessment & Plan (1) PNA (pneumonia): With cough and shortness of breath developing several days prior to admission, no fevers CXR as noted with diffuse interstitial and alveolar opacities bilaterally CT angiogram of chest on 03/19 with no PE, with trace left pleural effusion, mild adenopathy, and bilateral interstitial and groundglass pulmonary opacities. Radiologist interpretation is: "Likely diagnostic considerations include multifo bee pneumonia, drug reaction, or atypical appearance of pulmonary edema." PNA versus question of chemotherapy-induced pneumonitis from Taxol Pt with elevated WBC on admission, however had recent steroid use--now resolved Chest x-ray findings not secondary to pulmonary edema most likely as echocardiogram with mild LVH, poorly visualized right ventricle, preserved LVEF at 55-60% Elevated lactic acid on admission, procalcitonin negative Given pt's immunocompromised state, treating as PNA for now, however seems to be most improved with starting steroids on 03/17 Infectious disease consultation also suspects pneumonitis Consider fungal infection/invasive Aspergillus, PCP pneumonia but not likely, CD4 count pending, mycoplasma, Legionella pending. Cryptococcal antigen negative. All fungal titers pending Cefepime/vanco given initially, vancomycin was then discontinued due to negative MRSA swab -Levaquin was then added on on 03/17 as she was not improving-today day#6 -Cefepime now discontinued -ID recommends likely switching to oral antibiotics and finishing a course in the near future-will defer to ID on the timing of such -Continue IV Solu-Medrol for the pneumonitis -have since tapered down to 40 mg every 12 hours due to severe hyperglycemia Follow chest imaging-repeat chest x-ray on 03/21 is improving -Appreciate pulmonary consultation- If not continuing to improve by Saturday, Thoracic Surgery has been consulted to discuss possible VATS or bronchoscopy for lung biopsy and lavage -Pulmonary also started her on Lasix 20 mg daily in case some mild pulmonary edema component (2) Anemia: Hemoglobin stable around 8-9 which is around her baseline after review of her blood work from several weeks ago at [facility]. 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 [facility] [place]I spoke with her on the phone on Saturday-phone number [phone]-she questions if PCP or fungal pneumonia as well, but agrees that it could very well be Taxol-induced pneumonitis Current plan is b/l mastectomy in March, date is TBD, with radiation afterwards (4) Hypothyroid: continue home levothyroxine 50 mg daily TSH was normal at 3 in the last 6 months (5) HTN (hypertension): Blood pressure is mildly elevated but also could be secondary to corticosteroid high-dose Pt with lisinopril increased the week prior to admission from 10mg to 20mg, however she had low blood pressures on admission and the dose was lowered back to 10 mg here Monitor with 10mg for now--stable -Continue diltiazem 120 mg p.o. once daily (6) GERD (gastroesophageal reflux disease): continue PPI (7) Depression: Stable -Continue home sertraline 100 mg daily (8) Acute respiratory failure with hypoxia: Requiring oxygen as above for pneumonia or chemotherapy-induced pneumonitis Weaned down again to 2 L today which is continued improvement -Continue to wean as tolerated to keep pulse ox greater than 90% Ambulation encouraged today -Flutter valve (9) Prediabetes: Hemoglobin A1c 6.1% back in the fall 2018 and is now only 6.4% With severe hyperglycemia here secondary to corticosteroid use -Treating for hyperglycemia as below (10) Hyperglycemia: With blood sugars persistently in the 200s and 300s secondary to corticos teroids despite escalation of insulin therapy-finally now improving after reduction in IV SOlu Medrol dose and significant escalation of insulin therapy Patient reports sugars have been in the 200s with taking steroids with her chemotherapy in the last couple of months.She does not take anything at home for DM -continue same dose of Lantus 28 units twice daily -continue NovoLog correction factor and carb ratio -Continue Accu-Cheks -Continue diabetic diet -Tapering steroids down as above (11) Metabolic acidosis: Metabolic acidosis with bicarb of 18 and anion gap 12 associated with hyperglycemia Treated with IV fluids on 03/19 -Now resolved -Follow BMP -Continue to treat hyperglycemia (12) DVT prophylaxis: Lovenox for DVT proph Disposition-remain hospitalized Subjective Pt feeling a little better each day. Still with GARRETT, dry cough. Is amy po, no N/V, no chest pain. No abd pain, is moving her bowels. Discussed the case with Dr. Reddy today of Thoracic Surgery Review of Systems Review of Systems: All systems reviewed & are unremarkable except as noted in HPI & below Physical Exam Constitutional: WD/WN, vitals as above (with alopecia) + obese Eyes: PERRL, conjunctivae normal, anicteric sclerae Neck: trachea midline, no thyromegaly Respiratory: + cough (Frequent); no respiratory distress and no labored breathing Auscultation: + crackles (At right base only, otherwise much clearer than previous); no diminished lung sounds, no rhonchi and no wheezes Cardiovascular: RRR, no murmur, no edema Extremities: no calf tenderness and no pedal edema Gastrointestinal (Abdomen): normal bowel sounds, soft, nontender, no hepatosplenomegaly Musculoskeletal: Extremities: extremities normal to inspection; no cyanosis and no clubbing Skin: no rashes, warm and dry Neurologic: moves all extremities and awake; no focal motor deficits Psychiatric: A+Ox3, euthymic affect Results & Data Vital Signs (Past 12 Hours) Vital Signs Temp Pulse Pulse Resp BP BP Pulse Ox 03/22/19 23:15 36.4 C L 87 20 120/62 97 03/22/19 20:00 36.5 C 102 H 20 123/67 96 03/22/19 19:41 95 H 16 94 03/22/19 15:03 36.7 C 101 H 18 104/58 L 96 03/22/19 14:27 89 18 97 Laboratory Results WBC 8 Hgb 7.9 plts 134 BMP wnl except glucose 155
[2019-03-23] MEDS: LEVALBUTEROL HCL 1.25 MG/3 ML NEB NEB SCH ×2 (02:07→07:03)
[2019-03-23 06:25] LABS: Hematocrit (blood only) 25.1 % (37-47); Hemoglobin 8.2 g/dL (12.0-16.0); Immature Granulocytes # (auto) 0.35 K/uL (0.00-0.02); Immature Granulocytes % (auto) 4.3 %; Lymphocytes # (auto) 0.29 K/uL (1.2-3.4); Lymphocytes % (auto) 3.6 %; Mean Corpuscular Hgb Conc 32.7 g/dL (32-36); Mean Corpuscular Volume 89.3 fL (80-100); Mean Platelet Volume 9.4 fL (7.4-10.4); Monocytes # (auto) 0.24 K/uL (0.11-0.59); Neutrophils # (auto) 7.19 K/uL (1.4-6.5); Neutrophils % (auto) 89.1 %; Nucleated RBC # (auto) 0.04 K/uL (0-0); Nucleated RBC % (auto) 0.5 %; Platelet Count 128 K/uL (130-400); RDW Coefficient of Variation 18.9 % (11.5-14.5); RDW Standard Deviation 60.3 fL (36.4-46.3); Red Blood Count 2.81 M/uL (4.2-5.4); White Blood Count 8.07 K/uL (4.8-10.8)
[2019-03-23] MEDS: LEVOTHYROXINE SODIUM 50 MCG TABLET PO SCH (06:36)
[2019-03-23 07:01] LABS: BUN Creatinine Ratio 31.1 (10-20); Calcium 9.3 mg/dl (8.5-10.1); Est GFR (African American) 82.9; Est GFR (Non-African American) 71.5; Potassium 4.5 mmol/L (3.5-5.1)
[2019-03-23] MEDS: SERTRALINE HCL 100 MG TABLET PO SCH (08:19)
[2019-03-23] MEDS: ENOXAPARIN INJ 40 MG/0.4 ML SYR SQ SCH (08:19)
[2019-03-23] MEDS: FUROSEMIDE 20 MG TAB PO SCH (08:19)
[2019-03-23] MEDS: dilTIAZem HCL 120 MG CAPCR PO SCH (08:19)
[2019-03-23] MEDS: PANTOprazole 40 MG TAB PO SCH (08:19)
[2019-03-23] MEDS: LISINOPRIL 10 MG TAB PO SCH (08:19)
[2019-03-23] MEDS: INSULIN GLARGINE SOLOSTAR 100 UNITS/ML 3 ML PEN SC SCH ×2 (08:20→20:37)
[2019-03-23] MEDS: INSULIN ASPART 100 UNITS/ML 3 ML PEN SC SCH ×4 (08:22→20:37)
[2019-03-23] MEDS: ACETAMINOPHEN 325 MG TAB PO PRN ×2 (08:28→17:53)
--- NOTE | 2019-03-23 08:58 | XRay Report ---
XR chest 2V routine CLINICAL HISTORY: interstial LD pain. Edema. COMPARISON STUDY: 03/21/2019 FINDINGS: Improving bilateral parenchymal infiltrative and or pulmonary vascular type change. Mid and upper lungs are currently clear. Persistent infiltrative change left and to lesser extent right base. IMPRESSION: Improved exam. Mild residual parenchymal infiltrative change lung bases. Upper lungs are now considered clear. The above report was generated using voice recognition software. It may contain grammatical, syntax or spelling errors. Electronically signed by: Shalom Silverman M.D. 03/23/2019 8:57 AM
[2019-03-23] MEDS: methylPREDNISolone 40 MG in SYRINGE 0 ML IV SCH ×2 (09:51→21:59)
--- NOTE | 2019-03-23 09:53 | Progress Note ---
DATE: 03/23/2019 Ms. Tadeo was seen today. She is "definitely better." Her exam is unchanged. She is still requiring oxygen, but states that she feels much better than she did. I will discuss this with Dr. Jain; however, I was once on the fence about offering her a lung biopsy and probably leaning against it now. We discussed this in detail again today. We will see how she looks in the morning and I will discuss this with Dr. Jain.
--- NOTE | 2019-03-23 10:23 | Hospitalist Progress Note ---
Date of Service March 23, 2019 Assessment & Plan (1) Interstitial pneumonitis: likely due to recent treatment with Taxol responding well to Steroids CXR on 03/23 with clearing of upper lobes will need to discuss with pulmonology about switching to Prednisone, dosing and how long (2) PNA (pneumonia): With cough and shortness of breath developing several days prior to admission, no fevers CXR as noted with diffuse interstitial and alveolar opacities bilaterally CT angiogram of chest on 03/19 with no PE, with trace left pleural effusion, mild adenopathy, and bilateral interstitial and groundglass pulmonary opacities. Radiologist interpretation is: "Likely diagnostic considerations include multifocal pneumonia, drug reaction, or atypical appearance of pulmonary edema." PNA versus question of chemotherapy-induced pneumonitis from Taxol today is day 7 of antibiotics, on Levaquin will d/w ID about how long to treat at this time no plan for VATS/biopsy since she is improving clinically (3) Anemia: Hemoglobin stable around 8-9 which is around her baseline after review of her blood work from several weeks ago at [facility]. 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 [place] [facility] [place] colleague spoke with her on the phone on Saturday-phone number [phone]-she questions if PCP or fungal pneumonia as well, but agrees that it could very well be Taxol-induced pneumonitis Current plan is b/l mastectomy in March, date is TBD, with radiation afterwards (5) Hypothyroid: continue home levothyroxine 50 mg daily TSH was normal at 3 in the last 6 months (6) HTN (hypertension): Blood pressure is mildly elevated but also could be secondary to corticosteroid high-dose Pt with lisinopril increased the week prior to admission from 10mg to 20mg, however she had low blood pressures on admission and the dose was lowered back to 10 mg here Monitor with 10mg for now--stable -Continue diltiazem 120 mg p.o. once daily (7) GERD (gastroesophageal reflux disease): continue PPI (8) Depression: Stable -Continue home sertraline 100 mg daily (9) Acute respiratory failure with hypoxia: Requiring oxygen as above for pneumonia or chemotherapy-induced pneumonitis Weaned down again to 2 L which is continued improvement -Continue to wean as tolerated to keep pulse ox greater than 90% Ambulation encouraged today -Flutter valve may need two step prior to discharge if unable to titrate off oxygen (10) Prediabetes: Hemoglobin A1c 6.1% back in the fall 2018 and is now only 6.4% With severe hyperglycemia here secondary to corticosteroid use -Treating for hyperglycemia as below (11) Hyperglycemia: With blood sugars persistently in the 200s and 300s secondary to corticosteroids despite escalation of insulin therapy-finally now improving after reduction in IV SOlu Medrol dose and significant escalation of insulin therapy Patient reports sugars have been in the 200s with taking steroids with her chemotherapy in the last couple of months.She does not take anything at home for DM -continue same dose of Lantus 28 units twice daily -continue NovoLog correction factor and carb ratio -Continue Accu-Cheks -Continue diabetic diet -Tapering steroids down as above glucose 136 this morning, doing well (12) Metabolic acidosis: Metabolic acidosis with bicarb of 18 and anion gap 12 associated with hyperglycemia Treated with IV fluids on 03/19 -Now resolved -Follow BMP -Continue to treat hyperglycemia (13) DVT prophylaxis: Lovenox for DVT proph Disposition-remain hospitalized, consider discharge in the next 48 hours if she continues to improve Subjective patient is breathing better today, says she definitely feels like she is responding to steroids reviewed CXR today, upper lobes are clearing discussed with Dr. Reddy, no plan for VATS/biopsy at this point since she is doing better updated patient's at the bedside patient is eating well, moving bowels, no issues urinating Review of Systems Review of Systems: All systems reviewed & are unremarkable except as noted in HPI & below Respiratory: + cough, + dyspnea and + dyspnea on exertion; no sputum production Cardiovascular: no chest pain, no palpitations and no edema Gastrointestinal: no abdominal pain, no nausea, no vomiting, no constipation and no diarrhea/loose stools Physical Exam Constitutional: WD/WN, vitals as above Eyes: PERRL, conjunctivae normal, anicteric sclerae ENMT: external ear and nose normal, oropharynx normal Neck: trachea midline, no thyromegaly Respiratory: normal respiratory effort; no respiratory distress Auscultation: + crackles (bases); no rales, no rhonchi and no wheezes Cardiovascular: RRR, no murmur, no edema Gastrointestinal (Abdomen): normal bowel sounds, soft, nontender, no hepatosplenomegaly Musculoskeletal: no cyanosis or clubbing, extremities motor strength 5/5 Skin: no rashes, warm and dry Neurologic: patellar DTR's 2+ bilat, sensation intact and PERRL, EOMI, accommodation nl, no face palsy, no dysarthria Psychiatric: A+Ox3, euthymic affect Lymphatic: no cervical or axillary lymphadenopathy Results & Data Vital Signs (Past 12 Hours) Vital Signs Temp Pulse Pulse Resp BP BP Pulse Ox 03/23/19 07:18 36.3 C L 78 18 144/70 H 93 03/23/19 07:06 97 H 18 91 03/23/19 03:47 36.8 C 86 20 134/73 95 03/22/19 23:15 36.4 C L 87 20 120/62 97 Laboratory Results Laboratory Results - last 24 hr 03/22/19 03/22/19 03/23/19 16:40 20:19 05:24 WBC 8.07 RBC 2.81 L Hgb 8.2 L Hct 25.1 L MCV 89.3 MCH 29.2 MCHC 32.7 RDW Std Deviation 60.3 H RDW Coeff of Catrachito 18.9 H Plt Count 128 L MPV 9.4 Immature Gran % (Auto) 4.3 Neut % (Auto) 89.1 Lymph % (Auto) 3.6 Bremer % (Auto) 3.0 Eos % (Auto) 0.0 Baso % (Auto) 0.0 Immature Gran # (Auto) 0.35 H Neut # (Auto) 7.19 H Lymph # (Auto) 0.29 L Bremer # (Auto) 0.24 Eos # (Auto) 0.00 Baso # (Auto) 0.00 Absolute Nucleated RBC 0.04 H Nucleated RBC % (auto) 0.5 Sodium Potassium Chloride Carbon Dioxide Anion Gap BUN Creatinine Est Cr Clr Drug Dosing Est GFR ( Amer) Est GFR (Non-Af Amer) BUN/Creatinine Ratio Glucose POC Glucose 126 H 194 H Calcium 03/23/19 03/23/19 03/23/19 05:24 08:01 11:52 WBC RBC Hgb Hct MCV MCH MCHC RDW Std Deviation RDW Coeff of Catrachito Plt Count MPV Immature Gran % (Auto) Neut % (Auto) Lymph % (Auto) Bremer % (Auto) Eos % (Auto) Baso % (Auto) Immature Gran # (Auto) Neut # (Auto) Lymph # (Auto) Bremer # (Auto) Eos # (Auto) Baso # (Auto) Absolute Nucleated RBC Nucleated RBC % (auto) Sodium 143 Potassium 4.5 Chloride 105 Carbon Dioxide 28 Anion Gap 10.0 BUN 26 H Creatinine 0.82 Est Cr Clr Drug Dosing 67.0 Est GFR ( Amer) 82.9 Est GFR (Non-Af Amer) 71.5 BUN/Creatinine Ratio 31.1 H Glucose 136 H POC Glucose 155 H 151 H Calcium 9.3 Diagnostic Findings XR chest 2V routine CLINICAL HISTORY: interstial LD pain. Edema. COMPARISON STUDY: 03/21/2019 FINDINGS: Improving bilateral parenchymal infiltrative and or pulmonary vascular type change. Mid and upper lungs are currently clear. Persistent infiltrative change left and to lesser extent right base. IMPRESSION: Improved exam. Mild residual parenchymal infiltrative change lung bases. Upper lungs are now considered clear. Medications Administered Current Inpatient Medications Acetaminophen (Tylenol) 650 mg PO Q4H PRN PRN Reason: pain/fever Stop: 04/12/19 15:55 Last Admin: 03/23/19 08:28 Dose: 650 mg Documented by: Dextrose (Dextrose 50%) 25 - 50 ml IV UD PRN; Protocol PRN Reason: Hypoglycemia Protocol Stop: 04/18/19 11:15 Diltiazem HCl (Cardizem Cd) 120 [facility] Stop: 04/13/19 08:59 Last Admin: 03/23/19 08:19 Dose: 120 mg Documented by: Enoxaparin Sodium (Lovenox) 40 mg SQ QAM [facility] Stop: 04/13/19 08:59 Last Admin: 03/23/19 08:19 Dose: 40 mg Documented by: Furosemide (Lasix) 20 mg PO QAM [facility] Stop: 04/19/19 08:59 Last Admin: 03/23/19 08:19 Dose: 20 mg Documented by: Glucagon (Glucagen) 1 mg SQ UD PRN; Protocol PRN Reason: Hypoglycemia Protocol Stop: 04/18/19 11:15 Glucose (Glucose 40%) 15 - 30 gm PO UD PRN; Protocol PRN Reason: Hypoglycemia Protocol Stop: 04/18/19 11:15 Glucose (Dex4 Glucose) 4 - 8 tabs PO UD PRN; Protocol PRN Reason: Hypoglycemia Protocol Stop: 04/18/19 11:15 Guaifenesin/Dextromethorphan (Robitussin Cough-Chest Dm) 5 ml PO Q6H PRN PRN Reason: Cough Stop: 04/15/19 09:34 Last Admin: 03/18/19 07:48 Dose: 5 ml Documented by: Levofloxacin/Dextrose (Levaquin/D5w) 750 mg in 150 mls @ 100 mls/hr IV Q24H TERA; Protocol Stop: 03/24/19 18:59 Last Infusion: 03/22/19 20:25 Dose: Infused Documented by: Methylprednisolone 40 mg/ (Syringe) 0.64 mls @ 1.5 mls/min IV Q12H [facility] Stop: 04/20/19 21:59 Last Admin: 03/23/19 09:51 Dose: 1.5 mls/min Documented by: Insulin Aspart (Novolog Flexpen) 0 units SC ACHS [facility] Stop: 04/18/19 11:29 Last Admin: 03/23/19 12:36 Dose: 15 units Documented by: Insulin Glargine (Lantus Solostar Pen) 28 units SC BID [facility] Stop: 04/20/19 20:59 Last Admin: 03/23/19 08:20 Dose: 28 units Documented by: Levalbuterol HCl (Xopenex 1.25mg/3ml Neb) 1.25 mg NEB Q6R PRN PRN Reason: Shortness Of Breath Or Wheezing Stop: 04/16/19 19:59 Levothyroxine Sodium (Synthroid) 50 mcg PO DAILYBB [facility] Stop: 04/13/19 06:29 Last Admin: 03/23/19 06:36 Dose: 50 mcg Documented by: Lisinopril (Zestril) 10 mg PO QAM [facility] Stop: 04/13/19 08:59 Last Admin: 03/23/19 08:19 Dose: 10 mg Documented by: Magnesium Hydroxide (Milk Of Magnesia) 30 ml PO Q6H PRN PRN Reason: Constipation Stop: 04/12/19 15:55 Miscellaneous (Carbohydrates For Hypoglycemia) 15 - 30 gm PO UD PRN PRN Reason: Hypoglycemia Treatment Stop: 04/18/19 11:15 Ondansetron HCl (Zofran) 4 mg IV Q6H PRN PRN Reason: Nausea Stop: 04/12/19 15:55 Last Admin: 03/15/19 15:59 Dose: 4 mg Documented by: Pantoprazole Sodium (Protonix) 40 [facility] [place] Stop: 04/13/19 08:59 Last Admin: 03/23/19 08:19 Dose: 40 mg Documented by: Sertraline HCl (Zoloft) 100 mg PO [facility] Stop: 04/13/19 08:59 Last Admin: 03/23/19 08:19 Dose: 100 mg Documented by: Vitamin D (Vitamin D3) 2,000 units PO [facility] Stop: 04/12/19 20:59 Last Admin: 03/22/19 21:19 Dose: 2,000 units Documented by:
[2019-03-23] MEDS ORDERED: LEVALBUTEROL HCL 1.25 MG/3 ML NEB NEB PRN (11:49)
[2019-03-23] MEDS: LEVOFLOXACIN/D5W 750 MG/150 ML BAG IV SCH (18:53)
[2019-03-23] MEDS: CHOLECALCIFEROL 1,000 UNITS TAB PO SCH (20:37)
[2019-03-24] MEDS: LEVOTHYROXINE SODIUM 50 MCG TABLET PO SCH (06:29)
[2019-03-24] MEDS: PANTOprazole 40 MG TAB PO SCH (08:04)
[2019-03-24] MEDS: SERTRALINE HCL 100 MG TABLET PO SCH (08:04)
[2019-03-24] MEDS: FUROSEMIDE 20 MG TAB PO SCH (08:04)
[2019-03-24] MEDS: LISINOPRIL 10 MG TAB PO SCH (08:05)
[2019-03-24] MEDS: ENOXAPARIN INJ 40 MG/0.4 ML SYR SQ SCH (08:05)
[2019-03-24] MEDS: dilTIAZem HCL 120 MG CAPCR PO SCH (08:05)
[2019-03-24] MEDS: INSULIN ASPART 100 UNITS/ML 3 ML PEN SC SCH ×2 (08:55→12:36)
[2019-03-24] MEDS ORDERED: INSULIN GLARGINE SOLOSTAR 100 UNITS/ML 3 ML PEN SC SCH (09:00)
[2019-03-24] MEDS ORDERED: predniSONE 50 MG TAB PO SCH (09:00)
--- NOTE | 2019-03-24 14:57 | Discharge Summary ---
Date of Service March 24, 2019 Admission HPI Per Admitting Provider 73 y/o F c/o cough and SOB. Pt states she has been coughing and getting SOB with exertion only for the last 2 days. She has had decreased appetite for some time now, which she associates with her chemo. She does tolerate the PO she takes. She has intermittent diarrhea since starting her chemo as well. Pt noted a fever of 100.4 this AM, so came to the ED. Pt received IVF and abx in the ED and states she is feeling much improved. Pt denies chest pain, abd pain, n/v, LE pain or swelling. Admission Exam Per Admitting Provider Constitutional: WD/WN, vitals as above Eyes: normal visual campa by confrontation and + anicteric sclerae Neck: normal visual inspection and trachea midline Respiratory: normal respiratory effort; no respiratory distress Auscultation: + crackles (R base); no wheezes Cardiovascular: Rate/Rhythm: regular rate and regular rhythm Gastrointestinal (Abdomen): Inspection/Auscultation: abdomen not distended Percussion/Palpation: abdomen soft; abdomen nontender Musculoskeletal: Head/Neck/Chest: normocephalic and head atraumatic negative for edema, peripheral pulses intact Skin: no rashes, warm and dry Neurologic: awake; not confused Speech / Cognition: normal speech Psychiatric: A+Ox3, euthymic affect Principal Diagnosis Pneumonitis due to drug reaction, likely Taxol Discharge Exam Constitutional WD/WN, vitals as above Eyes PERRL, conjunctivae normal, anicteric sclerae ENMT external ear and nose normal, oropharynx normal Neck trachea midline, no thyromegaly Respiratory normal respiratory effort; no respiratory distress Auscultation: no crackles, no rales, no rhonchi and no wheezes Cardiovascular RRR, no murmur, no edema Gastrointestinal (Abdomen) normal bowel sounds, soft, nontender, no hepatosplenomegaly Musculoskeletal no cyanosis or clubbing, extremities motor strength 5/5 Skin no rashes, warm and dry Neurologic patellar DTR's 2+ bilat, sensation intact and PERRL, EOMI, accommodation nl, no face palsy, no dysarthria Psychiatric A+Ox3, euthymic affect Lymphatic no cervical or axillary lymphadenopathy Discharge Data Allergies Allergy/AdvReac Type Severity Reaction Status Date / Time Penicillins Allergy Intermediate RASH Unverified 03/13/19 11:42 shellfish derived Allergy Mild HIVES RASH Unverified 03/13/19 11:42 Consultations 03/13/19 12:53 ED Decision to Admit Stat 03/13/19 15:56 Consult Case Management - Discharge Planning Routine 03/17/19 17:58 Consult Pulmonology Routine 03/20/19 14:03 Consult Infectious Diseases Routine 03/22/19 08:36 Consult Thoracic Surgery Routine Ordered Studies 03/18/19 14:28 CT angio chest PE protocol Routine Hospital Course (1) Interstitial pneumonitis: likely due to recent treatment with Taxol responded well to Steroids CXR on 03/23 with clearing of upper lobes exam on 03/24 with no crackles in upper or lower lobes, improving daily will d/c home on prolonged taper of Prednisone follow up with PCP in one week follow up with Dr. Jain in several weeks (2) PNA (pneumonia): With cough and shortness of breath developing several days prior to admission, no fevers CXR as noted with diffuse interstitial and alveolar opacities bilaterally CT angiogram of chest on 03/19 with no PE, with trace left pleural effusion, mild adenopathy, and bilateral interstitial and groundglass pulmonary opacities. Radiologist interpretation is: "Likely diagnostic considerations include multifocal pneumonia, drug reaction, or atypical appearance of pulmonary edema." PNA versus question of chemotherapy-induced pneumonitis from Taxol completed 7 days of antibiotics, initially IV and then converted to Levaquin PO (3) Anemia: Hemoglobin stable around 8-9 which is around her baseline after review of her blood work from several weeks ago at [facility]. -Is likely antineoplastic related anemia but is with slow recovery-last chemo 03/02 -Follow CBC periodically -transfuse if < 7.5 Hb > 8 (4) Breast cancer: Just finished chemo with Taxol and cyclophosphamide Has bilateral breast cancer Follow[place] with [place]. Jordan [place] [facility] [place]- colleague spoke with her on the phone on Saturday-phone number [phone]-she questions if PCP or fungal pneumonia as well, but agrees that it could very well be Taxol-induced pneumonitis Current plan is b/l mastectomy in March, date is TBD, with radiation afterwards follow up with Dr. Jodran on 03/26 (5) Hypothyroid: continue home levothyroxine 50 mg daily TSH was normal at 3 in the last 6 months (6) HTN (hypertension): Blood pressure is mildly elevated but also could be secondary to corticosteroid high-dose Pt with lisinopril increased the week prior to admission from 10mg to 20mg, however she had low blood pressures on admission and the dose was lowered back to 10 mg here Monitor with 10mg for now--stable -Continue diltiazem 120 mg p.o. once daily (7) GERD (gastroesophageal reflux disease): continue PPI (8) Depression: Stable -Continue home sertraline 100 mg daily (9) Acute respiratory failure with hypoxia: Requiring oxygen as above for pneumonia or chemotherapy-induced pneumonitis Weaned down again to 2 L which is continued improvement -Continue to wean as tolerated to keep pulse ox greater than 90% Ambulation encouraged today -Flutter valve two step on day of discharge indicated that she required 2 liters on exertion only home oxygen arranged by case management (10) Prediabetes: Hemoglobin A1c 6.1% back in the fall 2017 and is now only 6.4% With severe hyperglycemia here secondary to corticosteroid use -Treating for hyperglycemia as below (11) Hyperglycemia: With blood sugars persistently in the 200s and 300s secondary to corticosteroids despite escalation of insulin therapy-finally now improving after reduction in IV SOlu Medrol dose and significant escalation of insulin therapy Patient reports sugars have been in the 200s with taking steroids with her chemotherapy in the last couple of months.She does not take anything at home for DM -continue on insulin at home while on Prednisone use Basaglar since it is covered by patient's insurance will decrease long acting insulin by 5 with every decrease in Prednisone see specific discharge instructions (12) Metabolic acidosis: Metabolic acidosis with bicarb of 18 and anion gap 12 associated with hyperglycemia Treated with IV fluids on 03/19 -Now resolved -Follow BMP -Continue to treat hyperglycemia (13) DVT prophylaxis: Lovenox for DVT proph Total Time Total Time Spent Total Time Spent (In Minutes): 40 minutes Total Time Includes: Examination of the Patient, Discharge Planning, Medication Reconciliation, Communication With Other Providers and Other (spoke with at the bedside) Discharge Plan Discharge Items Patient Disposition: Home - Self-Care Reason For Visit: FEVER Discharge Diagnosis: Drug induced pneumonitis Condition: Good Discharge Goals: Improve disease control and Improve function Activity: Resume your previous activity Non-emergency contact: Primary Care Provider and Oncologist Call non-emergency contact if: you have any medication questions, your symptoms worsen and you have a fever Follow-up/Referrals: Armin Mosher MD [Primary Care Provider] - Diet: Regular Addtl Provider Instructions: Medications: - PREDNISONE: will gradually taper you down from 50mg, see below, taper will take 20 days - LANTUS: long acting insulin to help control sugars while on higher doses of Prednisone, see below your insurance substituted Basaglar for Lantus, this is fine, follow same instructions - LEVALBUTEROL: inhaler, can take two puffs every 6 hours as needed for s hortness of breath - ROBITUSSIN: can use as needed for cough suppression, help you rest if needed Dyspnea, pneumonitis most likely etiology is the Taxol that you completed recently procalcitonin was normal which argued against bacterial infection you did complete 7 days of antibiotics, no further antibiotics needed greatest response came to steroids will continue on Prednisone 50mg daily with gradual taper, decrease by 10mg every 4 days until completed recommend close follow up with primary care physician in a week and then pulmonary, Dr. Jain, in 2-3 weeks at this time you are requiring some oxygen on exertion, will arrange for this to be delivered today use the oxygen when you leave the house and when walking around the house Hyperglycemia sugars markedly elevated with steroids, responding to Lantus recommend that you use the Lantus at home while on high doses of Prednisone, below is the Lantus dose that correlates with Prednisone dose Prednisone 50mg = Lantus 20 units Prednisone 40mg = Lantus 15 units Prednisone 30mg = Lantus 10 units no Lantus needed once Prednisone is at 20mg Breast cancer: please follow up for your appointments at [facility] on , will send copy of discharge summary to your oncologist Prescriptions: New prednisone 10 mg tablet 50 mg PO UD 20 Days Qty: 60 RF: 0 Lantus Solostar U-100 Insulin 100 unit/mL (3 mL) Insulin Pen 20 unit SC UD 12 Days Qty: 2.4 RF: 0 dextromethorphan-guaifenesin 10-100 mg/5 mL Syrup 5 ml PO Q6H PRN (Reason: cough) 14 Days Qty: 118 RF: 0 levalbuterol tartrate 45 mcg/actuation HFA aerosol inhaler 2 puffs INH Q6H PRN (Reason: shortness of breath) Qty: 15 RF: 1 Continued sertraline 100 mg tablet 100 mg PO QAM RF: 0 acetaminophen [Tylenol Extra Strength] 500 mg Tablet 500 mg PO Q6H PRN (Reason: Pain) RF: 0 omeprazole 10 mg capsule,delayed release(DR/EC) 10 mg PO QAM RF: 0 levothyroxine 50 mcg tablet 50 mcg PO QAM RF: 0 lisinopril 10 mg tablet 10 mg PO QAM RF: 0 diltiazem HCl [Cartia XT] 120 mg capsule,extended release 24hr 120 mg PO QAM RF: 0 cholecalciferol (vitamin D3) [Vitamin D3] 2,000 unit Capsule 2,000 unit PO HS RF: 0 cyclophosphamide 1 gram Recon Soln IV UD RF: 0 paclitaxel 6 mg/mL Concentrate IV UD RF: 0 Discontinued dexamethasone 4 mg tablet 8 mg PO UD RF: 0 Stand-Alone Forms: [facility]/Other Patient Handouts: Prediabetes, Diabetes Meal Planning Discharge Orders: Discharge Order (Routine); Ordered 03/24/19 Ordered By: Abundio Moulton Admission Data Admit Date/Time: 03/13/19 13:30 Attending Provider: Abundio Moulton Admit Provider: Melba Bradford Primary Care Provider: Armin Mosher V. Other Providers: Melba Bradford ; James Jain ; Maryann Vides ; Jasson Reddy Service: Medical Other Interventions: Discharge Summary Assessment (RN) Last Done: 03/24/19 13:37 DC Date/Time DO NOT enter until pt leaves facility: 03/24/19 14:49
[2019-03-26 13:49] LABS: Aspergillus Ag Index 0.04 (<0.50); Aspergillus Antigen, Serum Not Detected (Not Detected); Aspergillus Flavus Negative (Negative); Aspergillus Niger Negative (Negative); Legionella pneumoph IgM, IFA <1:256 TITER; Mycoplasma pneumoniae Ab, IgG <=0.90 (<=0.90); Mycoplasma pneumoniae Ab, IgM 260 U/mL (<770)
[2019-03-27 14:34] LABS: LSP % Cells Analyzed CD4 41 % (30-61); LSP Absolute Ct CD4 99 cells/uL (490-1740); LSP Lymphocytes Absolute 241 cells/uL (850-3900)
[2019-03-27 15:34] LABS: Saccharopolyspora rectivir Ab Not detected (Not detected)
== END 2019-03-24 14:49 | disposition home or self-care (01) | DRG 193 ==
LOC: ED 08:08 → SUATTDRO 13:30 → 4E 13:30
DX: K21.9 Gastro-esophageal reflux disease without esophagitis; E03.9 Hypothyroidism, unspecified; R73.9 Hyperglycemia, unspecified; J18.9 Pneumonia, unspecified organism; Z88.0 Allergy status to penicillin; Z82.3 Family history of stroke; J96.01 Acute respiratory failure with hypoxia; F32.9 Major depressive disorder, single episode, unspecified; Z85.3 Personal history of malignant neoplasm of breast; Z91.013 Allergy to seafood; R73.03 Prediabetes; D64.9 Anemia, unspecified; E87.2 Acidosis; I10 Essential (primary) hypertension

== ENCOUNTER 2019-06-08 04:27 | Inpatient (IN) ==
[2019-06-08] MEDS ORDERED: LABETALOL HCL IV 5 MG/ML 20ML IV STA ×4 (04:36→08:32)
[2019-06-08] MEDS ORDERED: fentaNYL citrate 100 MCG/2 ML VIAL IV STA ×3 (04:36→07:57)
--- NOTE | 2019-06-08 04:50 | Emergency Department Note ---
ED Provider Note Name: Aaliyah Tadeo Age: 74 F Arrives Via: POV Informant: Pt, CC: Headache HPI: 74 female arrives for evaluation of headache. Patient notes that over the last month worsening headache. She has been managing it at home with Tylenol and motrin. She has been following with PCP as well as visit to ED for this last week. Notes that she has bilateral mastectomy last week. Has been doing w ell with lester drains and notes minimal pain from this. She admits bilateral lymph node removals. She states headache is bilateral frontal, radiates to right side of head. No fevers, chills, photophobia, nausea, vomiting, neck pain. Denies falls, injuries. Has had no shortness of breath, chest pain, abdominal pain, leg swelling, rashes, nor other symptoms. Normal BM and UOP. She does note mild dehydration as hasn't been eating well. She notes that BP has been quite elevated over the last month with issues keeping under control. No medications prior to arrival other then tylenol this evening. Nothing makes headache/bp better nor worse. ROS: See above HPI for pertinent positives & negatives. A total of 10 systems reviewed and were otherwise negative. Past Medical History: Depression, GERD, Hypothyroid, PNA, Breast CA, HTN Past Surgical History: Lumbar Surgery Family History: Father with CVA, Mother with melanoma Social History: Nonsmoker, retired, , occasional etoh Home Medications: Extensive, see below Allergies PNC, Shellfish, Darvon Physical: Vitals: BP 201/104, R 16, T 36.6, O2 99%, P 86 Exam: GENERAL: Patient is very uncomfortable appearing and in moderate distress. Dehydrated appearing EYES: No scleral icterus, unremarkable pupils. ENT: Bilateral clear canals with normal TMs. Mucous membranes dry, no nasal congestion. NECK: No masses appreciated, no meningismus, trachea is midline. CHEST: S/P recent bilateral mastectomy with LESTER drains with sero-sanguinous fluid RESPIRATORY: No dyspnea. Clear to auscultation and equal bilaterally. No wheeze, no rhonchi. CARDIOVASCULAR: Regular rate and rhythm. No murmurs, rubs, gallops appreciated. GASTROINTESTINAL: Abdomen soft, non-tender, no peritonitis. Bowel sounds positive. No masses appreciated. BACK: No midline tenderness, no CVA tenderness EXTREMITIES: Normal motion all extremities, no cyanosis, no edema. NEUROLOGIC: Alert and oriented, no acute motor or sensory deficits, no focal weakness, cranial nerves grossly intact. SKIN: No rash, no jaundice, no diaphoresis. ED Course: Prior Medical Record, Triage/Nursing Notes, Medications, Allergies reviewed by Me Vital Signs: reviewed and remarkable for HTN Labs: Reviewed and remarkable for wnl Interventions: saline lock, fentanyl 50mcg IV, Labetalol 10mg IV x 2, Labetalol 20mg IV, Hydralazine 10mg IV Imaging: [facility] Radiologist interpretation reviewed by me: CT head negative acute findings EKG: Per My Interpretation: Indication HTN: NSR 86 bpm qtc 488, no ectopy nor ischemia. similar to 8. Consults: Dr William INIGUEZ Hospitalist Reassessments/Times: Multiple. Gradually improving headache though BP still significantly elevated. Blood pressure: Elevated - Referred to Hospitalist Disposition: Hospitalization Differentials: Benign Hypertension, Hypertensive Urgency/Emergency, Cardiovascular Pathology, Endocrine, Metabolic/Electrolyte, Renal Disease, End- organ Damage, amongst other pathologies entertained. Medical Decision Makin yr old female with gradually increasing headache over the last month who acute worsened this evening. Associated with quite elevated HTN. No neuro deficits, cp, sob, nor other symptoms. CT head done given HTN which was negative for acute findings. EKG OK. Labs OK. BP did improve slightly and headache mildly better, but then BP started heading back up. Given several more rounds of IV anti-hypertensives. Stable, but she appears to have acute hypertensive emergency. Symptoms not consistent with SAH, stroke, meningitis, nor dissection. Seems unlikely thrombosis related. Given persistent of htn clealy will need to come in for further management/treatment. Impression: Hypertensive Emergency Headache Critical Care Time: I have personally spent greater than 30 minutes of critical care time in the direct management of this patient. Hypertensive emergency requiring multiple rounds IV antihypertensives. This was a life/limb threatening event. This includes time spent evaluating patient, direct bedside care, chart review, placing orders, interpretation of diagnostic studies, discussion with consultants, patient, and family members, as well as other required patient management activities. This 30 minutes is in excess of all separately billable procedures. Impression & Plan Hypertensive emergency, Headache Past Med/Surg History Medical History Depression (Chronic) GERD (gastroesophageal reflux disease) (Chronic) Hypothyroid (Chronic) Breast cancer (Resolved) HTN (hypertension) (Resolved) PNA (pneumonia) (Resolved) Surgical History H/O mastectomy (Chronic) Bilateral History of lumbar laminectomy (Resolved) Family History Father Stroke Prostate cancer Mother Melanoma Sister Lung disease Brother Arthritis Social History Preferred Language: Citizen Of [place] Communication Ability: Effective Marble Cleaner Required: No Beliefs That Will Affect Care: None Current Living Situation: Spouse Feels Safe at Home: Yes Smoking Status: Never smoker Second Hand Exposure: No ; Hx Alcohol Use: Yes (occasional prior to cancer, dx but none now) Hx Substance Use: No Results & Data Vital Signs Vital Signs - 24 hr 06/08/19 04:29 06/08/19 05:06 06/08/19 05:55 Temperature 36.6 C Temperature Source Oral Sepsis Recent Fever Within 48 Hours No Sepsis New/Unexplained Change in Mental Status No Sepsis Action Taken by Nursing No Action Required Pulse Rate [Right Finger] 81 76 Pulse Rhythm [Right Finger] Regular Regular Pulse Strength [Right Finger] Normal Normal Respiratory Rate 16 13 18 Respiratory Effort / Characteristics Non-Labored Non-Labored Non-Labored Respiratory Depth Normal Normal Normal Respiratory Pattern Regular Regular Regular Blood Pressure 201/104 H Blood Pressure [Right Arm] 201/117 H 197/104 H Blood Pressure Mean 136 Blood Pressure Mean [Right Arm] 145 135 Blood Pressure Position Lying Blood Pressure Position [Right Arm] Lying Lying Pulse Oximetry 99 99 94 Oxygen Delivery Method Room Air Room Air Room Air 06/08/19 06:13 06/08/19 06:31 Temperature Temperature Source Sepsis Recent Fever Within 48 Hours Sepsis New/Unexplained Change in Mental Status Sepsis Action Taken by Nursing Pulse Rate [Right Finger] 79 75 Pulse Rhythm [Right Finger] Regular Pulse Strength [Right Finger] Normal Respiratory Rate 18 18 Respiratory Effort / Characteristics Non-Labored Non-Labored Respiratory Depth Normal Normal Respiratory Pattern Regular Regular Blood Pressure Blood Pressure [Right Arm] 191/114 H 208/99 H Blood Pressure Mean Blood Pressure Mean [Right Arm] 139 135 Blood Pressure Position Blood Pressure Position [Right Arm] Lying Lying Pulse Oximetry 97 97 Oxygen Delivery Method Room Air Room Air Laboratory Data Result diagrams: 06/08/19 05:10 06/08/19 05:10 Lab Results 06/08/19 06/08/19 06/08/19 Range/Units 04:53 05:10 05:10 WBC (4.8-10.8) K/uL RBC (4.2-5.4) M/uL Hgb (12.0-16.0) g/dL Hct (37-47) % MCV (80-100) fL MCH (25-34) pg MCHC (32-36) g/dL RDW Std Deviation (36.4-46.3) fL RDW Coeff of Catrachito (11.5-14.5) % Plt Count (130-400) K/uL MPV (7.4-10.4) fL Immature Gran % (Auto) % Neut % (Auto) % Lymph % (Auto) % Simpson % (Auto) % Eos % (Auto) % Baso % (Auto) % Immature Gran # (Auto) (0.00-0.02) K/uL Neut # (Auto) (1.4-6.5) K/uL Lymph # (Auto) (1.2-3.4) K/uL Simpson # (Auto) (0.11-0.59) K/uL Eos # (Auto) (0-0.5) K/uL Baso # (Auto) (0-0.2) K/uL PT 10.3 (9.0-12.0) Seconds INR 1.0 (0.9-1.1) Sodium 141 (136-145) mmol/L Potassium 3.0 L (3.5-5.1) mmol/L Chloride 104 (98-107) mmol/L Carbon Dioxide 23 (21-32) mmol/L Anion Gap 14.0 H (3-11) BUN 15 (7-18) mg/dl Creatinine 0.81 (0.6-1.2) mg/dl Est Cr Clr Drug Dosing 59.7 ml/min Est GFR ( Amer) 83.5 Est GFR (Non-Af Amer) 72.1 BUN/Creatinine Ratio 18.1 (10-20) Glucose 128 H (70-99) mg/dl Calcium 9.0 (8.5-10.1) mg/dl Magnesium 1.9 (1.8-2.4) mg/dl Total Bilirubin 0.5 (0.2-1) mg/dl Direct Bilirubin < 0.1 (0-0.2) mg/dl AST 14 L (15-37) U/L ALT 16 (12-78) U/L Alkaline Phosphatase 50 (45-117) U/L Total Creatine Kinase 33 (26-192) U/L Troponin I < 0.015 (0-0.045) ng/ml Total Protein 7.2 (6.4-8.2) gm/dl Albumin 3.5 (3.4-5.0) gm/dl TSH 1.240 (0.300-4.500) uIu/ml Acetaminophen 44 H (10-30) ug/ml 06/08/19 Range/Units 05:10 WBC 7.08 (4.8-10.8) K/uL RBC 4.43 (4.2-5.4) M/uL Hgb 12.1 (12.0-16.0) g/dL Hct 36.1 L (37-47) % MCV 81.5 (80-100) fL MCH 27.3 (25-34) pg MCHC 33.5 (32-36) g/dL RDW Std Deviation 44.9 (36.4-46.3) fL RDW Coeff of Catrachito 15.1 H (11.5-14.5) % Plt Count 254 (130-400) K/uL MPV 9.1 (7.4-10.4) fL Immature Gran % (Auto) 0.1 % Neut % (Auto) 72.5 % Lymph % (Auto) 19.5 % Simpson % (Auto) 5.9 % Eos % (Auto) 1.7 % Baso % (Auto) 0.3 % Immature Gran # (Auto) 0.01 (0.00-0.02) K/uL Neut # (Auto) 5.13 (1.4-6.5) K/uL Lymph # (Auto) 1.38 (1.2-3.4) K/uL Simpson # (Auto) 0.42 (0.11-0.59) K/uL Eos # (Auto) 0.12 (0-0.5) K/uL Baso # (Auto) 0.02 (0-0.2) K/uL PT (9.0-12.0) Seconds INR (0.9-1.1) Sodium (136-145) mmol/L Potassium (3.5-5.1) mmol/L Chloride (98-107) mmol/L Carbon Dioxide (21-32) mmol/L Anion Gap (3-11) BUN (7-18) mg/dl Creatinine (0.6-1.2) mg/dl Est Cr Clr Drug Dosing ml/min Est GFR ( Amer) Est GFR (Non-Af Amer) BUN/Creatinine Ratio (10-20) Glucose (70-99) mg/dl Calcium (8.5-10.1) mg/dl Magnesium (1.8-2.4) mg/dl Total Bilirubin (0.2-1) mg/dl Direct Bilirubin (0-0.2) mg/dl AST (15-37) U/L ALT (12-78) U/L Alkaline Phosphatase (45-117) U/L Total Creatine Kinase (26-192) U/L Troponin I (0-0.045) ng/ml Total Protein (6.4-8.2) gm/dl Albumin (3.4-5.0) gm/dl TSH (0.300-4.500) uIu/ml Acetaminophen (10-30) ug/ml Administered Medications Discontinued Medications Fentanyl Citrate (Fentanyl Citrate) 50 mcg IV NOW STA Stop: 06/08/19 04:37 Last Admin: 06/08/19 04:54 Dose: 50 mcg Documented by: [id number] Fentanyl Citrate (Fentanyl Citrate) 50 mcg IV NOW STA Stop: 06/08/19 05:53 Last Admin: 06/08/19 06:14 Dose: Not Given Documented by: [id number] Hydralazine HCl (Hydralazine Hcl) 10 mg IV NOW STA Stop: 06/08/19 06:34 Last Admin: 06/08/19 06:44 Dose: 10 mg Documented by: [id number] Labetalol HCl (Normodyne) 10 mg IV NOW STA Stop: 06/08/19 04:37 Last Admin: 06/08/19 04:54 Dose: 10 mg Documented by: [id number] Cosigned by: [id number] Labetalol HCl (Normodyne) 10 mg IV NOW STA Stop: 06/08/19 05:29 Last Admin: 06/08/19 05:49 Dose: 10 mg Documented by: [id number] Cosigned by: [id number] Labetalol HCl (Normodyne) 20 mg IV NOW STA Stop: 06/08/19 05:51 Last Admin: 06/08/19 06:03 Dose: 20 mg Documented by: [id number] Cosigned by: [id number] Discharge Plan Visit Data Chief Complaint: Headache ED Provider: Jhonny Solorzano Discharge Problem: Hypertensive emergency, Headache Forms Stand Alone Forms: [facility] Prescriptions Prescriptions: No Action omeprazole 10 mg capsule,delayed release(DR/EC) 10 mg PO DAILY Qty: 90 RF: 1 anastrozole [Arimidex] 1 mg tablet 1 mg PO DAILY RF: 0 cyclobenzaprine 5 mg tablet 5 mg PO HS PRN (Reason: muscle spasm) Qty: 10 RF: 0 metoprolol succinate [Toprol XL] 25 mg tablet extended release 24 hr 12.5 mg PO DAILY Qty: 15 RF: 1 hydroxyzine HCl 10 mg tablet 10 mg PO HS PRN (Reason: itching) Qty: 15 RF: 0 sertraline 100 mg tablet 100 mg PO QAM RF: 0 melatonin 1 mg tablet 1 mg PO HS PRN (Reason: Sleep) RF: 0 acetaminophen [Tylenol Extra Strength] 500 mg Tablet 500 mg PO Q6H PRN (Reason: Pain) RF: 0 levothyroxine 50 mcg tablet 50 mcg PO QAM RF: 0 cholecalciferol (vitamin D3) [Vitamin D3] 2,000 unit Capsule 2,000 unit PO HS RF: 0 levalbuterol tartrate 45 mcg/actuation HFA aerosol inhaler 2 puffs INH Q6H PRN (Reason: shortness of breath) Qty: 15 RF: 1 diltiazem HCl [Cartia XT] 240 mg capsule,extended release 24hr 240 mg PO QAM RF: 0 lisinopril 10 mg tablet 10 mg PO DAILY RF: 0 Discharge Problem: Headache Qualifiers: Headache type: unspecified Headache chronicity pattern: acute headache Intractability: not intractable Qualified Code(s): R51 - Headache
[2019-06-08 05:15] LABS: Prothrombin Time 10.3 Seconds (9.0-12.0)
[2019-06-08 05:20] LABS: Basophils # (auto) 0.02 K/uL (0-0.2); Basophils % (auto) 0.3 %; Eosinophils # (auto) 0.12 K/uL (0-0.5); Eosinophils % (auto) 1.7 %; Hematocrit (blood only) 36.1 % (37-47); Hemoglobin 12.1 g/dL (12.0-16.0); Immature Granulocytes # (auto) 0.01 K/uL (0.00-0.02); Immature Granulocytes % (auto) 0.1 %; Lymphocytes # (auto) 1.38 K/uL (1.2-3.4); Lymphocytes % (auto) 19.5 %; Mean Corpuscular Hgb Conc 33.5 g/dL (32-36); Mean Corpuscular Volume 81.5 fL (80-100); Mean Platelet Volume 9.1 fL (7.4-10.4); Monocytes # (auto) 0.42 K/uL (0.11-0.59); Monocytes % (auto) 5.9 %; Neutrophils # (auto) 5.13 K/uL (1.4-6.5); Neutrophils % (auto) 72.5 %; Platelet Count 254 K/uL (130-400); RDW Coefficient of Variation 15.1 % (11.5-14.5); RDW Standard Deviation 44.9 fL (36.4-46.3); Red Blood Count 4.43 M/uL (4.2-5.4); White Blood Count 7.08 K/uL (4.8-10.8)
[2019-06-08 05:40] LABS: Alanine Aminotransferase 16 U/L (12-78); Albumin Level 3.5 gm/dl (3.4-5.0); Aspartate Aminotransferase 14 U/L (15-37); BUN Creatinine Ratio 18.1 (10-20); Blood Urea Nitrogen 15 mg/dl (7-18); Carbon Dioxide 23 mmol/L (21-32); Chloride 104 mmol/L (98-107); Creatinine Clr Calc Pharmacy 59.7 ml/min; Est GFR (African American) 83.5; Est GFR (Non-African American) 72.1; Glucose 128 mg/dl (70-99); Magnesium 1.9 mg/dl (1.8-2.4); Sodium 141 mmol/L (136-145)
[2019-06-08 05:51] LABS: Alkaline Phosphatase 50 U/L (45-117); Bilirubin Direct < 0.1 mg/dl (0-0.2); Bilirubin,Total 0.5 mg/dl (0.2-1); Creatine Kinase 33 U/L (26-192); Total Protein 7.2 gm/dl (6.4-8.2); Troponin I < 0.015 ng/ml (0-0.045)
[2019-06-08] MEDS ORDERED: HydrALAZINE HCL 20 MG/ML VIAL IV STA (06:33)
[2019-06-08] MEDS ORDERED: LISINOPRIL 10 MG TAB PO STA (07:17)
[2019-06-08] MEDS ORDERED: POTASSIUM CHLORIDE 20 MEQ TABCR PO STA ×2 (07:17→09:58)
--- NOTE | 2019-06-08 07:32 | CT Scan Report ---
CT SCAN OF THE BRAIN WITHOUT IV CONTRAST CLINICAL HISTORY: Headache. COMPARISON STUDY: No priors. TECHNIQUE: Unenhanced axial CT scan of the brain is performed from the vertex to the skull base. A do se lowering technique was utilized adhering to the principles of ALARA. The examination is modestly d egraded by motion artifact. CT DOSE: 537.48 mGy.cm FINDINGS: Brain parenchyma: There are age-related involutional changes noting moderate subcortical and periven tricular microangiopathic change. There is no hemorrhage, mass effect, or evidence of acute territori al ischemia by CT criteria. Rose-white matter differentiation is preserved. No extra-axial fluid aide ection is seen. Ventricles, sulci, cisterns: Prominent secondary to involutional change. Intracranial vasculature: There is atherosclerotic calcification of the cavernous carotid and vertebr al arteries. Calvarium: Unremarkable. Sinuses and mastoids: The visualized paranasal sinuses are clear. The mastoid air cells are well pneu matized. Orbits: The bony orbits are grossly intact. There are bilateral ocular lens implants. IMPRESSION: There is no hemorrhage, mass effect, or evidence of acute territorial ischemia by CT efrem smith. Electronically signed by: Brenden Tello M.D. 06/08/2019 7:31 AM
[2019-06-08] MEDS ORDERED: LABETALOL HCL IV 5 MG/ML 20ML IV ONE ×2 (08:36→08:37)
--- NOTE | 2019-06-08 08:56 | History & Physical Report ---
Date of Service June 08, 2019 Assessment & Plan (1) Headache: Patient presents with intractable, severe frontal and right-sided headache in the setting of hypertensive emergency. CT noncontrast of the head is negative Nonfocal neurologic exam, cranial nerves are intact, mentating well -Headaches have been going on for several weeks but much worse since last night -Work on control of blood pressure as below -IV morphine as needed for pain, acetaminophen as needed for pain -Check CT angiogram of the head and neck given recent fall and did hit the back of her head several weeks ago-rule out vertebral artery dissection (2) Hypertensive emergency: Blood pressures severely elevated upon admission with intractable headache as above No other evidence of end organ damage-no renal failure, no chest pain, troponin is negative. ECG without ischemic changes Blood pressure was 224/97, 201/117 upon admission In the ER, received a total of labetalol 40 mg IV, hydralazine 10 mg IV x1, and her home p.o. diltiazem 240 mg, lisinopril 10 mg, with minimal improvement -Admit to telemetry -will give another IV labetalol 40 mg IV x1 now, IV hydralazine 10 mg every 6 hours as needed -Increase home metoprolol to 25 mg once daily, increase lisinopril to 40 mg once daily, continue home p.o. diltiazem -If blood pressures not improving and headache not improving, start nicardipine drip -Patient's requests consultation with cardiology-appreciate recommendations, discussed the case with cardiology -Check renal artery duplex -Would discontinue any home NSAIDs-she has been taking a lot of ibuprofen lately since her mastectomy 1 week ago (3) HTN (hypertension), benign: With hypertensive emergency as above -Meds as above -Follow blood pressures (4) H/O mastectomy: With recent bilateral mastectomy the week prior to admission Currently with TOBI drains in place bilaterally, Steri-Strips over wounds-no evidence of infection -Has follow-up planned with her surgeon for later this week. (5) Depression: Stable -Continue home sertraline-review of outpatient record shows that the dose has recently been increased to 150 mg daily as of 06/06 (6) GERD (gastroesophageal reflux disease): Stable -Continue PPI (7) Hypothyroid: TSH here is normal at 1.24 -Continue home levothyroxine which was recently lowered in dose to 25 mcg daily down from 50 (8) Breast cancer: Status post chemotherapy, XRT, and now bilateral mastectomy 1 week ago -Continue anastrozole -Continue outpatient follow-up with oncology and breast surgeon (9) Prediabetes: Hemoglobin A1c 6.2% in 03/2019 -No need for Accu-Cheks or ADA diet (10) DVT prophylaxis: SCDs, MELISA hose No chemical prophylaxis at this time until blood pressure under better control Disposition-admit to PCU, if starts Cardene drip, can be made a full inpatient admission History of Present Illness Chief Complaint: Headache, elevated BP Primary Care Provider: Armin Mosher MD This pt is a 74 yo female with a h/o breast CA s/p chemo/XRT and recent mastectomy one week ago, HTN, prediabetes, hypothyroidism, GERD, depression, who presents with severe frontal and right sided headache and hypertensive emergency. Denies nausea or vomiting, no chest pain or SOB, no abdominal pain. She reports having elevated BPs over the last month or so and recently had her lisinopril dose increased to 40mg about 2 weeks ago, her diltiazem dose increased to 240mg one month ago, and then was in the ER on 05/30 with a BP of 200 systolic and had Toprol XL 12.5mg daily added on. She reports having headaches off and on for a week and has been taking ibuprofen and tylenol since her mastectomies last week. She then woke up last night with a severe headache at 0300. It is a 10/10, located frontally and on right side of face anterior to her right ear. Denies any associated vision changes, no numbness/tingling/weakness, no speech changes or slurred speech. BP in the ER initially was 201/117 and then was 224/97. She was given IV labetalol 40mg x 1, hydralazine 10mg IV x 1, and a head CT noncon was performed and was negative. BPs did come down initially to 180s systolic and headache did improve just s lightly, then BPs came back up. Troponin negative, ECG without ischemic changes. K+ low at 3.0 and replaced.Renal function normal. Allergies Allergy/AdvReac Type Severity Reaction Status Date / Time Penicillins Allergy Intermediate RASH Verified 06/08/19 05:54 shellfish derived Allergy Mild HIVES RASH Verified 06/08/19 05:54 propoxyphene [From Darvon] AdvReac Unknown Verified 06/08/19 05:54 Home Medications Home Medications Medication Instructions Recorded Confirmed Type acetaminophen [Tylenol Extra 500 mg PO Q6H PRN 03/13/19 06/08/19 History Strength] cholecalciferol (vitamin D3) 2,000 unit PO HS 03/13/19 06/08/19 History [Vitamin D3] levothyroxine 25 mcg PO QAM 03/13/19 06/08/19 History levalbuterol tartrate 2 puffs INH Q6H PRN #15 gm 03/24/19 06/08/19 Rx melatonin 1 mg tablet 1 mg PO HS PRN tab 03/31/19 06/08/19 History anastrozole 1 mg tablet 1 mg PO DAILY 05/18/19 06/08/19 History cyclobenzaprine 5 mg tablet 5 mg PO HS PRN #10 tab 05/18/19 06/08/19 Rx diltiazem HCl [Cartia XT] 240 mg PO QAM 05/30/19 06/08/19 History omeprazole 10 mg capsule,delayed 10 mg PO DAILY #90 cap 06/05/19 06/08/19 Rx release hydroxyzine HCl 10 mg tablet 10 mg PO HS PRN #15 tab 06/06/19 06/08/19 Rx metoprolol succinate ER 25 mg 12.5 mg PO DAILY #15 tab 06/06/19 06/08/19 Rx tablet,extended release 24 hr sertraline 100 mg tablet 150 mg PO QAM tab 06/06/19 06/08/19 History lisinopril 30 mg PO DAILY 06/08/19 06/08/19 History Past Med/Surg History Medical History Depression (Chronic) GERD (gastroesophageal reflux disease) (Chronic) Hypothyroid (Chronic) Breast cancer HTN (hypertension), benign Prediabetes Breast cancer (Resolved) HTN (hypertension) (Resolved) PNA (pneumonia) (Resolved) Surgical History H/O mastectomy (Chronic) Bilateral History of lumbar laminectomy (Resolved) Family History Father Stroke Prostate cancer Mother Melanoma Sister Lung disease Brother Arthritis Social History Preferred Language: Yi Communication Ability: Effective 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 Beliefs That Will Affect Care: None Current Living Situation: Spouse Feels Safe at Home: Yes Smoking Status: Never smoker Second Hand Exposure: No ; Hx Alcohol Use: Yes (occasional prior to cancer, dx but none now) Hx Substance Use: No Review of Systems Review of Systems: All systems reviewed & are unremarkable except as noted in HPI & below (Denies neck pain or stiffness, denies photophobia or phonophobia, no fevers) Had fall approximately 3 weeks ago and has a left radius fracture, no current pain Physical Exam Constitutional: well developed and + ill appearing (Lying on the bed, moaning with pain); no acute distress Eyes: PERRL, conjunctivae normal, anicteric sclerae EOM intact bilaterally ENMT: external ear and nose normal, oropharynx normal Ears: no hearing impairment, no external ear abnormality, no EAC abnormality and no TM abnormality Nose: no external nose abnormality and no nasal discharge Neck: trachea midline, no thyromegaly Respiratory: normal respiratory effort, lungs clear to auscultation Cardiovascular: RRR, no murmur, no edema Chest (Breasts): Chest: + abnormal inspection of chest (Evidence of bilateral recent mastectomy, Steri-Strips in place, periwound ecchymosis, no erythema, TOBI drains in place draining serosanguineous fluid) Gastrointestinal (Abdomen): normal bowel sounds, soft, nontender, no hepatosplenomegaly Musculoskeletal: Extremities: + extremities abnormal to inspection (Left forearm with hard cast with wrist splint in place), no cyanosis and no clubbing Skin: no rashes, warm and dry Neurologic: PERRL, EOMI, accommodation nl, no face palsy, no dysarthria CN's II-XI intact bilaterally, moves all extremities and awake; no focal motor deficits and not confused Motor/Sensory: no tremor, normal movement and no sensory deficit Psychiatric: Orientation: alert and oriented x 3 Results & Data Vital Signs (Past 12 Hours) Vital Signs Temp Pulse Pulse Resp BP BP Pulse Ox 06/08/19 08:30 83 18 199/114 H 97 06/08/19 08:00 81 16 207/109 H 97 06/08/19 07:30 84 10 L 178/99 H 98 06/08/19 07:00 77 20 192/91 H 97 06/08/19 06:57 77 18 182/111 H 96 06/08/19 06:42 76 19 199/101 H 92 06/08/19 06:32 76 19 95 06/08/19 06:31 75 18 208/99 H 97 06/08/19 06:30 75 18 208/99 H 95 06/08/19 06:29 76 19 193/96 H 96 06/08/19 06:13 79 18 191/114 H 97 06/08/19 06:10 78 19 191/114 H 91 06/08/19 06:00 81 16 202/118 H 98 06/08/19 05:55 75 76 20 197/104 H 197/104 H 91 06/08/19 05:45 79 20 224/97 H 94 06/08/19 05:39 80 17 204/112 H 96 06/08/19 05:38 80 22 98 06/08/19 05:26 216/109 H 06/08/19 05:18 76 16 208/111 H 88 L 06/08/19 05:12 78 16 211/102 H 94 06/08/19 05:06 81 13 201/117 H 99 06/08/19 05:03 86 20 201/117 H 97 06/08/19 05:00 90 20 06/08/19 04:30 90 25 H 99 06/08/19 04:29 36.6 C 16 201/104 H 99 06/08/19 04:28 90 22 201/104 H 100 Laboratory Results 06/08/19 06/08/19 06/08/19 Range/Units 12:04 05:10 05:10 WBC 7.08 (4.8-10.8) K/uL RBC 4.43 (4.2-5.4) M/uL Hgb 12.1 (12.0-16.0) g/dL Hct 36.1 L (37-47) % MCV 81.5 (80-100) fL MCH 27.3 (25-34) pg MCHC 33.5 (32-36) g/dL RDW Std Deviation 44.9 (36.4-46.3) fL RDW Coeff of Catrachito 15.1 H (11.5-14.5) % Plt Count 254 (130-400) K/uL MPV 9.1 (7.4-10.4) fL Immature Gran % (Auto) 0.1 % Neut % (Auto) 72.5 % Lymph % (Auto) 19.5 % [place] % (Auto) 5.9 % Eos % (Auto) 1.7 % Baso % (Auto) 0.3 % Immature Gran # (Auto) 0.01 (0.00-0.02) K/uL Neut # (Auto) 5.13 (1.4-6.5) K/uL Lymph # (Auto) 1.38 (1.2-3.4) K/uL [place] # (Auto) 0.42 (0.11-0.59) K/uL Eos # (Auto) 0.12 (0-0.5) K/uL Baso # (Auto) 0.02 (0-0.2) K/uL PT (9.0-12.0) Seconds INR (0.9-1.1) Sodium (136-145) mmol/L Potassium (3.5-5.1) mmol/L Chloride (98-107) mmol/L Carbon Dioxide (21-32) mmol/L Anion Gap (3-11) BUN (7-18) mg/dl Creatinine (0.6-1.2) mg/dl Est Cr Clr Drug Dosing ml/min Est GFR ( Amer) Est GFR (Non-Af Amer) BUN/Creatinine Ratio (10-20) Glucose (70-99) mg/dl Calcium (8.5-10.1) mg/dl Magnesium (1.8-2.4) mg/dl Total Bilirubin (0.2-1) mg/dl Direct Bilirubin (0-0.2) mg/dl AST (15-37) U/L ALT (12-78) U/L Alkaline Phosphatase (45-117) U/L Total Creatine Kinase (26-192) U/L Troponin I < 0.015 (0-0.045) ng/ml Total Protein (6.4-8.2) gm/dl Albumin (3.4-5.0) gm/dl TSH (0.300-4.500) uIu/ml Acetaminophen 44 H (10-30) ug/ml 06/08/19 06/08/19 Range/Units 05:10 04:53 WBC (4.8-10.8) K/uL RBC (4.2-5.4) M/uL Hgb (12.0-16.0) g/dL Hct (37-47) % MCV (80-100) fL MCH (25-34) pg MCHC (32-36) g/dL RDW Std Deviation (36.4-46.3) fL RDW Coeff of Catrachito (11.5-14.5) % Plt Count (130-400) K/uL MPV (7.4-10.4) fL Immature Gran % (Auto) % Neut % (Auto) % Lymph % (Auto) % [place] % (Auto) % Eos % (Auto) % Baso % (Auto) % Immature Gran # (Auto) (0.00-0.02) K/uL Neut # (Auto) (1.4-6.5) K/uL Lymph # (Auto) (1.2-3.4) K/uL [place] # (Auto) (0.11-0.59) K/uL Eos # (Auto) (0-0.5) K/uL Baso # (Auto) (0-0.2) K/uL PT 10.3 (9.0-12.0) Seconds INR 1.0 (0.9-1.1) Sodium 141 (136-145) mmol/L Potassium 3.0 L (3.5-5.1) mmol/L Chloride 104 (98-107) mmol/L Carbon Dioxide 23 (21-32) mmol/L Anion Gap 14.0 H (3-11) BUN 15 (7-18) mg/dl Creatinine 0.81 (0.6-1.2) mg/dl Est Cr Clr Drug Dosing 59.7 ml/min Est GFR ( Amer) 83.5 Est GFR (Non-Af Amer) 72.1 BUN/Creatinine Ratio 18.1 (10-20) Glucose 128 H (70-99) mg/dl Calcium 9.0 (8.5-10.1) mg/dl Magnesium 1.9 (1.8-2.4) mg/dl Total Bilirubin 0.5 (0.2-1) mg/dl Direct Bilirubin < 0.1 (0-0.2) mg/dl AST 14 L (15-37) U/L ALT 16 (12-78) U/L Alkaline Phosphatase 50 (45-117) U/L Total Creatine Kinase 33 (26-192) U/L Troponin I < 0.015 (0-0.045) ng/ml Total Protein 7.2 (6.4-8.2) gm/dl Albumin 3.5 (3.4-5.0) gm/dl TSH 1.240 (0.300-4.500) uIu/ml Acetaminophen (10-30) ug/ml Diagnostic Findings CT head noncontrast-negative for acute disease Renal artery duplex-mild atherosclerosis but no high-grade renal artery stenosis ECG Additional Comments: ECG with normal sinus rhythm, no ischemic changes Code Status & VTE Plan Code Status Full code VTE Prophylaxis Plan VTE Prophylaxis will be ordered: Yes PG Care Time/CCT Total # of Minutes Spent Total Time Spent with Patient: Total time spent is greater than 50% in coordination of care (as documented) at patient's floor/unit and/or counseling patient: (1) Headache Headache chronicity pattern: acute headache Headache type: unspecified Intractability: not intractable Qualified Code(s): R51 - Headache
[2019-06-08] MEDS: METOPROLOL SUCC 25MG EXT REL TAB PO SCH ×2 (09:19→09:20)
[2019-06-08] MEDS ORDERED: LEVALBUTEROL TARTRATE 15 GM HFA.AER.AD INH PRN (09:58)
[2019-06-08] MEDS ORDERED: CYCLOBENZAPRINE HCL 5 MG TAB PO PRN (09:58)
[2019-06-08] MEDS ORDERED: MoRPHine SULFATE 2 MG/ML CARP IV PRN (09:58)
[2019-06-08] MEDS ORDERED: HydrALAZINE HCL 20 MG/ML VIAL IV PRN (09:58)
[2019-06-08] MEDS ORDERED: LABETALOL HCL IV 5 MG/ML 20ML IV PRN (09:58)
[2019-06-08] MEDS ORDERED: LISINOPRIL 20 MG TAB PO STA (10:03)
[2019-06-08] MEDS ORDERED: LEVOTHYROXINE SODIUM 50 MCG TABLET PO SCH (10:15)
[2019-06-08] MEDS ORDERED: SERTRALINE HCL 100 MG TABLET PO SCH (10:15)
[2019-06-08] MEDS: ONDANSETRON INJ 2 MG/ML 2 ML VIAL IV PRN ×2 (10:17→20:13)
--- NOTE | 2019-06-08 10:59 | Ultrasound Report ---
DOPPLER ULTRASOUND OF THE RENAL ARTERIES CLINICAL HISTORY: Hypertension. COMPARISON STUDY: None TECHNIQUE: Doppler sonography of the renal arteries was performed to assess renal artery stenosis. Im ages are reviewed in the transverse and longitudinal planes. FINDINGS: The kidneys appear normal in size and echotexture. There is no hydronephrosis. On the right, intrarenal arterial resistive indices are normal. Intrarenal arterial waveforms are nor mal with brisk upstrokes. The right renal arterial waveform is normal, and velocities within the righ t renal artery measure up to 195 cm/sec. The right renal vein is patent. On the left, intrarenal arterial resistive indices are normal.. Intrarenal arterial waveforms are no rmal with brisk upstrokes. The left renal arterial waveform is normal, and velocities within the left renal artery measure up to and 65 cm/sec. The left renal vein is patent. The abdominal aorta is patent. Velocities within the abdominal aorta measure up to 89 cm/s. IMPRESSION: Mild atherosclerotic narrowing of the arterial supply of both kidneys. No evidence for hi gh-grade stenosis. Electronically signed by: Shalom Silverman M.D. 06/08/2019 10:58 AM
[2019-06-08] MEDS: ACETAMINOPHEN 500 MG TAB PO PRN (11:05)
[2019-06-08] MEDS: PANTOprazole 40 MG TAB PO SCH (11:06)
[2019-06-08] MEDS: ANASTROZOLE 1 MG TAB PO SCH (11:07)
[2019-06-08] MEDS: LISINOPRIL 40 MG TAB PO SCH (11:23)
[2019-06-08] MEDS: dilTIAZem HCL 240 MG CAPCR PO SCH (11:24)
[2019-06-08] MEDS ORDERED: MoRPHine SULFATE 4 MG/ML 1 ML CARP\\VIAL ONE (12:31)
[2019-06-08] MEDS ORDERED: OPTIRAY 320 125ml IV PRN (13:29)
--- NOTE | 2019-06-08 13:56 | CT Scan Report ---
CT angio head w con CLINICAL HISTORY: 74 years-old Female presenting with severe headache, hypertensive urgency. TECHNIQUE: Multidetector CT angiography of the head was performed after the administration of intrave nous contrast. 3-D volumetric and/or maximum intensity projection (MIP) images were subsequently edward nstructed for review. IV contrast: 119 mL of Optiray 320. One or more dose lowering techniques were u sed consistent with the principles of ALARA (as low as reasonably achievable), including automatic ex posure control, mA or kV adjustment to individual patient size, and/or use of iterative reconstructio n. COMPARISON: Noncontrast CT head performed earlier the same day. CT DOSE (mGy.cm): The estimated cumulative dose is 628.12 mGy.cm. FINDINGS: Money Order Clerk topogram: Unremarkable. Anterior circulation: Atherosclerosis of the cavernous segments of the internal carotid arteries. Int racranial portions of the internal carotid arteries patent to the level of the termini. Anterior cere bral arteries patent. Middle cerebral arteries patent. Anterior communicating artery patent. Posterior circulation: Left dominant vertebral artery. Intradural portions of the vertebral arteries patent. Posterior inferior cerebellar arteries patent. Basilar artery patent with a diminutive and po tentially fenestrated basilar tip due to near origin of the bilateral posterior cerebral arteri es.. Anterior inferior cerebellar arteries poorly visualized. Superior cerebellar arteries patent. Po sterior cerebral arteries patent; near origins as mentioned. Posterior communicating arteries p atent. Dural venous sinuses: Patent. Other: Allowing for the phase of contrast, brain parenchyma within normal limits. Calvarium intact. IMPRESSION: 1. No evidence of aneurysm, focal vessel occlusion, or significant stenosis of the intracranial alireza domi. Electronically signed by: Grant Jameson M.D. 06/08/2019 1:55 PM
--- NOTE | 2019-06-08 14:05 | CT Scan Report ---
CT ANGIOGRAM OF THE NECK CLINICAL HISTORY: Headache. Hypertension. COMPARISON STUDY: No priors. TECHNIQUE: Following the IV administration of 119 of Optiray 320, CT angiogram of the neck was perfor med from the aortic arch to the skull base. Images are reviewed in the axial, sagittal, and coronal p lanes. 3-D MIPS images are created and assessed. IV contrast was administered without complication. A ll measurements were calculated based on NASCET criteria. A dose lowering technique was utilized adh ering to the principles of ALARA. FINDINGS: Thoracic aorta: Visualized portions of the thoracic aorta are normal in caliber. The aortic arch demo nstrates bovine variant anatomy. Right carotid arterial system: The right common carotid artery is widely patent, as are the right int ernal and external carotid arteries. Atherosclerotic calcification is noted in the carotid bulb. Left carotid arterial system: The left common carotid artery is widely patent, as are the left finance intern al and external carotid arteries. Mild atherosclerotic calcification is noted in the carotid bulb. Vertebral arteries: The vertebral arteries are patent bilaterally noting left-sided dominance. Subclavian arteries: Widely patent bilaterally. Intracranial vasculature: The partially visualized intracranial vessels at the skull base are patent. Jugular veins: Widely patent bilaterally. Brain parenchyma: The visualized brain parenchyma the skull base is within normal limits. Lung apices: Partially visualized upper lobe lung parenchyma appears clear. Soft tissues: The visualized pharyngeal soft tissues are normal in appearance noting angiographic pha se technique. The oropharyngeal airway appears widely patent. The salivary and thyroid glands are nor mal in appearance. No cervical lymphadenopathy is seen. Skeletal structures: The skeletal structures are osteopenic. The visualized calvarium at the skull ba se appears intact. The imaged cervical spine is maintained noting mild multilevel spondylosis. IMPRESSION: Unremarkable CT angiogram of the neck. Electronically signed by: Brendne Tello M.D. 06/08/2019 2:04 PM
--- NOTE | 2019-06-08 16:46 | Cardiology Consultation ---
Date of Consultation June 08, 2019 Assessment & Plan (1) Hypertensive emergency: Blood pressure has improved with nicardipine drip. Lisinopril has been titrated by primary service from 30 mg to 40 mg and metoprolol succinate increased from 12.5 mg to 25 mg. Would recommend diuretic therapy and because she has been having issues with hypokalemia, would recommend spironolactone 25 mg daily. Would try to wean off of nicardipine drip. If further blood pressure control is needed with oral medications, would consider changing metoprolol succinate to different beta-charleen which may offer more blood pressure benefit. Could also consider a more aggressive calcium channel charleen in place of diltiazem if necessary. Would aim to improve her blood pressure slowly. (2) Headache: Hopefully blood pressure improvement correlates with improvement of her headache. If not, recommend further evaluation as per primary service. (3) Disposition: Cardiology will continue to follow. Plan of care discussed with Dr. Thomas of the primary hospitalist service. Thank you for allowing me to participate in the care of your patient. Please call for any other questions or concerns. Sincerely, Lev Cannon M.D. History of Present Illness Reason for Consultation: Hypertensive urgency Requesting Physician: Dr. Thomas Attending Physician: Karissa Thomas MD History of Present Illness Mrs. Tadeo is a 74-year-old female with a history significant for breast cancer status post bilateral mastectomy, chemotherapy, XRT, hypertension, pre diabetes, hypothyroidism, presented to [facility] with headach e and hypertension. She recently underwent bilateral mastectomy and her last chemotherapy was in February of 2018. For the past several weeks, she has been noted to be hypertensive and her diltiazem was increased from 120 mg to 240 mg. Lisinopril was titrated from 10 mg up to 30 mg, and over this past weekend, metoprolol succinate was initiated at 12.5 mg once daily when she was seen in her PCPs office with hypertension and severe headache. Blood pressure was 201/104 mmHg in the emergency department, and she has been as high as 224/97mmHg. She was given intravenous labetalol and hydralazine on a nicardipine drip at 5 milligrams/hour. Lisinopril was also increased to 40 mg daily by the primary service succinate increase to 25 mg daily. When presenting to her room for evaluation, she had recently received intravenous morphine and was somnolent but easily arousable with verbal stimuli. History was obtained both from her and also significant input was offered by her . She rated her headache as 10/10 earlier but at the time of our visit, was down to 4/10. She denies any recent chest pain, shortness of breath, syncope, near-syncope, palpitations, edema. She did fall twice recently. On 1 occasion she fell while getting off of her treadmill and injured her hip, resulting in a hematoma according to her . She also fell at restorationist after dropping her water bottle. With this fall, she fractured her distal left upper extremity. She has been using Tylenol and NSAID for pain relief from her mastectomy. Review of systems: As above. Review of systems otherwise negative/unremarkable. Social history: Denies tobacco or alcohol abuse. No children. She lives at home with her . 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 Her was at the bedside. Family history: Father had stroke. Allergies Allergy/AdvReac Type Severity Reaction Status Date / Time Penicillins Allergy Intermediate RASH Verified 06/08/19 05:54 shellfish derived Allergy Mild HIVES RASH Verified 06/08/19 05:54 propoxyphene [From Darvon] AdvReac Unknown Verified 06/08/19 05:54 Home Medications Home Medications Medication Instructions Recorded Confirmed Type acetaminophen [Tylenol Extra 500 mg PO Q6H PRN 03/13/19 06/08/19 History Strength] cholecalciferol (vitamin D3) 2,000 unit PO HS 03/13/19 06/08/19 History [Vitamin D3] levothyroxine 25 mcg PO QAM 03/13/19 06/08/19 History levalbuterol tartrate 2 puffs INH Q6H PRN #15 gm 03/24/19 06/08/19 Rx melatonin 1 mg tablet 1 mg PO HS PRN tab 03/31/19 06/08/19 History anastrozole 1 mg tablet 1 mg PO DAILY 05/18/19 06/08/19 History cyclobenzaprine 5 mg tablet 5 mg PO HS PRN #10 tab 05/18/19 06/08/19 Rx diltiazem HCl [Cartia XT] 240 mg PO QAM 05/30/19 06/08/19 History omeprazole 10 mg capsule,delayed 10 mg PO DAILY #90 cap 06/05/19 06/08/19 Rx release hydroxyzine HCl 10 mg tablet 10 mg PO HS PRN #15 tab 06/06/19 06/08/19 Rx metoprolol succinate ER 25 mg 12.5 mg PO DAILY #15 tab 06/06/19 06/08/19 Rx tablet,extended release 24 hr sertraline 100 mg tablet 100 mg PO QAM tab 06/06/19 06/08/19 History lisinopril 30 mg PO DAILY 06/08/19 06/08/19 History Patient History Medical History Depression (Chronic) GERD (gastroesophageal reflux disease) (Chronic) Hypothyroid (Chronic) Breast cancer (Resolved) HTN (hypertension) (Resolved) PNA (pneumonia) (Resolved) Surgical History H/O mastectomy (Chronic) Bilateral History of lumbar laminectomy (Resolved) Family History Father Stroke Prostate cancer Mother Melanoma Sister Lung disease Brother Arthritis Social History Preferred Language: Turkmen Communication Ability: Effective Assistant District Attorney Required: No Beliefs That Will Affect Care: None Current Living Situation: Spouse Feels Safe at Home: Yes Smoking Status: Never smoker Second Hand Exposure: No ; Hx Alcohol Use: Yes (occasional prior to cancer, dx but none now) Hx Substance Use: No Physical Exam Physical Exam: Gen.: No acute distress. Somnolent but easily arousable with verbal stimuli. HEENT: Anicteric sclera. Pupils were equal and round. Neck: No JVD. No bruits. Normal carotid upstrokes bilaterally. Cardiac: PMI was nondisplaced. No ventricular heave. Regular. Normal S1-S2. 2/6 systolic murmur. No rubs, or gallops. Pulmonary: Clear to auscultation bilaterally without wheezes, rales, or rhonchi. Abdomen: Soft, nontender, nondistended, with normoactive bowel sounds. No bruits noted. Extremities: 2+ right radial pulse. Left distal upper extremity in a cast. 2+ posterior tibialis pulses bilaterally. No edema or cyanosis. Psychiatric: Affect appears appropriate. Results & Data Vital Signs (Past 12 Hours) Vital Signs Temp Pulse Pulse Resp BP BP Pulse Ox 06/08/19 15:00 161/72 H 06/08/19 14:45 156/69 H 06/08/19 14:30 156/73 H 06/08/19 14:15 155/75 H 06/08/19 14:00 162/73 H 06/08/19 13:45 174/70 H 06/08/19 13:31 88 174/76 H 06/08/19 13:01 220/102 H 06/08/19 12:14 84 185/85 H 06/08/19 11:00 36.7 C 82 22 184/77 H 97 06/08/19 09:37 36.7 C 83 20 174/90 H 97 06/08/19 09:22 80 20 162/93 H 95 06/08/19 08:54 80 17 191/96 H 94 06/08/19 08:45 84 15 174/112 H 94 06/08/19 08:30 83 18 199/114 H 97 06/08/19 08:00 81 16 207/109 H 97 06/08/19 07:30 84 10 L 178/99 H 98 06/08/19 07:00 77 20 192/91 H 97 06/08/19 06:57 77 18 182/111 H 96 06/08/19 06:42 76 19 199/101 H 92 06/08/19 06:32 76 19 95 06/08/19 06:31 75 18 208/99 H 97 06/08/19 06:30 75 18 208/99 H 95 06/08/19 06:29 76 19 193/96 H 96 06/08/19 06:13 79 18 191/114 H 97 06/08/19 06:10 78 19 191/114 H 91 06/08/19 06:00 81 16 202/118 H 98 06/08/19 05:55 75 76 20 197/104 H 197/104 H 91 06/08/19 05:45 79 20 224/97 H 94 06/08/19 05:39 80 17 204/112 H 96 06/08/19 05:38 80 22 98 06/08/19 05:26 216/109 H 06/08/19 05:18 76 16 208/111 H 88 L 06/08/19 05:12 78 16 211/102 H 94 06/08/19 05:06 81 13 201/117 H 99 06/08/19 05:03 86 20 201/117 H 97 06/08/19 05:00 90 20 06/08/19 04:30 90 25 H 99 06/08/19 04:29 36.6 C 16 201/104 H 99 06/08/19 04:28 90 22 201/104 H 100 Laboratory Results Laboratory Results - last 24 hr 06/08/19 06/08/19 06/08/19 04:53 05:10 05:10 WBC RBC Hgb Hct MCV MCH MCHC RDW Std Deviation RDW Coeff of Catrachito Plt Count MPV Immature Gran % (Auto) Neut % (Auto) Lymph % (Auto) [place] % (Auto) Eos % (Auto) Baso % (Auto) Immature Gran # (Auto) Neut # (Auto) Lymph # (Auto) [place] # (Auto) Eos # (Auto) Baso # (Auto) PT 10.3 INR 1.0 Sodium 141 Potassium 3.0 L Chloride 104 Carbon Dioxide 23 Anion Gap 14.0 H BUN 15 Creatinine 0.81 Est Cr Clr Drug Dosing 59.7 Est GFR ( Amer) 83.5 Est GFR (Non-Af Amer) 72.1 BUN/Creatinine Ratio 18.1 Glucose 128 H Calcium 9.0 Magnesium 1.9 Total Bilirubin 0.5 Direct Bilirubin < 0.1 AST 14 L ALT 16 Alkaline Phosphatase 50 Total Creatine Kinase 33 Troponin I < 0.015 Total Protein 7.2 Albumin 3.5 TSH 1.240 Acetaminophen 44 H 06/08/19 06/08/19 05:10 12:04 WBC 7.08 RBC 4.43 Hgb 12.1 Hct 36.1 L MCV 81.5 MCH 27.3 MCHC 33.5 RDW Std Deviation 44.9 RDW Coeff of [place] 15.1 H Plt Count 254 MPV 9.1 Immature Gran % (Auto) 0.1 Neut % (Auto) 72.5 Lymph % (Auto) 19.5 [place] % (Auto) 5.9 Eos % (Auto) 1.7 Baso % (Auto) 0.3 Immature Gran # (Auto) 0.01 Neut # (Auto) 5.13 Lymph # (Auto) 1.38 [place] # (Auto) 0.42 Eos # (Auto) 0.12 Baso # (Auto) 0.02 PT INR Sodium Potassium Chloride Carbon Dioxide Anion Gap BUN Creatinine Est Cr Clr Drug Dosing Est GFR ( Amer) Est GFR (Non-Af Amer) BUN/Creatinine Ratio Glucose Calcium Magnesium Total Bilirubin Direct Bilirubin AST ALT Alkaline Phosphatase Total Creatine Kinase Troponin I < 0.015 Total Protein Albumin TSH Acetaminophen Diagnostic Findings Telemetry personally reviewed: Sinus rhythm. ECG personally reviewed: ECG 06/08/2019: Sinus rhythm [address] 06/08/2019: No hemorrhage. Renal artery duplex 06/08/2019: Mild atherosclerotic narrowing of the arterial supply of both kidneys. No evidence for high-grade stenosis per Radiology. Echo 03/18/2019: Normal LV size, wall motion, systolic function. EF 55-60%. No significant valvular abnormalities reported. Medications Administered Current Inpatient Medications Acetaminophen (Tylenol) 1,000 mg PO Q8H PRN PRN Reason: Pain Stop: 07/08/19 09:57 Last Admin: 06/08/19 11:05 Dose: 1,000 mg Documented by: Anastrozole (Arimidex) 1 mg PO DAILY [facility] Stop: 07/08/19 10:14 Last Admin: 06/08/19 11:07 Dose: 1 mg Documented by: Cyclobenzaprine HCl (Flexeril) 5 mg PO HS PRN PRN Reason: muscle spasm Stop: 07/08/19 09:57 Diltiazem HCl (Cardizem Cd) 240 mg PO QAM [facility] Stop: 07/08/19 10:14 Last Admin: 06/08/19 11:24 Dose: Not Given Documented by: Hydralazine HCl (Hydralazine Hcl) 10 mg IV Q6 PRN PRN Reason: SBP>180 or DBP>110 Stop: 07/08/19 09:57 Last Admin: 06/08/19 11:05 Dose: 10 mg Documented by: Nicardipine HCl 25 mg/ Sodium (Chloride) 250 mls @ 50 mls/hr IV .Q5H [facility]; Protocol Stop: 07/08/19 12:14 Last Admin: 06/08/19 17:42 Dose: 5 mg/hr, 50 mls/hr Documented by: Ioversol (Optiray 320 125ml) 119 ml IV ONCE PRN PRN Reason: Interaction Checking Stop: 06/12/19 13:28 Last Admin: 06/08/19 13:29 Dose: 119 ml Documented by: Labetalol HCl (Normodyne) 20 mg IV Q6H PRN PRN Reason: SBP>180 or DBP>110 Stop: 07/08/19 09:57 Levalbuterol HCl (Xopenex Hfa) 2 puffs INH Q6H PRN PRN Reason: shortness of breath Stop: 07/08/19 09:57 Levothyroxine Sodium (Synthroid) 25 mcg PO DAILYBB [facility] Stop: 07/09/19 06:29 Lisinopril (Zestril) 40 mg PO DAILY [facility] Stop: 07/08/19 10:14 Last Admin: 06/08/19 11:23 Dose: Not Given Documented by: Metoprolol Succinate (Toprol Xl) 25 mg PO DAILY [facility] Stop: 07/08/19 08:53 Last Admin: 06/08/19 09:20 Dose: 25 mg Documented by: Morphine Sulfate (Morphine Sulfate) 4 mg IV Q2H PRN PRN Reason: Severe Pain Stop: 06/22/19 09:57 Ondansetron HCl (Zofran) 4 mg IV Q6H PRN PRN Reason: Nausea Stop: 07/08/19 09:57 Last Admin: 06/08/19 10:17 Dose: 4 mg Documented by: Pantoprazole Sodium (Protonix) 40 mg PO DAILY [facility] Stop: 07/08/19 10:14 Last Admin: 06/08/19 11:06 Dose: 40 mg Documented by: Sertraline HCl (Zoloft) 100 mg PO QAM [facility] Stop: 07/08/19 10:14 Last Admin: 06/08/19 11:06 Dose: 100 mg Documented by: Spironolactone (Aldactone) 25 mg PO QAM [facility] Stop: 07/08/19 17:14 Last Admin: 06/08/19 17:42 Dose: 25 mg Documented by: Vitamin D (Vitamin D3) 2,000 units PO HS [facility] Stop: 07/08/19 20:59 PG Care Time/CCT Total # of Minutes Spent Total Time Spent with Patient: Total time spent is greater than 50% in coordination of care (as documented) at patient's floor/unit and/or counseling patient: (1) Headache Headache chronicity pattern: acute headache Headache type: unspecified Intractability: not intractable Qualified Code(s): R51 - Headache
[2019-06-08] MEDS: SPIRONOLACTONE 25 MG TAB PO SCH (17:42)
[2019-06-08] MEDS: CHOLECALCIFEROL 1,000 UNITS TAB PO SCH (20:27)
[2019-06-08] MEDS: MoRPHine SULFATE 4 MG/ML 1 ML CARP\\VIAL IV PRN (20:41)
[2019-06-09] MEDS: SODIUM CHLORIDE 0.65% NA SOLN 45 ML (OCEAN) ONE ×2 (03:00→04:33)
[2019-06-09] MEDS ORDERED: SODIUM CHLORIDE 0.65% NA SOLN 45 ML (OCEAN) PRN (03:06)
[2019-06-09] MEDS: LEVOTHYROXINE SODIUM 25 MCG TABLET PO SCH (05:53)
[2019-06-09 07:15] LABS: Basophils # (auto) 0.02 K/uL (0-0.2); Basophils % (auto) 0.2 %; Eosinophils # (auto) 0.04 K/uL (0-0.5); Eosinophils % (auto) 0.4 %; Hematocrit (blood only) 34.1 % (37-47); Hemoglobin 11.2 g/dL (12.0-16.0); Immature Granulocytes # (auto) 0.02 K/uL (0.00-0.02); Immature Granulocytes % (auto) 0.2 %; Lymphocytes # (auto) 1.01 K/uL (1.2-3.4); Lymphocytes % (auto) 9.5 %; Mean Corpuscular Hgb Conc 32.8 g/dL (32-36); Mean Corpuscular Volume 83.4 fL (80-100); Mean Platelet Volume 8.9 fL (7.4-10.4); Monocytes # (auto) 0.43 K/uL (0.11-0.59); Monocytes % (auto) 4.1 %; Neutrophils # (auto) 9.07 K/uL (1.4-6.5); Neutrophils % (auto) 85.6 %; Platelet Count 276 K/uL (130-400); RDW Coefficient of Variation 15.6 % (11.5-14.5); RDW Standard Deviation 47.8 fL (36.4-46.3); Red Blood Count 4.09 M/uL (4.2-5.4); White Blood Count 10.59 K/uL (4.8-10.8)
[2019-06-09] MEDS: ACETAMINOPHEN 500 MG TAB PO PRN (07:18)
[2019-06-09 07:44] LABS: BUN Creatinine Ratio 12.1 (10-20); Calcium 9.2 mg/dl (8.5-10.1); Creatinine Clr Calc Pharmacy 56.9 ml/min; Est GFR (African American) 78.8; Magnesium 2.2 mg/dl (1.8-2.4); Potassium 3.2 mmol/L (3.5-5.1)
[2019-06-09] MEDS: MoRPHine SULFATE 4 MG/ML 1 ML CARP\\VIAL IV PRN ×2 (08:29→18:37)
[2019-06-09] MEDS: METOPROLOL SUCC 25MG EXT REL TAB PO SCH (08:30)
[2019-06-09] MEDS: PANTOprazole 40 MG TAB PO SCH (08:30)
[2019-06-09] MEDS: ANASTROZOLE 1 MG TAB PO SCH (08:31)
[2019-06-09] MEDS: LISINOPRIL 40 MG TAB PO SCH (08:31)
[2019-06-09] MEDS: SPIRONOLACTONE 25 MG TAB PO SCH (08:31)
[2019-06-09] MEDS: SERTRALINE HCL 50 MG TABLET PO SCH (08:31)
[2019-06-09] MEDS: dilTIAZem HCL 240 MG CAPCR PO SCH (08:31)
[2019-06-09] MEDS ORDERED: POTASSIUM CHLORIDE 20 MEQ TABCR PO ONE (09:15)
--- NOTE | 2019-06-09 09:17 | XRay Report ---
XR chest 1V portable CLINICAL HISTORY: 74 years-old Female presenting with hypoxia. TECHNIQUE: Portable upright AP view of the chest was obtained. COMPARISON: 05/30/[address] from 05/07/2019. FINDINGS: Multiple external leads and catheters project over the thorax to grating evaluation. Bilateral drains projecting over the hemithoraces may be superficial/extrathoracic. Surgical clips project over the b ilateral axillae. Atherosclerosis of the aortic arch. Cardiac silhouette mildly enlarged. Mild pulmonary vascular promi nence. No focal opacity. No large effusion or pneumothorax. Degenerative changes of the thoracic spin e. Degraded evaluation of the upper abdomen due to external leads and devices. IMPRESSION: 1. Cardiomegaly. No other convincing evidence of acute cardiopulmonary disease. 2. Bilateral surgical drains may be superficial. Electronically signed by: Grant Jameson M.D. 06/09/2019 9:16 AM
--- NOTE | 2019-06-09 10:46 | Cardiology Progress Note ---
Date of Service June 09, 2019 Assessment & Plan (1) Hypertensive emergency: Blood pressure overall much improved. Lisinopril has been titrated from 30 mg up to 40 mg. Metoprolol succinate was increased by primary service to 25 mg daily. Would recommend discontinuation of nicardipine drip for now. Continue spironolactone 25 mg daily which was initiated last evening. Spironolactone will likely improve her hypokalemia as well. If blood pressure becomes more significantly elevated, can replace metoprolol succinate with carvedilol 6.25 mg twice daily. Avoid NSAIDs. Arimidex may be playing a role in her recently worsening hypertension. (2) Headache: Headache continues despite normal to mildly elevated blood pressure. Neurology consultation is pending. She also is experiencing an aura which has occurred in the past during her migraine headaches. Arimidex can also cause headaches. Will defer evaluation to Neurology and primary service. (3) Disposition: Cardiology will continue to follow. Plan of care discussed with Dr. Thomas of the primary hospitalist service. Subjective She continues to have a headache in rates the pain between a 4-5, out of 10. She also has visual disturbances which she says is the same or that she typically gets with migraine headaches. She has had migraine headaches chronically since approximately the age of 13. She otherwise denies neurologic symptoms. She denies chest pain, shortness of breath, syncope, near-syncope, palpitations, or edema. She denies bleeding. Nicardipine drip has been on and off intermittently based on blood pressure. Her blood pressure has been reasonably controlled, with mild hypertension at times off of nicardipine but otherwise her blood pressure has improved significantly since presentation. Neurology consultation is pending. Review of systems: As above. Physical Exam Physical Exam: Gen.: No acute distress. Alert and oriented. HEENT: Anicteric sclera. Neck: No JVD. Cardiac: Regular. Normal S1-S2. 2/6 systolic murmur. No rubs, or gallops. Pulmonary: Clear to auscultation bilaterally without wheezes, rales, or rhonchi. Abdomen: Soft, nontender, nondistended, with normoactive bowel sounds. No bruits noted. Extremities: No edema or cyanosis. Psychiatric: Affect appears appropriate. Results & Data Vital Signs (Past 12 Hours) Vital Signs Temp Pulse Resp BP Pulse Ox 06/09/19 07:08 38 C H 95 H 18 113/58 L 94 06/09/19 06:30 98 H 138/63 06/09/19 06:15 88 146/64 H 06/09/19 06:00 90 138/61 06/09/19 05:45 85 142/63 H 06/09/19 05:30 88 134/59 L 06/09/19 05:15 94 H 138/61 06/09/19 05:00 88 149/64 H 06/09/19 04:45 89 154/66 H 06/09/19 04:30 89 155/67 H 06/09/19 04:15 85 156/68 H 06/09/19 04:00 87 162/58 H 06/09/19 03:45 85 161/64 H 06/09/19 03:36 82 156/67 H 06/09/19 03:27 37.0 C 84 18 161/67 H 92 06/09/19 03:00 80 125/51 L 06/09/19 02:45 94 H 135/69 06/09/19 02:30 81 150/66 H 06/09/19 02:15 80 142/64 H 06/09/19 02:00 79 141/67 H 06/09/19 01:45 80 139/65 06/09/19 01:30 81 137/67 06/09/19 01:15 78 128/66 06/09/19 01:00 78 119/65 06/09/19 00:45 80 123/63 06/09/19 00:30 80 126/67 06/09/19 00:15 83 132/69 06/09/19 00:00 86 144/73 H 06/08/19 23:30 94 H 145/68 H 06/08/19 23:18 37.5 C 97 H 19 145/68 H 90 06/08/19 23:00 93 H 149/65 H 06/08/19 22:45 89 142/74 H Laboratory Results Laboratory Results - last 24 hr 06/08/19 06/09/19 06/09/19 12:04 06:34 06:34 WBC 10.59 RBC 4.09 L Hgb 11.2 L Hct 34.1 L MCV 83.4 MCH 27.4 MCHC 32.8 RDW Std Deviation 47.8 H RDW Coeff of Catrachito 15.6 H Plt Count 276 MPV 8.9 Immature Gran % (Auto) 0.2 Neut % (Auto) 85.6 Lymph % (Auto) 9.5 [place] % (Auto) 4.1 Eos % (Auto) 0.4 Baso % (Auto) 0.2 Immature Gran # (Auto) 0.02 Neut # (Auto) 9.07 H Lymph # (Auto) 1.01 L [place] # (Auto) 0.43 Eos # (Auto) 0.04 Baso # (Auto) 0.02 Sodium 136 Potassium 3.2 L Chloride 102 Carbon Dioxide 25 Anion Gap 9.0 BUN 10 D Creatinine 0.85 Est Cr Clr Drug Dosing 56.9 Est GFR ( Amer) 78.8 Est GFR (Non-Af Amer) 68.0 BUN/Creatinine Ratio 12.1 Glucose 170 H Calcium 9.2 Magnesium 2.2 Troponin I < 0.015 Diagnostic Findings Telemetry personally reviewed: Sinus rhythm. Medications Administered Current Inpatient Medications Acetaminophen (Tylenol) 1,000 mg PO Q8H PRN PRN Reason: Pain Stop: 07/08/19 09:57 Last Admin: 06/09/19 07:18 Dose: 1,000 mg Documented by: Anastrozole (Arimidex) 1 mg PO DAILY [facility] Stop: 07/08/19 10:14 Last Admin: 06/09/19 08:31 Dose: 1 mg Documented by: Cyclobenzaprine HCl (Flexeril) 5 mg PO HS PRN PRN Reason: muscle spasm Stop: 07/08/19 09:57 Diltiazem HCl (Cardizem Cd) 240 mg PO QAM [facility] Stop: 07/08/19 10:14 Last Admin: 06/09/19 08:31 Dose: 240 mg Documented by: Hydralazine HCl (Hydralazine Hcl) 10 mg IV Q6 PRN PRN Reason: SBP>180 or DBP>110 Stop: 07/08/19 09:57 Last Admin: 06/08/19 11:05 Dose: 10 mg Documented by: Nicardipine HCl 25 mg/ Sodium (Chloride) 250 mls @ 100 mls/hr IV .Q2H30M [facility]; Protocol Stop: 07/08/19 12:14 Last Admin: 06/09/19 09:01 Dose: 10 mg/hr, 100 mls/hr Documented by: Ioversol (Optiray 320 125ml) 119 ml IV ONCE PRN PRN Reason: Interaction Checking Stop: 06/12/19 13:28 Last Admin: 06/08/19 13:29 Dose: 119 ml Documented by: Labetalol HCl (Normodyne) 20 mg IV Q6H PRN PRN Reason: SBP>180 or DBP>110 Stop: 07/08/19 09:57 Levalbuterol HCl (Xopenex Hfa) 2 puffs INH Q6H PRN PRN Reason: shortness of breath Stop: 07/08/19 09:57 Levothyroxine Sodium (Synthroid) 25 mcg PO DAILYBB [facility] Stop: 07/09/19 06:29 Last Admin: 06/09/19 05:53 Dose: 25 mcg Documented by: Lisinopril (Zestril) 40 mg PO DAILY [facility] Stop: 07/08/19 10:14 Last Admin: 06/09/19 08:31 Dose: 40 mg Documented by: Metoprolol Succinate (Toprol Xl) 25 mg PO DAILY [facility] Stop: 07/08/19 08:53 Last Admin: 06/09/19 08:30 Dose: 25 mg Documented by: Morphine Sulfate (Morphine Sulfate) 4 mg IV Q2H PRN PRN Reason: Severe Pain Stop: 06/22/19 09:57 Last Admin: 06/09/19 08:29 Dose: 4 mg Documented by: Ondansetron HCl (Zofran) 4 mg IV Q6H PRN PRN Reason: Nausea Stop: 07/08/19 09:57 Last Admin: 06/08/19 20:13 Dose: 4 mg Documented by: Pantoprazole Sodium (Protonix) 40 mg PO DAILY [facility] Stop: 07/08/19 10:14 Last Admin: 06/09/19 08:30 Dose: 40 mg Documented by: Sertraline HCl (Zoloft) 150 mg PO QAM [facility] Stop: 07/09/19 08:59 Last Admin: 06/09/19 08:31 Dose: 150 mg Documented by: Sodium Chloride ([place] Nasal) 2 sprays NA Q1H PRN PRN Reason: Prophylaxis Stop: 07/09/19 03:05 Last Admin: 06/09/19 03:10 Dose: 2 sprays Documented by: Spironolactone (Aldactone) 25 mg PO QAM [facility] Stop: 07/08/19 17:14 Last Admin: 06/09/19 08:31 Dose: 25 mg Documented by: Vitamin D (Vitamin D3) 2,[address] [facility] Stop: 07/08/19 20:59 Last Admin: 06/08/19 20:27 Dose: 2,000 units Documented by: PG Care Time/CCT Total # of Minutes Spent Total Time Spent with Patient: Total time spent is greater than 50% in coordination of care (as documented) at patient's floor/unit and/or counseling patient: (1) Headache Headache chronicity pattern: acute headache Headache type: unspecified Intractability: not intractable Qualified Code(s): R51 - Headache
[2019-06-09] MEDS ORDERED: TRAMADOL HCL 50 MG TABLET PO PRN (15:02)
--- NOTE | 2019-06-09 15:07 | Neurology Consultation ---
Date of Consultation June 09, 2019 Assessment & Plan (1) Intractable migraine with aura: (2) Hypertensive emergency: (3) Ductal carcinoma of breast: Patient was admitted with severe hypertension and a severe migrainous type headache. Although the blood pressure is improved today she still has a headache although much milder at 3/10. I suspect that the hypertension triggered her migraines. This patient has a longstanding history of migraine headaches although much less frequent or severe recently. She is on no medication to prevent headaches and takes cpjm-fqb-pfyxxxq medications for them. More recently she was put on Arimidex which could give headaches and she has been taking a lot of Tylenol and yuee-tdz-qliqomw medications and rebound headaches are possible. Neurologic examination is nonfocal with no meningeal signs or encephalopathy. CT angiography of the head neck and CT scan of the head were unremarkable. Although she has breast cancer post mastectomy I doubt that she has a headache due to ELECTRONICS DESIGN ENGINEER Mets. Nevertheless, ELECTRONICS DESIGN ENGINEER Mets cannot be entirely excluded. Recommendations: 1. Consider treatment of cute headache with tramadol 50 mg as needed or prednisone 40 mg today at 20 mg tomorrow. 2. Discontinue/avoid excessive or daily use of apmq-zei-zrjxmbk medications including Tylenol as this could cause rebound headaches. 3. MRI of the brain with without contrast is reasonable to evaluate for ELECTRONICS DESIGN ENGINEER metastases or other intracranial abnormalities that could lead to headache, but I do not believe this is necessary as an inpatient. This could be done as an outpatient. 4. There is no need for daily medication for headache prophylaxis at this time 5. I would be happy to follow as an outpatient, if desired. Overall, I spent a total of 75 minutes with this case including review of records, direct evaluation the patient bedside, discussion of the case at bedside with the patient and her , as well as Dr. Thomas, including differential diagnosis and treatment options History of Present Illness Reason for Consultation: 74-year-old, who I was asked to see at the request of Dr. Thomas, for neurologic consultation regarding headache. Requesting Physician: Dr. Thomas Attending Physician: Karissa Thomas MD History of Present Illness Patient has a longstanding history of migraine headaches starting at age [age] years old occurring intermittently up through the present. Over the years, the headaches have waxed and waned and more recently in the last several years they have been occurring about 2 or 3 times a year and fairly mild in intensity. The patient really never took daily medicine headache prophylaxis and tends to take rhfu-dpl-wbxqxxi medications. A typical migraine consist of a visual warning/aura of zigzag lines lasting 30 minutes. She will then have a frontal or temporal headache, 1 side or the other, that last 1-2 hours. It is a steady pain and there is usually no more nausea, vomiting, photophobia, and sonophobia like she had in years past. Patient was diagnosed with breast cancer in October of 2018. She started chemotherapy for 4 cycles comma ending in February of 2019. She was told that there were is no metastases noted. She was put on Arimidex about a month ago and has had some mild nonspecific intermittent headaches since. Tylenol would help. She underwent bilateral mastectomy and axillary lymph node removal is bilaterally by Dr. Santana at [facility] June 02. Patient woke up at approximately 0100 on June 08 with a severe bifrontal headache. It was unresponsive to Tylenol or Motrin and keeping her from doing anything. Patient arrived on June 08 at the emergency room at 0429 with a temperature 36.6, respiratory rate 16, pulse 81, blood pressure 201/104 and O2 saturation 99%. She had no focal neurologic findings, meningeal signs, or encephalopathy. CT scan of the head was unremarkable. Chest x-ray was unremarkable except for some cardiomegaly. CT angiography of the head neck were unremarkable without vessel anomalies or stenosis. Renal ultrasound was unremarkable. CBC showed mild anemia and Chem profile was unremarkable. TSH was 1.2. Tylenol level is elevated at 44 (normal 10-30) Patient's blood pressure this morning was 145/88. She has continued to have a significant migraine type headache with vision problems since last night. Things seem missing in her vision. She has no eye pain or double vision. She has no confusion or speech problems. There is no weakness or numbness in the limbs. Her balance is off because of her low back. Currently, when I saw her today her headache was 3/10. Allergies Allergy/AdvReac Type Severity Reaction Status Date / Time Penicillins Allergy Intermediate RASH Verified 06/08/19 05:54 shellfish derived Allergy Mild HIVES RASH Verified 06/08/19 05:54 propoxyphene [From Darvon] AdvReac Unknown Verified 06/08/19 05:54 Home Medications Home Medications Medication Instructions Recorded Confirmed Type acetaminophen [Tylenol Extra 500 mg PO Q6H PRN 03/13/19 06/08/19 History Strength] cholecalciferol (vitamin D3) 2,000 unit PO HS 03/13/19 06/08/19 History [Vitamin D3] levothyroxine 25 mcg PO QAM 03/13/19 06/08/19 History levalbuterol tartrate 2 puffs INH Q6H PRN #15 gm 03/24/19 06/08/19 Rx melatonin 1 mg tablet 1 mg PO HS PRN tab 03/31/19 06/08/19 History anastrozole 1 mg tablet 1 mg PO DAILY 05/18/19 06/08/19 History cyclobenzaprine 5 mg tablet 5 mg PO HS PRN #10 tab 05/18/19 06/08/19 Rx diltiazem HCl [Cartia XT] 240 mg PO QAM 05/30/19 06/08/19 History omeprazole 10 mg capsule,delayed 10 mg PO DAILY #90 cap 06/05/19 06/08/19 Rx release hydroxyzine HCl 10 mg tablet 10 mg PO HS PRN #15 tab 06/06/19 06/08/19 Rx metoprolol succinate ER 25 mg 12.5 mg PO DAILY #15 tab 06/06/19 06/08/19 Rx tablet,extended release 24 hr sertraline 100 mg tablet 150 mg PO QAM tab 06/06/19 06/08/19 History lisinopril 30 mg PO DAILY 06/08/19 06/08/19 History Patient History Medical History Depression (Chronic) GERD (gastroesophageal reflux disease) (Chronic) Hypothyroid (Chronic) Breast cancer HTN (hypertension), benign Prediabetes Breast cancer (Resolved) HTN (hypertension) (Resolved) PNA (pneumonia) (Resolved) Surgical History H/O mastectomy (Chronic) Bilateral History of lumbar laminectomy (Resolved) Family History Father Stroke Prostate cancer Mother Melanoma Sister Lung disease Brother Arthritis Social History Preferred Language: Cypriot Communication Ability: Effective Elementary Ell Teacher Required: No Beliefs That Will Affect Care: None marital status: Current Living Situation: Spouse current occupational status: retired 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 Other Information That Helps Us Care for You: No Feels Safe at Home: Yes Safety Concerns: Feels Safe At This Time Smoking Status: Never smoker Second Hand Exposure: No ; Hx Alcohol Use: Yes (occasional prior to cancer, dx but none now) Hx Substance Use: No Review of Systems Constitutional: no fever, no fatigue and no weakness Eyes: + blind spots; no diplopia, no eye pain and no worsening vision Ear, Nose, Mouth, Throat: no ear pain, no tinnitus, no hearing loss, no dizziness, no snoring, no hoarseness and no dysphagia Respiratory: no cough and no dyspnea Cardiovascular: no chest pain, no palpitations and no lightheadedness Gastrointestinal: no abdominal pain, no nausea and no vomiting Genitourinary: no dysuria, no urinary frequency and no urinary incontinence Musculoskeletal: no back pain, no neck pain, no radicular pain, no joint pain and no myalgia Integumentary: no rash and no lesions Neurologic: no gait abnormality, no localized weakness, no generalized weakness, no tingling, no numbness, no tremor(s), no abnormal movements, no headache(s), no abnormal speech, no confusion and no memory loss Psychiatric: no depression, no irritability, no anxiety, no difficulty concentrating, no confusion and no hallucinations Endocrine: no fatigue and no flushing Hematologic / Lymphatic: no easy bleeding and no easy bruising Allergy / Immunological: no urticaria and no problem reported Physical Exam Physical Exam: The patient is right-handed. The patient is awake, alert, and attentive. Speech is normal without any aphasia or dysarthria. She can name objects, repeat phrases, and has normal spontaneous speech. Mentation and thought processes are intact, with orientation to person, place and time, and normal fund of knowledge. Attention and concentration are normal. Mood and affect are normal and appropriate. General appearance and grooming are normal. Short and long-term memory are intact. The discs are sharp with positive venous pulsations bilaterally. There are no exudates, hemorrhages, or blood vessel changes seen. Pupils are 3 mm bilaterally and reactive to light. Extraocular eye muscles are intact without nystagmus. Visual acuity and visual campa seem normal grossly to confrontation. There are no deficits to sensation in the face in all 3 distributions of the fifth cranial nerve bilaterally. Corneal reflexes are positive bilaterally. Facial strength and symmetry was normal bilaterally. Hearing seems normal to whisper and finger rub bilaterally. Palate moves well without asymmetry. There is normal sternocleidomastoid and trapezius (shoulder shrug) strength bilaterally. Tongue is midline with good strength bilaterally. Neck has a full range of motion without discomfort. There are no cervical bruits bilaterally. There are no cranial or ocular bruits. Heart is without murmur. There is a regular rhythm and rate. Cervical, thoracic, and lumbar spine are nontender to palpation. Gait is narrow based, with good arm swing, turns, and stance. Balance is normal eyes open or closed. With outstretched arms there is no drift. There are no resting, postural, or action tremors. There is no ataxia with finger to nose testing. There is good facility in the hands. No other abnormal involuntary movements are noted. Motor strength is 5/5 diffusely in the arms bilaterally including deltoids, biceps, triceps, brachioradialis, wrist flexors and extensors, comic artist, and intrinsic hand muscles. Motor strength is 5/5 diffusely in the legs bilaterally including hip flexors, quadriceps, hamstrings, gastrocnemius, tibialis anterior, tibialis posterior, and Peroneii muscles. Toe extensors are normal and there is good bulk in the extensor digitorum brevis muscles bilaterally. The limbs have good tone without rigidity or spasticity. There is no atrophy noted in the muscles. Muscle bulk is normal, there is no tenderness to palpation, no myotonia to percussion, and no fasciculations seen. Sensory examination is intact to touch and pin throughout all 4 limbs diffusely. Reflexes are 1/4 in the biceps, triceps, brachioradialis, quadriceps, and Achilles tendons bilaterally. There is no clonus bilaterally. Toes are downgoing with plantar stimulation bilaterally. Peripheral pulses are present and of normal quality distally in all 4 limbs. There is no peripheral edema noted in the limbs. Results & Data Vital Signs (Past 12 Hours) Vital Signs Temp Pulse Resp BP Pulse Ox 06/09/19 12:11 36.9 C 86 20 145/68 H 95 06/09/19 11:30 147/69 H 06/09/19 11:00 145/67 H 06/09/19 10:45 156/70 H 06/09/19 10:30 140/67 06/09/19 10:00 124/55 L 06/09/19 09:30 143/65 H 06/09/19 09:00 133/72 06/09/19 08:30 114/60 06/09/19 08:15 154/71 H 06/09/19 08:00 135/74 06/09/19 07:45 145/68 H 06/09/19 07:30 131/62 06/09/19 07:15 129/66 06/09/19 07:08 38 C H 95 H 18 113/58 L 94 06/09/19 06:30 98 H 138/63 06/09/19 06:15 88 146/64 H 06/09/19 06:00 90 138/61 06/09/19 05:45 85 142/63 H 06/09/19 05:30 88 134/59 L 06/09/19 05:15 94 H 138/61 06/09/19 05:00 88 149/64 H 06/09/19 04:45 89 154/66 H 06/09/19 04:30 89 155/67 H 06/09/19 04:15 85 156/68 H 06/09/19 04:00 87 162/58 H 06/09/19 03:45 85 161/64 H 06/09/19 03:36 82 156/67 H 06/09/19 03:27 37.0 C 84 18 161/67 H 92 06/09/19 03:00 80 125/51 L PG Care Time/CCT Total # of Minutes Spent Total Time Spent with Patient: 75 min
--- NOTE | 2019-06-09 15:13 | Hospitalist Progress Note ---
Date of Service June 09, 2019 Assessment & Plan (1) Headache: Patient presents with intractable, severe frontal and right-sided headache in the setting of hypertensive emergency. She had been having mild HAs off and on for the last month. Of note, was started on anastrozole around the time the HAs started She does have a long h/o migraine headaches but has not had many in her older years. Now with improvement in headache, but has developed her typical visual aura that is lasting all day today. No further nausea, no photophobia but reports she never had photophobia. BPs are improved as well. It is likely that uncontrolled HTN triggered her migraine GE Anastrozole may also be contributing to her HAs CT noncontrast of the head is negative, CTA head and neck were negative Nonfocal neurologic exam, cranial nerves are intact, mentating well -Consulted Neurology-appreciate recommendations--> not a candidate for triptans due to severe HTN -trial of tramadol for pain -IV morphine as needed for severe pain, acetaminophen as needed for pain -she will d/w her Oncologist about possibility of transitioning to alternative to anastrazole -continue good BP control (2) Intractable migraine with aura: as above -can f/u with Neuro as outpt for migraines (3) Hypertensive emergency: Blood pressures severely elevated upon admission with intractable headache as above No other evidence of end organ damage-no renal failure, no chest pain, troponin is negative. ECG without ischemic changes Blood pressure was 224/97, 201/117 upon admission In the ER, received a total of labetalol 40 mg IV, hydralazine 10 mg IV x1, and her home p.o. diltiazem 240 mg, lisinopril 10 mg, with minimal improvement had another round of IV labetalol, IV hydralazine, no improvement and was started on Cardene gtt on admission Renal artery Duplex negative Was taking a lot of NSAIDs since her mastectomy last week which could have contributed Now much improved BPs, weaned off Cardene gtt -Increased home metoprolol to 25 mg once daily, increased lisinopril to 40 mg once daily, continue home p.o. diltiazem -Appreciate cardiology consultation-appreciate recommendations, started aldactone 25mg daily and suggested converting to Coreg rather than Toprol if BP spikes again -Would discontinue any home NSAIDs -continue observation of BPs (4) HTN (hypertension), benign: With hypertensive emergency as above -Meds as above -Follow blood pressures (5) H/O mastectomy: With recent bilateral mastectomy the week prior to admission Currently with TOBI drains in place bilaterally, Steri-Strips over wounds-no evidence of infection -Has follow-up planned with her surgeon for later this week. (6) Depression: Stable -Continue home sertraline-review of outpatient record shows that the dose has recently been increased to 150 mg daily as of 06/06 (7) GERD (gastroesophageal reflux disease): Stable -Continue PPI (8) Hypothyroid: TSH here is normal at 1.24 -Continue home levothyroxine which was recently lowered in dose to 25 mcg daily down from 50 (9) Breast cancer: Status post chemotherapy, XRT, and now bilateral mastectomy 1 week ago -Continue anastrozole but consider alternative given increased headaches -Continue outpatient follow-up with oncology and breast surgeon (10) Prediabetes: Hemoglobin A1c 6.2% in 03/2019 -No need for Accu-Cheks or ADA diet (11) DVT prophylaxis: SCDs, MELISA sims No chemical prophylaxis due to severely elevated BPs Disposition-continue PCU stay Possible dc to home tomorrow if BPs continue to be controlled and headache improved Subjective Pt was still having a 7/10 right sided GE this AM and received morphine. Since then, she is feeling much improved, BPs are improved, and weaned off Cardene gtt. Was placed on O2 last night for mild hypoxia, and also was having some nausea which is now resolved. Had a fever this AM which is improved with IS and APAP. Discussed her care with Cardio and Neuro today. Pt also reports since this AM, she is now seeing "white spots in her left field of vision that she did not notice until today. She reports this is her usual aura she has with her migraines. I saw her this afternoon and she reports now the GE is down to a 3/10 in severity. Denies photophobia. Is amy po, no abd pain, no CP or SOB Review of Systems Review of Systems: All systems reviewed & are unremarkable except as noted in HPI & below Physical Exam Constitutional: WD/WN, vitals as above no acute distress Eyes: PERRL, conjunctivae normal, anicteric sclerae EOM intact bilaterally ENMT: Ears: no hearing impairment and no external ear abnormality Nose: no external nose abnormality and no nasal discharge Neck: trachea midline, no thyromegaly Respiratory: normal respiratory effort, lungs clear to auscultation Cardiovascular: RRR, no murmur, no edema Chest (Breasts): Chest: + abnormal inspection of chest (Evidence of bilateral recent mastectomy, Steri-Strips in place, periwound ecchymosis, no erythema, TOBI drains in place draining serosanguineous fluid) Gastrointestinal (Abdomen): normal bowel sounds, soft, nontender, no hepatosplenomegaly Musculoskeletal: Extremities: + extremities abnormal to inspection (Left forearm with hard cast with wrist splint in place), no cyanosis and no clubbing Skin: no rashes, warm and dry Neurologic: PERRL, EOMI, accommodation nl, no face palsy, no dysarthria CN's II-XI intact bilaterally, moves all extremities and awake; no focal motor deficits and not confused Motor/Sensory: no tremor, normal movement and no sensory deficit Psychiatric: A+Ox3, euthymic affect Results & Data Vital Signs (Past 12 Hours) Vital Signs Temp Pulse Resp BP Pulse Ox 06/09/19 12:11 36.9 C 86 20 145/68 H 95 06/09/19 11:30 147/69 H 06/09/19 11:00 145/67 H 06/09/19 10:45 156/70 H 06/09/19 10:30 140/67 06/09/19 10:00 124/55 L 06/09/19 09:30 143/65 H 06/09/19 09:00 133/72 06/09/19 08:30 114/60 06/09/19 08:15 154/71 H 06/09/19 08:00 135/74 06/09/19 07:45 145/68 H 06/09/19 07:30 131/62 06/09/19 07:15 129/66 06/09/19 07:08 38 C H 95 H 18 113/58 L 94 06/09/19 06:30 98 H 138/63 06/09/19 06:15 88 146/64 H 06/09/19 06:00 90 138/61 06/09/19 05:45 85 142/63 H 06/09/19 05:30 88 134/59 L 06/09/19 05:15 94 H 138/61 06/09/19 05:00 88 149/64 H 06/09/19 04:45 89 154/66 H 06/09/19 04:30 89 155/67 H 06/09/19 04:15 85 156/68 H 06/09/19 04:00 87 162/58 H 06/09/19 03:45 85 161/64 H 06/09/19 03:36 82 156/67 H 06/09/19 03:27 37.0 C 84 18 161/67 H 92 Laboratory Results 06/09/19 06/09/19 Range/Units 06:34 06:34 WBC 10.59 (4.8-10.8) K/uL RBC 4.09 L (4.2-5.4) M/uL Hgb 11.2 L (12.0-16.0) g/dL Hct 34.1 L (37-47) % MCV 83.4 (80-100) fL MCH 27.4 (25-34) pg MCHC 32.8 (32-36) g/dL RDW Std Deviation 47.8 H (36.4-46.3) fL RDW Coeff of Catrachito 15.6 H (11.5-14.5) % Plt Count 276 (130-400) K/uL MPV 8.9 (7.4-10.4) fL Immature Gran % (Auto) 0.2 % Neut % (Auto) 85.6 % Lymph % (Auto) 9.5 % [place] % (Auto) 4.1 % Eos % (Auto) 0.4 % Baso % (Auto) 0.2 % Immature Gran # (Auto) 0.02 (0.00-0.02) K/uL Neut # (Auto) 9.07 H (1.4-6.5) K/uL Lymph # (Auto) 1.01 L (1.2-3.4) K/uL [place] # (Auto) 0.43 (0.11-0.59) K/uL Eos # (Auto) 0.04 (0-0.5) K/uL Baso # (Auto) 0.02 (0-0.2) K/uL Sodium 136 (136-145) mmol/L Potassium 3.2 L (3.5-5.1) mmol/L Chloride 102 (98-107) mmol/L Carbon Dioxide 25 (21-32) mmol/L Anion Gap 9.0 (3-11) BUN 10 D (7-18) mg/dl Creatinine 0.85 (0.6-1.2) mg/dl Est Cr Clr Drug Dosing 56.9 ml/min Est GFR ( Amer) 78.8 Est GFR (Non-Af Amer) 68.0 BUN/Creatinine Ratio 12.1 (10-20) Glucose 170 H (70-99) mg/dl Calcium 9.2 (8.5-10.1) mg/dl Magnesium 2.2 (1.8-2.4) mg/dl PG Care Time/CCT Total # of Minutes Spent Total Time Spent with Patient: Total time spent is greater than 50% in clerical coordinator rdination of care (as documented) at patient's floor/unit and/or counseling patient: (1) Headache Headache chronicity pattern: acute headache Headache type: unspecified Intractability: not intractable Qualified Code(s): R51 - Headache
[2019-06-09] MEDS: CHOLECALCIFEROL 1,000 UNITS TAB PO SCH (21:19)
[2019-06-10] MEDS: LEVOTHYROXINE SODIUM 25 MCG TABLET PO SCH (06:04)
[2019-06-10 06:23] LABS: Basophils # (auto) 0.02 K/uL (0-0.2); Basophils % (auto) 0.3 %; Eosinophils # (auto) 0.19 K/uL (0-0.5); Eosinophils % (auto) 2.6 %; Hematocrit (blood only) 33.1 % (37-47); Hemoglobin 10.8 g/dL (12.0-16.0); Immature Granulocytes # (auto) 0.01 K/uL (0.00-0.02); Immature Granulocytes % (auto) 0.1 %; Lymphocytes # (auto) 1.08 K/uL (1.2-3.4); Lymphocytes % (auto) 14.6 %; Mean Corpuscular Hgb Conc 32.6 g/dL (32-36); Mean Corpuscular Volume 83.6 fL (80-100); Mean Platelet Volume 9.1 fL (7.4-10.4); Monocytes # (auto) 0.54 K/uL (0.11-0.59); Monocytes % (auto) 7.3 %; Neutrophils # (auto) 5.55 K/uL (1.4-6.5); Neutrophils % (auto) 75.1 %; Platelet Count 221 K/uL (130-400); RDW Coefficient of Variation 15.7 % (11.5-14.5); RDW Standard Deviation 48.2 fL (36.4-46.3); Red Blood Count 3.96 M/uL (4.2-5.4); White Blood Count 7.39 K/uL (4.8-10.8)
[2019-06-10 07:12] LABS: BUN Creatinine Ratio 16.7 (10-20); Creatinine Clr Calc Pharmacy 62.7 ml/min; Est GFR (African American) 86.1; Est GFR (Non-African American) 74.3; Magnesium 2.2 mg/dl (1.8-2.4); Potassium 3.8 mmol/L (3.5-5.1)
[2019-06-10] MEDS: PANTOprazole 40 MG TAB PO SCH (08:11)
[2019-06-10] MEDS: LISINOPRIL 40 MG TAB PO SCH (08:11)
[2019-06-10] MEDS: SERTRALINE HCL 50 MG TABLET PO SCH (08:11)
[2019-06-10] MEDS: SPIRONOLACTONE 25 MG TAB PO SCH (08:11)
[2019-06-10] MEDS: dilTIAZem HCL 240 MG CAPCR PO SCH (08:11)
[2019-06-10] MEDS: ANASTROZOLE 1 MG TAB PO SCH (08:11)
[2019-06-10] MEDS: METOPROLOL SUCC 25MG EXT REL TAB PO SCH (08:11)
[2019-06-10] MEDS ORDERED: SPIRONOLACTONE 25 MG TAB PO ONE (09:03)
--- NOTE | 2019-06-10 10:10 | Cardiology Progress Note ---
Date of Service June 10, 2019 Assessment & Plan (1) Hypertensive emergency: Blood pressure has improved overall and has been mostly mildly hypertensive off of nicardipine. She has had some episodes of normal blood pressure but this morning once again has severe hypertension, but is completely asymptomatic. Spironolactone and beta-charleen has been adjusted by the primary service. Would ensure that she tolerates higher doses of beta-charleen. Arimidex may have been the cause of her recent significant elevation in her blood pressure as the timing of the medication initiation appears similar to her uncontrolled hypertension. We discussed this today. She plans on discussing this with her nuclear cardiology technologist/oncologist later this week at her scheduled appointment. If her blood pressure cannot be adequately controlled, Hematology/Oncology can decide if there are other options for her breast cancer treatment. (2) Headache: Headache has completely resolved. Neurology has been consulted. (3) Disposition: Plan of care discussed with Dr. Thomas of the primary hospitalist service. Please call with any other questions or concerns. Subjective Her headache has completely resolved. She also denies chest pain, shortness of breath, syncope, near-syncope, palpitations, edema, or bleeding. She is hoping to go home today. Spironolactone and beta-charleen has been adjusted by the the neuromedical center service. Review of systems: As above. Physical Exam Physical Exam: Gen.: No acute distress. Alert and oriented. HEENT: Anicteric sclera. Neck: No JVD. Cardiac: Regular. Normal S1-S2. No murmur auscultated today. No rubs, or gallops. Pulmonary: Clear to auscultation bilaterally without wheezes, rales, or rhonchi. Abdomen: Soft, nontender, nondistended, with normoactive bowel sounds. No bruits noted. Extremities: No edema or cyanosis. Psychiatric: Affect appears appropriate. Results & Data Vital Signs (Past 12 Hours) Vital Signs Temp Pulse Resp BP Pulse Ox 06/10/19 07:38 36.6 C 84 16 182/81 H 94 06/10/19 04:06 37 C 81 20 159/73 H 93 06/09/19 23:33 36.9 C 78 22 133/65 97 Laboratory Results Laboratory Results - last 24 hr 06/10/19 06/10/19 05:58 05:58 WBC 7.39 RBC 3.96 L Hgb 10.8 L Hct 33.1 L MCV 83.6 MCH 27.3 MCHC 32.6 RDW Std Deviation 48.2 H RDW Coeff of Catrachito 15.7 H Plt Count 221 MPV 9.1 Immature Gran % (Auto) 0.1 Neut % (Auto) 75.1 Lymph % (Auto) 14.6 [place] % (Auto) 7.3 Eos % (Auto) 2.6 Baso % (Auto) 0.3 Immature Gran # (Auto) 0.01 Neut # (Auto) 5.55 Lymph # (Auto) 1.08 L [place] # (Auto) 0.54 Eos # (Auto) 0.19 Baso # (Auto) 0.02 Sodium 137 Potassium 3.8 D Chloride 103 Carbon Dioxide 28 Anion Gap 6.0 BUN 13 Creatinine 0.79 Est Cr Clr Drug Dosing 62.7 Est GFR ( Amer) 86.1 Est GFR (Non-Af Amer) 74.3 BUN/Creatinine Ratio 16.7 Glucose 97 Calcium 9.0 Magnesium 2.2 Diagnostic Findings Telemetry personally reviewed: Sinus rhythm. Medications Administered Current Inpatient Medications Acetaminophen (Tylenol) 1,000 mg PO Q8H PRN PRN Reason: Pain Stop: 07/08/19 09:57 Last Admin: 06/09/19 07:18 Dose: 1,000 mg Documented by: Anastrozole (Arimidex) 1 mg PO DAILY [facility] Stop: 07/08/19 10:14 Last Admin: 06/10/19 08:11 Dose: 1 mg Documented by: Carvedilol (Coreg) 12.5 mg PO BID [facility] Stop: 07/10/19 20:59 Cyclobenzaprine HCl (Flexeril) 5 mg PO HS PRN PRN Reason: muscle spasm Stop: 07/08/19 09:57 Diltiazem HCl (Cardizem Cd) 240 mg PO QAM [facility] Stop: 07/08/19 10:14 Last Admin: 06/10/19 08:11 Dose: 240 mg Documented by: Hydralazine HCl (Hydralazine Hcl) 10 mg IV Q6 PRN PRN Reason: SBP>180 or DBP>110 Stop: 07/08/19 09:57 Last Admin: 06/08/19 11:05 Dose: 10 mg Documented by: Nicardipine HCl 25 mg/ Sodium (Chloride) 250 mls @ 0 mls/hr IV .Q0M [facility]; Protocol Stop: 07/08/19 12:14 Last Titration: 06/10/19 08:25 Dose: Infused Documented by: Ioversol (Optiray 320 125ml) 119 ml IV ONCE PRN PRN Reason: Interaction Checking Stop: 06/12/19 13:28 Last Admin: 06/08/19 13:29 Dose: 119 ml Documented by: Labetalol HCl (Normodyne) 20 mg IV Q6H PRN PRN Reason: SBP>180 or DBP>110 Stop: 07/08/19 09:57 Levalbuterol HCl (Xopenex Hfa) 2 puffs INH Q6H PRN PRN Reason: shortness of breath Stop: 07/08/19 09:57 Levothyroxine S[facility]) [facility] Stop: 07/09/19 06:29 Last Admin: 06/10/19 06:04 Dose: 25 mcg Documented by: Lisinopril (Zestril) 40 mg PO DAILY [facility] Stop: 07/08/19 10:14 Last Admin: 06/10/19 08:11 Dose: 40 mg Documented by: Ondansetron HCl (Zofran) 4 mg IV Q6H PRN PRN Reason: Nausea Stop: 07/08/19 09:57 Last Admin: 06/08/19 20:13 Dose: 4 mg Documented by: Pantoprazole Sodium (Protonix) 40 mg PO DAILY [facility] Stop: 07/08/19 10:14 Last Admin: 06/10/19 08:11 Dose: 40 mg Documented by: [facility]raline HCl (Zoloft) [facility] [place]: 07/09/19 08:59 Last Admin: 06/10/19 08:11 Dose: 150 mg Documented by: Sodium Chloride ([place] Nasal) 2 sprays NA Q1H PRN PRN Reason: Prophylaxis Stop: 07/09/19 03:05 Last Admin: 06/09/19 03:10 Dose: 2 sprays Documented by: Spironolactone (Aldactone) 50 mg PO QAM [facility] Stop: 07/11/19 08:59 Tramadol HCl (Ultram) 50 mg PO Q4H PRN PRN Reason: Pain Stop: 07/09/19 15:01 Vitamin D (Vitamin D3) 2,[address] [facility] Stop: 07/08/19 20:59 Last Admin: 06/09/19 21:19 Dose: 2,000 units Documented by: PG Care Time/CCT Total # of Minutes Spent Total Time Spent with Patient: Total time spent is greater than 50% in coordination of care (as documented) at patient's floor/unit and/or counseling patient: (1) Headache Headache chronicity pattern: acute headache Headache type: unspecified Intractability: not intractable Qualified Code(s): R51 - Headache
[2019-06-10 11:50] VITALS: TEMP 98.4
--- NOTE | 2019-06-10 15:31 | Discharge Summary ---
Date of Service June 10, 2019 Admission HPI Per Admitting Provider This pt is a 74 yo female with a h/o breast CA s/p chemo/XRT and recent mastectomy one week ago, HTN, prediabetes, hypothyroidism, GERD, depression, who presents with severe frontal and right sided headache and hypertensive emergency. Denies nausea or vomiting, no chest pain or SOB, no abdominal pain. She reports having elevated BPs over the last month or so and recently had her lisinopril dose increased to 40mg about 2 weeks ago, her diltiazem dose increased to 240mg one month ago, and then was in the ER on 05/30 with a BP of 200 systolic and had Toprol XL 12.5mg daily added on. She reports having headaches off and on for a week and has been taking ibuprofen and tylenol since her mastectomies last week. She then woke up last night with a severe headache at 0300. It is a 10/10, located frontally and on right side of face anterior to her right ear. Denies any associated vision changes, no numbness/tingling/weakness, no speech changes or slurred speech. BP in the ER initially was 201/117 and then was 224/97. She was given IV labetalol 40mg x 1, hydralazine 10mg IV x 1, and a head CT noncon was performed and was negative. BPs did come down initially to 180s systolic and headache did improve just slightly, then BPs came back up. Troponin negative, ECG without ischemic changes. K+ low at 3.0 and replaced.Renal function normal. Principal Diagnosis Hypertensive emergency, intractable migraine Discharge Exam Constitutional WD/WN, vitals as above no acute distress Eyes PERRL, conjunctivae normal, anicteric sclerae EOM intact bilaterally ENMT Ears: no hearing impairment and no external ear abnormality Nose: no external nose abnormality and no nasal discharge Neck trachea midline, no thyromegaly Respiratory normal respiratory effort, lungs clear to auscultation Cardiovascular RRR, no murmur, no edema Chest (Breasts) Chest: + abnormal inspection of chest (Evidence of bilateral recent mastectomy, Steri-Strips in place, periwound ecchymosis, no erythema, TOBI drains in place draining serosanguineous fluid) Gastrointestinal (Abdomen) normal bowel sounds, soft, nontender, no hepatosplenomegaly Musculoskeletal Extremities: + extremities abnormal to inspection (Left forearm with hard cast with wrist splint in place), no cyanosis and no clubbing Skin no rashes, warm and dry Neurologic PERRL, EOMI, accommodation nl, no face palsy, no dysarthria moves all extremities and awake; no focal motor deficits and not confused Motor/Sensory: no tremor, normal movement and no sensory deficit Psychiatric A+Ox3, euthymic affect Discharge Data Allergies Allergy/AdvReac Type Severity Reaction Status Date / Time Penicillins Allergy Intermediate RASH Verified 06/19/19 11:29 shellfish derived Allergy Mild HIVES RASH Verified 06/19/19 11:29 propoxyphene [From Darvon] AdvReac Unknown Verified 06/19/19 11:29 Consultations Cardiology Neurology Ordered Studies 06/08/19 04:36 CT head/brain wo con Urgent 06/08/19 09:58 US duplex renal artery Urgent 06/08/19 12:41 CT angio head w con Stat CT angio neck with con Stat Chest x-ray Hospital Course (1) Headache: Patient presents with intractable, severe frontal and right-sided headache in the setting of hypertensive emergency. She had been having mild HAs off and on for the last month. Of note, was started on anastrozole around the time the HAs started She does have a long h/o migraine headaches but has not had many in her older years. Now with complete resolution of headache after 2 day; she did develop her typical visual aura after admission, lasted 24 hours. No further nausea, no photophobia but reports she never had photophobia. BPs are improved as well. It is likely that uncontrolled HTN triggered her migraine GE Anastrozole may also be contributing to her HAs CT noncontrast of the head is negative, CTA head and neck were negative Nonfocal neurologic exam, cranial nerves are intact, mentating well -Consulted Neurology-appreciate recommendations--> not a candidate for triptans due to severe HTN -trial of tramadol for pain but she never ended up needing it -IV morphine as needed was given on several occasions for severe pain, acetaminophen as needed for pain -she will d/w her Oncologist about possibility of transitioning to alternative to anastrazole -continue good BP control (2) Intractable migraine with aura: as above -can f/u with Neuro as outpt for migraines (3) Hypertensive emergency: Blood pressures severely elevated upon admission with intractable headache as above No other evidence of end organ damage-no renal failure, no chest pain, troponin is negative. ECG without ischemic changes Blood pressure was 224/97, 201/117 upon admission In the ER, received a total of labetalol 40 mg IV, hydralazine 10 mg IV x1, and her home p.o. diltiazem 240 mg, lisinopril 10 mg, with minimal improvement had another round of IV labetalol, IV hydralazine, no improvement and was s tarted on Cardene gtt on admission Renal artery Duplex negative Was taking a lot of NSAIDs since her mastectomy last week which could have contributed Now much improved BPs, weaned off Cardene gtt -Increased home metoprolol to 25 mg once daily but then SWITCHED to COREG 12.5mg bid - increased lisinopril to 40 mg once daily, continue home p.o. diltiazem 240mg once daily -Appreciate cardiology consultation-appreciate recommendations, started aldactone 25mg daily -Would discontinue any home NSAIDs -continue observation of BPs as outpt at home nad with PCP (4) HTN (hypertension), benign: With hypertensive emergency as above -Meds as above -Follow blood pressures (5) H/O mastectomy: With recent bilateral mastectomy the week prior to admission Currently with TOBI drains in place bilaterally, Steri-Strips over wounds-no evidence of infection -Has follow-up planned with her surgeon for later this week. (6) Depression: Stable -Continue home sertraline-review of outpatient record shows that the dose has recently been increased to 150 mg daily as of 06/06 (7) GERD (gastroesophageal reflux disease): Stable -Continue PPI (8) Hypothyroid: TSH here is normal at 1.24 -Continue home levothyroxine which was recently lowered in dose to 25 mcg daily down from 50 (9) Breast cancer: Status post chemotherapy, XRT, and now bilateral mastectomy 1 week ago -Continue anastrozole but consider alternative given increased headaches -Continue outpatient follow-up with oncology and breast surgeon (10) Prediabetes: Hemoglobin A1c 6.2% in 03/2019 -No need for Accu-Cheks or ADA diet (11) DVT prophylaxis: SCDs, MELISA hose No chemical prophylaxis due to severely elevated BPs Disposition-stable for dc to home, doing very well now Total Time Total Time Spent Total Time Spent (In Minutes): >30 min Total Time Includes: Examination of the Patient, Discharge Planning, Medication Reconciliation and Communication With Other Providers (Cardiology) Discharge Plan Discharge Items Patient Disposition: Home - Home Health Services Reason For Visit: HYPERTENSIVE EMERGENCY Discharge Diagnosis: Hypertensive emergency, intractable migraine Condition: Good Discharge Goals: Decrease discomfort, Diagnostic testing, Improve disease control, Learn about illness and Therapeutic intervention Activity: Resume your previous activity Exercise/Sports: As tolerated Non-emergency contact: Primary Care Provider and Perlite Grinder Call non-emergency contact if: you have any medication questions, your symptoms worsen, your pain is not controlled, your pain is worsening, your pain is unusual for you and your pain is concerning for you Follow-up/Referrals: Warren Bruner PA-C [Physician Embedded Nurse] - 06/23/19 1:00 pm (A follow up appt. has been made for you with Warren Bruner PA-C on June 23 at 1:00pm.) Lazarus George III, MD [Physician] - 08/26/19 1:00 pm (A follow up appt. has been made with Marjorie Velasquez PA-C at Dr. George's office on August 26 at 1:00pm.) Armin Mosher MD [Primary Care Provider] - 06/19/19 11:20 am (A follow up appt. has been made with Dr. Bullard on 06/19 at 11:20am.) Diet: Heart Healthy Addtl Provider Instructions: You were admitted with severely elevated blood pressures which likely induced your intractable migraine. You were given medications to control your blood pressure, as well as pain medicine for your headache. Blood pressure is now much improved and your headache is resolved. Please note all of the changes to your blood pressure medications on the medication list provided to you at the time of discharge. There is a chance that your anastrozole could be contributing to your worsening pressure and headaches. Please discuss this with your oncologist to see if there is an alternative you could take to the anastrozole. Also, ibuprofen could be causing high blood pressure and should be stopped. Please follow-up with the slicer machine operator, your primary care physician, and the neurologist as scheduled for you. Prescriptions: New lisinopril [Zestril] 40 mg Tablet 40 mg PO DAILY Qty: 30 RF: 0 carvedilol 12.5 mg Tablet 12.5 mg PO BID Qty: 60 RF: 0 spironolactone 50 mg tablet 50 mg PO DAILY Qty: 30 RF: 0 tramadol 50 mg Tablet 50 mg PO Q4H PRN (Reason: pain) Qty: 20 RF: 0 Continued omeprazole 10 mg capsule,delayed release(DR/EC) 10 mg PO DAILY Qty: 90 RF: 1 anastrozole [Arimidex] 1 mg tablet 1 mg PO DAILY RF: 0 sertraline 100 mg tablet 150 mg PO QAM RF: 0 melatonin 1 mg tablet 1 mg PO HS PRN (Reason: Sleep) RF: 0 acetaminophen [Tylenol Extra Strength] 500 mg Tablet 500 mg PO Q6H PRN (Reason: Pain) RF: 0 levothyroxine 50 mcg tablet 25 mcg PO QAM RF: 0 diltiazem HCl [Cartia XT] 240 mg capsule,extended release 24hr 240 mg PO QAM RF: 0 Discontinued metoprolol succinate [Toprol XL] 25 mg tablet extended release 24 hr 12.5 mg PO DAILY Qty: 15 RF: 1 lisinopril 10 mg tablet 30 mg PO DAILY RF: 0 No Action cholecalciferol (vitamin D3) [Vitamin D3] 2,000 unit capsule 2,000 unit PO PM RF: 0 Stand-Alone Forms: [facility] Discharge Orders: Discharge Order (Routine); Ordered 06/10/19 Ordered By: Karissa Thomas Admission Data Admit Date/Time: 06/08/19 19:11 Attending Provider: Karissa Thomas Admit Provider: Karissa Thomas Primary Care Provider: Armin Mosher V. Other Providers: Maverick Cannon Emile Pierre III Service: Telemetry Other Interventions: Discharge Summary Assessment (RN) Last Done: 06/10/19 17:22 Pending Studies at Discharge: No DC Date/Time DO NOT enter until pt leaves facility: 06/10/19 18:00
[2019-06-10 17:19] VITALS: BP 151/77; PULSE 77; O2SAT 95
[2019-06-10] MEDS ORDERED: CARVEDILOL 12.5 MG TAB PO SCH (21:00)
[2019-06-11] MEDS ORDERED: SPIRONOLACTONE 25 MG TAB PO SCH (09:00)
== END 2019-06-10 18:00 | disposition home health service (06) | DRG 305 ==
LOC: 2S 04:27 → ED 04:27 → 2S 09:35
DX: R50.81 Fever presenting with conditions classified elsewhere; C50.919 Malignant neoplasm of unspecified site of unspecified female breast; I16.1 Hypertensive emergency; E87.6 Hypokalemia; R73.03 Prediabetes; E03.9 Hypothyroidism, unspecified; F32.9 Major depressive disorder, single episode, unspecified; R29.6 Repeated falls; I10 Essential (primary) hypertension; Z91.013 Allergy to seafood; K21.9 Gastro-esophageal reflux disease without esophagitis; Z79.899 Other long term (current) drug therapy; Z48.817 Encounter for surgical aftercare following surgery on the skin and subcutaneous tissue; Z88.5 Allergy status to narcotic agent; J98.11 Atelectasis; R09.02 Hypoxemia; G43.119 Migraine with aura, intractable, without status migrainosus; Z90.13 Acquired absence of bilateral breasts and nipples; T40.2X5A Adverse effect of other opioids, initial encounter; Z88.0 Allergy status to penicillin